=== PATIENT | male | born 1955 | race Caucasian/White ===

== ENCOUNTER 2017-10-08 16:39 | Inpatient (IN) | payer MEDICARE, MEDICAID ==
--- NOTE | 2017-10-08 18:04 | ED Physician Chart ---
ED Chief Complaint/HPI - Patient Information Date Seen:: 10/08/17 Time Seen:: 18:00 Chief Complaint:: Wanted to end life History of Present Illness:: 62 yo male wanted to "euthanize'' himself because he was blind and he also worried that social security would end soon. Allergies:: Allergies Allergy/AdvReac Type Severity Reaction Status Date / Time fluphenazine Allergy Verified 04/07/16 14:52 prolixin Allergy Uncoded 11/22/15 16:40 Vitals:: Vital Signs - 8 hr 10/08/17 16:42 Temp 98.5 F HR 69 RR 17 BP 141/86 O2 Sat % 98 Family Medical History - Family Member Mother History Unknown: Yes Ethnicity: Unknown Living Status: Unknown Hx Family Cancer: (Unknown) Hx Family Coronary Artery Disease: (Unknown) Hx Family Congestive Heart Failure: (Unknown) Hx Family Hypertension: (Unknown) Hx Family Stroke: (Unknown) Hx Family Diabetes: (Unknown) Hx Family Seizures: (Unknown) Hx Family Dementia: (Unknown) Hx Family AIDS: (Unknown) Hx Family HIV: No Hx Family COPD: (Unknown) Hx Family Hepatitis: (Unknown) Hx Family Psychiatric Problems: (Unknown) Hx Family Tuberculosis: (Unknown) Father History Unknown: Yes Ethnicity: Unknown Living Status: Unknown Hx Family Hypertension: Yes Hx Family Psychiatric Problems: Yes ED Septic Shock - <6hrs of presentation: Vital Signs: Vital Signs - 8 hr 10/08/17 16:42 Temp 98.5 F HR 69 RR 17 BP 141/86 O2 Sat % 98 ED Discharge Plan - Patient Disposition Instructions: Psychosis
[2017-10-08 18:32] LABS: % BASOPHILS 1.6 % (0.0-2.0); % EOSINOPHILS 2.1 % (0.0-5.0); % LYMPHOCYTES 28.6 % (20.0-50.0); % NEUTROPHILS 58.7 % (40.0-80.0); BASOPHILE ABSOLUTE 0.1 Th/cumm (0-0.2); EOSINOPHILE ABSOLUTE 0.1 Th/cmm (0.1-0.4); HEMATOCRIT 38.8 % (41.0-60); HEMOGLOBIN 13.3 gm/dL (12-16); LYMPHOCYTE ABSOLUTE 1.3 Th/cmm (1.5-3.0); MEAN CELL VOLUME 88.1 fl (80-99); MEAN CORPUSCULAR HEMOGLOBIN 30.2 pg (26.0-30.0); MEAN CORPUSCULAR HGB CONC 34.2 pg (28.0-36.0); MEAN PLATELET VOLUME 7.4 fl; MONOCYTE ABSOLUTE 0.4 Th/cmm (0.3-1.0); NEUTROPHILE ABSOLUTE 2.6 Th/cmm (1.8-8.0); PLATELET COUNT 184 Th/cmm (150-400); RED BLOOD COUNT 4.41 Mil/cmm (4.30-5.70); RED CELL DISTRIBUTION WIDTH 12.8 % (11.5-20.0); WHITE BLOOD COUNT 4.5 Th/cmm (4.8-10.8)
[2017-10-08 18:44] LABS: URINE MICROSCOPIC INDICATED? YES; URINE SOURCE RANDOM
[2017-10-08 18:48] LABS: ALB/GLOB RATIO 1.4 (1.0-1.8); ALBUMIN 3.7 gm/dL (4.2-5.5); ALKALINE PHOSPHATASE 46 U/L (34-104); BILIRUBIN,TOTAL 0.5 mg/dL (0.3-1.0); BUN - UREA NITROGEN 15 mg/dL (7-25); CALCIUM SERUM 9.1 mg/dL (8.6-10.3); CHLORIDE 106 mEq/L (98-107); CREATININE - SERUM 0.7 mg/dL (0.7-1.3); GFR AFRICAN-AMERICAN > 60.0 ml/min (>90); GFR NON AFRICAN-AMERICAN > 60.0 ml/min; GLUCOSE 99 mg/dL (70-105); SGOT 11 U/L (13-39); SGPT/ALT 5 U/L (7-52); SODIUM SERUM 138 mEq/L (136-145); TOTAL PROTEIN,SERUM 6.4 gm/dL (6.0-8.3)
[2017-10-08 18:50] LABS: URINE BILIRUBIN NEGATIVE (NEGATIVE); URINE BLOOD NEGATIVE (NEGATIVE); URINE GLUCOSE (UA) NEGATIVE (NEGATIVE); URINE KETONE TRACE mg/dL (NEGATIVE); URINE LEUKOCYTE ESTERASE NEGATIVE (NEGATIVE); URINE NITRATE NEGATIVE (NEGATIVE); URINE PH 6.5 (4.6 - 8.0); URINE PROTEIN NEGATIVE (NEGATIVE)
[2017-10-08 18:53] LABS: URINE CLARITY CLEAR (CLEAR); URINE COLOR YELLOW
[2017-10-08 18:54] LABS: URINE BACTERIA NONE SEEN /hpf (NONE SEEN); URINE EPITHELIAL CELLS NONE SEEN /lpf (FEW); URINE RBC NONE SEEN /hpf (0-5); URINE WBC NONE SEEN /hpf (0-5)
[2017-10-08] MEDS ORDERED: Maalox 30 mL Cup PO PRN (21:10)
[2017-10-08] MEDS ORDERED: Magnesium Hydroxide (MOM) 30 mL UDC PO PRN (21:10)
[2017-10-09 03:14] VITALS: BP 116/66
--- NOTE | 2017-10-09 08:25 | Diagnostic Imaging Report ---
Portable chest x-ray HISTORY: Shortness of breath The heart size appears somewhat generous. No focal pulmonary processes. No hilar or mediastinal abnormalities. IMPRESSION: 1. No acute focal pulmonary processes
[2017-10-09] MEDS: Multivitamin Tab PO SCH (09:14)
[2017-10-09] MEDS: Escitalopram Oxalate 5 mg Tab PO SCH (09:14)
[2017-10-09] MEDS ORDERED: Magnesium Hydroxide (MOM) 30 mL UDC PO PRN (13:02)
--- NOTE | 2017-10-09 16:36 | History & Physical ---
ADMIT DATE: 10/08/2017 CHIEF COMPLAINT: Medical evaluation and clearance. The patient admitted to inpatient unit. HISTORY OF PRESENT ILLNESS: This is a 62-year-old male with history of hypertension, asthma, BPH. The patient was admitted from nursing facility secondary to complaints of ____. The patient is a poor historian. PAST MEDICAL HISTORY: As mentioned in history of present illness. PAST SURGICAL HISTORY: Unable to obtain from the patient. ALLERGIES: PROLIXIN. MEDICATIONS: Tylenol, Norvasc, Colace, Lexapro, Ativan, multivitamin, and Zyprexa. FAMILY HISTORY: Noncontributory. SOCIAL HISTORY: The patient is a shelter patient. REVIEW OF SYSTEMS: This is limited secondary to the patient's comatose state. We will try to obtain more detailed review of systems at a later date by talking to family members and listening to patient. We will try to get more information from Dr. Angulo. PHYSICAL EXAMINATION: VITAL SIGNS: Blood pressure 136/76, respirations 16, pulse 73, and temperature 97.9. GENERAL: Elderly male, who appears chronically ill. NECK: Supple. No mass. LUNGS: Equal breath sounds, few rhonchi ____ HEART: Regular rate and rhythm without systolic ejection murmur. ABDOMEN: Soft, globular. EXTREMITIES: Positive excoriations. LABORATORY DATA: WBC is 4.5, hemoglobin 13, and platelets 184. Sodium 138, potassium 4.0, BUN 15, creatinine 0.7, AST and ALT are 11 and 5, albumin 3.7. ASSESSMENT AND PLAN: Hypertension, asthma, benign prostatic hypertrophy, legal blindness, leukopenia, schizoaffective disorder, mild protein-calorie malnutrition. We will review the patient's medication. We will give the patient adequate nutritional support. Continue the patient on return as needed basis. Continue on Norvasc. We will continue with the current care with followup consult. We will continue to follow the patient with Dr. Angulo. JOB# [id number]
--- NOTE | 2017-10-09 20:30 | Psychosocial Evaluation ---
DATE OF SERVICE: 10/09/2017 JUSTIFICATION FOR HOSPITALIZATION: Suicidal, he wanted to euthanize himself. HISTORY OF PRESENT ILLNESS: A 62-year-old male, depressed, overwhelmed. States he is suicidal. States he is legally blind, fearful to lose his SSI, hopeless and despairing, not sleeping very well, fair appetite, talking about "euthanasia." PAST PSYCHIATRIC HISTORY: He has thought about suicide in the past, never attempted. MEDICATIONS: Reviewed. FAMILY PSYCH HISTORY: Unknown. SOCIAL HISTORY: Born in [place], not , states he had been but "we split up." No drugs, no alcohol, no tobacco, no kids. The patient currently residing in the [facility]. MENTAL STATUS EXAMINATION: Stated age. Fair eye contact. Apparently legally blind. Speech within normal limits. Mood depressed. Affect depressed. Thought processes were linear. The patient talking about suicide, endorsing thoughts to overdose. No HI. No overt psychotic symptoms. Insight and judgment diminished. PROVISIONAL DIAGNOSES: Major depression, recurrent, severe. No overt psychosis. Medical: Please see full H and P. ESTIMATED LENGTH OF STAY: 7-10 days. ASSESSMENT: The patient suicidal, depressed, overwhelmed, hopeless. PLAN: Initiate antidepressant medications. TREATMENT PLAN: Includes group as well as milieu therapy. CONDITIONS FOR DISCHARGE: Improved mood, improved affect, cessation of any SI, better coping. JOB# [id number]
--- NOTE | 2017-10-10 06:35 | Progress Notes ---
DATE: 10/10/2017 SUBJECTIVE: A 62-year-old male, depressed, overwhelmed, suicidal, legally blind and fearful to lose his SSI, hopeless, despairing talking about euthanasia. On [id number], the patient refusing to speak with me stating, "I am sleeping" go away, does not want to engage with me, still appearing depressed, melancholic, low energy, reclusive, isolative, still talking about euthanasia. MEDICATIONS: Reviewed. ASSESSMENT: The patient remains symptomatic, depressed, overwhelmed, suicidal, irritable, does not want to engage with me. PLAN: Continue to monitor. Continue Lexapro, given his ongoing symptoms, he is not safe for discharge. [facility]# [id number]
[2017-10-10] MEDS: Multivitamin Tab PO SCH (10:00)
[2017-10-10] MEDS: Escitalopram Oxalate 5 mg Tab PO SCH (10:00)
[2017-10-10] MEDS: Multivitamin w/ Minerals Tab PO SCH (10:00)
--- NOTE | 2017-10-10 12:44 | Internal Medicine Prog Note ---
Internal Medicine Subjective - Subjective Patient seen and examined:: with staff, chart reviewed Patient is:: asleep, interactive, in bed, agitated Per staff patient has:: no adverse event, no episodes of fall, poor appetite, tolerating meds Internal Medicine Objective - Results Result Diagrams: 10/08/17 18:24 10/08/17 18: Recent Labs: Laboratory Last Values WBC 4.5 Th/cmm (4.8-10.8) L 10/08/17 18: RBC 4.41 Mil/cmm (4.30-5.70) 10/08/17 18: Hgb 13.3 gm/dL (12-16) 10/08/17: Hct 38.8 % (41.0-60) L 10/08/17: MCV 88.1 fl (80-99) 10/08/17 18: MCH 30.2 pg (26.0-30.0) H 10/08/17: MCHC Differential 34.2 pg (28.0-36.0) 10/08/17: RDW 12.8 % (11.5-20.0) 10/08/17: Plt Count 184 Th/cmm (150-400) 10/08/17: MPV 7.4 fl 10/08/17: Neutrophils % 58.7 % (40.0-80.0) 10/08/17: Lymphocytes % 28.6 % (20.0-50.0) 10/08/17: Monocytes % 9.0 % (2.0-10.0) 10/08/17: Eosinophils % 2.1 % (0.0-5.0) 10/08/17: Basophils % 1.6 % (0.0-2.0) 10/08/17 18: Sodium 138 mEq/L (136-145) 10/08/17 18: Potassium 4.0 mEq/L (3.5-5.1) 10/08/17 18: Chloride 106 mEq/L (98-107) 10/08/17 18: Carbon Dioxide 28.0 mEq/L (21.0-31.0) 10/08/17 18: Anion Gap 8.0 (7.0-16.0) 10/08/17 18:24 BUN 15 mg/dL (7-25) 10/08/17 18:24 Creatinine 0.7 mg/dL (0.7-1.3) 10/08/17 18:24 Est GFR ( Amer) > 60.0 ml/min (>90) 10/08/17 18:24 Est GFR (Non-Af Amer) > 60.0 ml/min 10/08/17 18:24 BUN/Creatinine Ratio 21.4 10/08/17 18:24 Glucose 99 mg/dL (70-105) 10/08/17 18:24 Calcium 9.1 mg/dL (8.6-10.3) 10/08/17 18:24 Total Bilirubin 0.5 mg/dL (0.3-1.0) 10/08/17 18:24 AST 11 U/L (13-39) L 10/08/17 18:24 ALT 5 U/L (7-52) L 10/08/17 18:24 Alkaline Phosphatase 46 U/L (34-104) 10/08/17 18:24 Total Protein 6.4 gm/dL (6.0-8.3) 10/08/17 18:24 Albumin 3.7 gm/dL (4.2-5.5) L 10/08/17 18:24 Globulin 2.7 gm/dL 10/08/17 18:24 Albumin/Globulin Ratio 1.4 (1.0-1.8) 10/08/17 18: TSH 1.68 uIU/ml (0.34-5.60) 10/08/17 18: Urine Source RANDOM 10/08/17 18:36 Urine Color YELLOW 10/08/17 18:36 Urine Clarity CLEAR (CLEAR) 10/08/17 18:36 Urine pH 6.5 (4.6 - 8.0) 10/08/17 18:36 Ur Specific [place] 1.020 (1.005-1.030) 10/08/17 18:36 Urine Protein NEGATIVE mg/dL (NEGATIVE) 10/08/17 18:36 Urine Glucose (UA) NEGATIVE mg/dL (NEGATIVE) 10/08/17 18:36 Urine Ketones TRACE mg/dL (NEGATIVE) 10/08/17 18:36 Urine Blood NEGATIVE (NEGATIVE) 10/08/17 18:36 Urine Nitrate NEGATIVE (NEGATIVE) 10/08/17 18:36 Urine Bilirubin NEGATIVE (NEGATIVE) 10/08/17 18:36 Urine Urobilinogen 1.0 E.U./dL (0.2 - 1.0) 10/08/17 18:36 Ur Leukocyte Esterase NEGATIVE (NEGATIVE) 10/08/17 18:36 Urine RBC NONE SEEN /hpf (0-5) 10/08/17 18:36 Urine WBC NONE SEEN /hpf (0-5) 10/08/17 18:36 Ur Epithelial Cells NONE SEEN /lpf (FEW) 10/08/17 18:36 Urine Bacteria NONE SEEN /hpf (NONE SEEN) 10/08/17 18:36 - Physical Exam Vitals and I&O: Vital Signs Temp 98.1 F 10/10/17 06:49 Pulse 60 10/10/17 08:00 Resp 20 10/10/17 08:00 BP 108/63 10/10/17 06:49 Pulse Ox 96 10/10/17 06:49 Intake & Output 10/09/17 10/10/17 10/10/17 18:59 06:59 18:59 Intake Total 800 120 Balance 800 120 Intake: Oral 800 120 Other: # Voids 3 2 # Bowel Movements 0 Active Medications: Current Medications Acetaminophen (Tylenol) 650 mg PO Q4HR PRN PRN Reason: Mild Pain / Temp above 100 Stop: 12/07/17 21:09 Acetaminophen (Tylenol) 650 mg PO Q4HR PRN PRN Reason: Pain Stop: 12/08/17 13:01 Al Hydrox/Mg Hydrox/Simethicone (Maalox) 30 ml PO Q4HR PRN PRN Reason: GI DISTRESS Stop: 12/07/17 21:09 Amlodipine Besylate (Norvasc) 2.5 mg PO DAILY [facility] Stop: 12/09/17 08:59 Last Admin: 10/10/17 10:13 Dose: Not Given Docusate Sodium (Colace) 100 mg PO BID [facility] Stop: 12/08/17 16:59 Last Admin: 10/10/17 10:00 Dose: 100 mg Escitalopram Oxalate (Lexapro) 5 mg PO DAILY SHERRY PRN Reason: Protocol Stop: 12/08/17 08:59 Last Admin: 10/10/17 10:00 Dose: 5 mg Lorazepam (Ativan) 0.5 mg PO Q4HR PRN; Protocol PRN Reason: Anxiety Stop: 11/07/17 21:09 Magnesium Hydroxide (Milk Of Magnesia) 30 ml PO HS PRN PRN Reason: Constipation Magnesium Hydroxide (Milk Of Magnesia) 30 ml PO DAILY PRN PRN Reason: Constipation Stop: 12/08/17 13:01 Multivitamins/Vitamin C (Theragran) 1 tab PO DAILY SHERRY Stop: 12/08/17 08:59 Last Admin: 10/10/17 10:00 Dose: 1 tab Zolpidem Tartrate (Ambien) 5 mg PO HS PRN PRN Reason: Insomnia Stop: 12/07/17 21:09 Last Admin: 10/09/17 22:17 Dose: 5 mg General: demented HEENT: NC/AT, PERRLA Neck: Supple, No JVD Lungs: CTAB Cardiovascular: RRR, Normal S1, Normal S2 Abdomen: soft, non-tender, globular, non-distended, positive bowel sound Extremities: excoriation Neurological: no change, disorganized - Procedures Procedures: Procedures Procedure Code Date EMERGENCY DEPT VISIT 88305 10/29/11 GROUP PSYCHOTHERAPY 15411 11/22/15 GROUP PSYCHOTHERAPY GZHZZZZ 11/22/15 GROUP PSYCHOTHERAPY 74832 08/21/15 GROUP PSYCHOTHERAPY GZHZZZZ 08/21/15 OTHER GROUP THERAPY 94.44 02/19/15 Internal Medicine Assmt/Plan - Assessment Assessment: ASSESSMENT AND PLAN: Hypertension, asthma, benign prostatic hypertrophy, legal blindness, leukopenia, schizoaffective disorder, mild protein-calorie malnutrition. - Plan Plan: AWe will review the patient's medication. We will give the patient adequate nutritional support. Continue the patient on return as needed basis. Continue on Norvasc. We will continue with the current care with followup consult.
[2017-10-11] MEDS: Multivitamin Tab PO SCH (08:39)
[2017-10-11] MEDS: Escitalopram Oxalate 5 mg Tab PO SCH (08:40)
[2017-10-11] MEDS: Multivitamin w/ Minerals Tab PO SCH (08:40)
--- NOTE | 2017-10-11 09:20 | Internal Medicine Prog Note ---
Internal Medicine Subjective - Subjective Service Date: 10/11/17 Patient is:: asleep, interactive, in bed, agitated Per staff patient has:: no adverse event, no episodes of fall, poor appetite, tolerating meds Internal Medicine Objective - Results Result Diagrams: 10/08/17 18:24 10/08/17 18: Recent Labs: Laboratory Last Values WBC 4.5 Th/cmm (4.8-10.8) L 10/08/17: RBC 4.41 Mil/cmm (4.30-5.70) 10/08/17: Hgb 13.3 gm/dL (12-16) 10/08/17: Hct 38.8 % (41.0-60) L 10/08/17: MCV 88.1 fl (80-99) 10/08/17: MCH 30.2 pg (26.0-30.0) H 10/08/17: MCHC Differential 34.2 pg (28.0-36.0) 10/08/17: RDW 12.8 % (11.5-20.0) 10/08/17: Plt Count 184 Th/cmm (150-400) 10/08/17: MPV 7.4 fl 10/08/17: Neutrophils % 58.7 % (40.0-80.0) 10/08/17: Lymphocytes % 28.6 % (20.0-50.0) 10/08/17: Monocytes % 9.0 % (2.0-10.0) 10/08/17: Eosinophils % 2.1 % (0.0-5.0) 10/08/17: Basophils % 1.6 % (0.0-2.0) 10/08/17 18: Sodium 138 mEq/L (136-145) 10/08/17: Potassium 4.0 mEq/L (3.5-5.1) 10/08/17: Chloride 106 mEq/L (98-107) 10/08/17 18: Carbon Dioxide 28.0 mEq/L (21.0-31.0) 10/08/17 18: Anion Gap 8.0 (7.0-16.0) 10/08/17 18:24 BUN 15 mg/dL (7-25) 10/08/17 18:24 Creatinine 0.7 mg/dL (0.7-1.3) 10/08/17 18:24 Est GFR ( Amer) > 60.0 ml/min (>90) 10/08/17 18:24 Est GFR (Non-Af Amer) > 60.0 ml/min 10/08/17 18:24 BUN/Creatinine Ratio 21.4 10/08/17 18:24 Glucose 99 mg/dL (70-105) 10/08/17 18:24 Calcium 9.1 mg/dL (8.6-10.3) 10/08/17 18:24 Total Bilirubin 0.5 mg/dL (0.3-1.0) 10/08/17 18:24 AST 11 U/L (13-39) L 10/08/17 18:24 ALT 5 U/L (7-52) L 10/08/17 18:24 Alkaline Phosphatase 46 U/L (34-104) 10/08/17 18:24 Total Protein 6.4 gm/dL (6.0-8.3) 10/08/17 18:24 Albumin 3.7 gm/dL (4.2-5.5) L 10/08/17 18:24 Globulin 2.7 gm/dL 10/08/17 18:24 Albumin/Globulin Ratio 1.4 (1.0-1.8) 10/08/17 18:24 TSH 1.68 uIU/ml (0.34-5.60) 10/08/17 18:24 Urine Source RANDOM 10/08/17 18:36 Urine Color YELLOW 10/08/17 18:36 Urine Clarity CLEAR (CLEAR) 10/08/17 18:36 Urine pH 6.5 (4.6 - 8.0) 10/08/17 18:36 Ur Specific [place] 1.020 (1.005-1.030) 10/08/17 18:36 Urine Protein NEGATIVE mg/dL (NEGATIVE) 10/08/17 18:36 Urine Glucose (UA) NEGATIVE mg/dL (NEGATIVE) 10/08/17 18:36 Urine Ketones TRACE mg/dL (NEGATIVE) 10/08/17 18:36 Urine Blood NEGATIVE (NEGATIVE) 10/08/17 18:36 Urine Nitrate NEGATIVE (NEGATIVE) 10/08/17 18:36 Urine Bilirubin NEGATIVE (NEGATIVE) 10/08/17 18:36 Urine Urobilinogen 1.0 E.U./dL (0.2 - 1.0) 10/08/17 18:36 Ur Leukocyte Esterase NEGATIVE (NEGATIVE) 10/08/17 18:36 Urine RBC NONE SEEN /hpf (0-5) 10/08/17 18:36 Urine WBC NONE SEEN /hpf (0-5) 10/08/17 18:36 Ur Epithelial Cells NONE SEEN /lpf (FEW) 10/08/17 18:36 Urine Bacteria NONE SEEN /hpf (NONE SEEN) 10/08/17 18:36 - Physical Exam Vitals and I&O: Vital Signs Temp 98.8 F 10/11/17 07:02 Pulse 61 10/11/17 08:40 Resp 20 10/11/17 07:02 BP 110/59 10/11/17 08:40 Pulse Ox 98 10/11/17 07:02 Intake & Output 10/10/17 10/11/17 10/11/17 18:59 06:59 18:59 Intake Total 800 360 Balance 800 360 Intake: Oral 800 360 Other: # Voids 3 2 # Bowel Movements 0 Active Medications: Current Medications Acetaminophen (Tylenol) 650 mg PO Q4HR PRN PRN Reason: Mild Pain / Temp above 100 Stop: 12/07/17 21:09 Acetaminophen (Tylenol) 650 mg PO Q4HR PRN PRN Reason: Pain Stop: 12/08/17 13:01 Al Hydrox/Mg Hydrox/Simethicone (Maalox) 30 ml PO Q4HR PRN PRN Reason: GI DISTRESS Stop: 12/07/17 21:09 Amlodipine Besylate (Norvasc) 2.5 mg PO DAILY [facility]ERRY Stop: 12/09/17 08:59 Last Admin: 10/11/17 08:40 Dose: 2.5 mg Docusate Sodium (Colace) 100 mg PO BID [facility]Y Stop: 12/08/17 16:59 Last Admin: 10/11/17 08:40 Dose: 100 mg Escitalopram Oxalate (Lexapro) 5 mg PO DAILY SHERRY PRN Reason: Protocol Stop: 12/08/17 08:59 Last Admin: 10/11/17 08:40 Dose: 5 mg Lorazepam (Ativan) 0.5 mg PO Q4HR PRN; Protocol PRN Reason: Anxiety Stop: 11/07/17 21:09 Magnesium Hydroxide (Milk Of Magnesia) 30 ml PO HS PRN PRN Reason: Constipation Magnesium Hydroxide (Milk Of Magnesia) 30 ml PO DAILY PRN PRN Reason: Constipation Stop: 12/08/17 13:01 Multivitamins/Vitamin C (Theragran) 1 tab PO DAILY [facility]ERRY Stop: 12/08/17 08:59 Last Admin: 10/11/17 08:39 Dose: 1 tab Zolpidem Tartrate (Ambien) 5 mg PO HS PRN PRN Reason: Insomnia Stop: 12/07/17 21:09 Last Admin: 10/10/17 20:12 Dose: 5 mg General: demented HEENT: NC/AT, PERRLA Neck: Supple, No JVD Lungs: CTAB Cardiovascular: RRR, Normal S1, Normal S2 Abdomen: soft, non-tender, globular, non-distended, positive bowel sound Extremities: excoriation Neurological: no change, disorganized - Procedures Procedures: Procedures Procedure Code Date EMERGENCY DEPT VISIT 40394 10/29/11 GROUP PSYCHOTHERAPY 94528 11/22/15 GROUP PSYCHOTHERAPY GZHZZZZ 11/22/15 GROUP PSYCHOTHERAPY 11542 08/21/15 GROUP PSYCHOTHERAPY GZHZZZZ 08/21/15 OTHER GROUP THERAPY 94.44 02/19/15 Internal Medicine Assmt/Plan - Assessment Assessment: Hypertension, asthma, benign prostatic hypertrophy, legal blindness, leukopenia, schizoaffective disorder, mild protein-calorie - Plan Plan: monitor blood pressure safety precautions continue current orders
--- NOTE | 2017-10-12 07:06 | Progress Notes ---
DATE: 10/11/2017 The patient is currently in the hospital, suicidal, was talking about euthanasia, still depressed, overwhelmed, remains somewhat occlusive, isolative, upset due to his medical conditions. He is amenable to speaking with me today, still with hopeless and helpless thoughts. MEDICATIONS: Reviewed. ASSESSMENT: The patient remains symptomatic, occlusive, isolative, depressed, still with talks of euthanasia. PLAN: We will continue to monitor. Continue Lexapro. Given safety concerns and has ongoing symptoms, there are really no overt safety concerns. JOB# [id number]
[2017-10-12] MEDS: Escitalopram Oxalate 5 mg Tab PO SCH (08:14)
[2017-10-12] MEDS: Multivitamin w/ Minerals Tab PO SCH (08:14)
--- NOTE | 2017-10-12 12:15 | Internal Medicine Prog Note ---
Internal Medicine Subjective - Subjective Service Date: 10/12/17 Patient is:: asleep, interactive, in bed, agitated Per staff patient has:: no adverse event, no episodes of fall, poor appetite, tolerating meds Internal Medicine Objective - Results Result Diagrams: 10/08/17 18:24 10/08/17 18: Recent Labs: Laboratory Last Values WBC 4.5 Th/cmm (4.8-10.8) L 10/08/17: RBC 4.41 Mil/cmm (4.30-5.70) 10/08/17: Hgb 13.3 gm/dL (12-16) 10/08/17: Hct 38.8 % (41.0-60) L 10/08/17: MCV 88.1 fl (80-99) 10/08/17: MCH 30.2 pg (26.0-30.0) H 10/08/17 MCHC Differential 34.2 pg (28.0-36.0) 10/08/17: RDW 12.8 % (11.5-20.0) 10/08/17: Plt Count 184 Th/cmm (150-400) 10/08/17: MPV 7.4 fl 10/08/17: Neutrophils % 58.7 % (40.0-80.0) 10/08/17: Lymphocytes % 28.6 % (20.0-50.0) 10/08/17: Monocytes % 9.0 % (2.0-10.0) 10/08/17: Eosinophils % 2.1 % (0.0-5.0) 10/08/17: Basophils % 1.6 % (0.0-2.0) 10/08/17: Sodium 138 mEq/L (136-145) 10/08/17: Potassium 4.0 mEq/L (3.5-5.1) 10/08/17: Chloride 106 mEq/L (98-107) 10/08/17: Carbon Dioxide 28.0 mEq/L (21.0-31.0) 10/08/17 18: Anion Gap 8.0 (7.0-16.0) 10/08/17 18:24 BUN 15 mg/dL (7-25) 10/08/17 18:24 Creatinine 0.7 mg/dL (0.7-1.3) 10/08/17 18:24 Est GFR ( Amer) > 60.0 ml/min (>90) 10/08/17 18:24 Est GFR (Non-Af Amer) > 60.0 ml/min 10/08/17 18:24 BUN/Creatinine Ratio 21.4 10/08/17 18:24 Glucose 99 mg/dL (70-105) 10/08/17 18:24 Calcium 9.1 mg/dL (8.6-10.3) 10/08/17 18:24 Total Bilirubin 0.5 mg/dL (0.3-1.0) 10/08/17 18:24 AST 11 U/L (13-39) L 10/08/17 18:24 ALT 5 U/L (7-52) L 10/08/17 18:24 Alkaline Phosphatase 46 U/L (34-104) 10/08/17 18:24 Total Protein 6.4 gm/dL (6.0-8.3) 10/08/17 18:24 Albumin 3.7 gm/dL (4.2-5.5) L 10/08/17 18:24 Globulin 2.7 gm/dL 10/08/17 18:24 Albumin/Globulin Ratio 1.4 (1.0-1.8) 10/08/17 18:24 TSH 1.68 uIU/ml (0.34-5.60) 10/08/17 18:24 Urine Source RANDOM 10/08/17 18:36 Urine Color YELLOW 10/08/17 18:36 Urine Clarity CLEAR (CLEAR) 10/08/17 18:36 Urine pH 6.5 (4.6 - 8.0) 10/08/17 18:36 Ur Specific [place] 1.020 (1.005-1.030) 10/08/17 18:36 Urine Protein NEGATIVE mg/dL (NEGATIVE) 10/08/17 18:36 Urine Glucose (UA) NEGATIVE mg/dL (NEGATIVE) 10/08/17 18:36 Urine Ketones TRACE mg/dL (NEGATIVE) 10/08/17 18:36 Urine Blood NEGATIVE (NEGATIVE) 10/08/17 18:36 Urine Nitrate NEGATIVE (NEGATIVE) 10/08/17 18:36 Urine Bilirubin NEGATIVE (NEGATIVE) 10/08/17 18:36 Urine Urobilinogen 1.0 E.U./dL (0.2 - 1.0) 10/08/17 18:36 Ur Leukocyte Esterase NEGATIVE (NEGATIVE) 10/08/17 18:36 Urine RBC NONE SEEN /hpf (0-5) 10/08/17 18:36 Urine WBC NONE SEEN /hpf (0-5) 10/08/17 18:36 Ur Epithelial Cells NONE SEEN /lpf (FEW) 10/08/17 18:36 Urine Bacteria NONE SEEN /hpf (NONE SEEN) 10/08/17 18:36 - Physical Exam Vitals and I&O: Vital Signs Temp 97.8 F 10/12/17 06:02 Pulse 68 10/12/17 06:02 Resp 20 10/12/17 06:02 BP 106/58 10/12/17 06:02 Pulse Ox 97 10/12/17 06:02 Intake & Output 10/11/17 10/12/17 10/12/17 18:59 06:59 18:59 Intake Total 900 240 Balance 900 240 Weight (lbs) 175 lb Intake: Oral 900 240 Other: # Voids 4 3 # Bowel Movements 0 0 Active Medications: Current Medications Acetaminophen (Tylenol) 650 mg PO Q4HR PRN PRN Reason: Mild Pain / Temp above 100 Stop: 12/07/17 21:09 Acetaminophen (Tylenol) 650 mg PO Q4HR PRN PRN Reason: Pain Stop: 12/08/17 13:01 Al Hydrox/Mg Hydrox/Simethicone (Maalox) 30 ml PO Q4HR PRN PRN Reason: GI DISTRESS Stop: 12/07/17 21:09 Amlodipine Besylate (Norvasc) 2.5 mg PO DAILY [facility] Stop: 12/09/17 08:59 Last Admin: 10/12/17 08:16 Dose: Not Given Docusate Sodium (Colace) 100 mg PO BID [facility] Stop: 12/08/17 16:59 Last Admin: 10/12/17 08:16 Dose: 100 mg Escitalopram Oxalate (Lexapro) 5 mg PO DAILY SHERRY PRN Reason: Protocol Stop: 12/08/17 08:59 Last Admin: 10/12/17 08:14 Dose: 5 mg Lorazepam (Ativan) 0.5 mg PO Q4HR PRN; Protocol PRN Reason: Anxiety Stop: 11/07/17 21:09 Last Admin: 10/11/17 15:08 Dose: 0.5 mg Magnesium Hydroxide (Milk Of Magnesia) 30 ml PO HS PRN PRN Reason: Constipation Magnesium Hydroxide (Milk Of Magnesia) 30 ml PO DAILY PRN PRN Reason: Constipation Stop: 12/08/17 13:01 Zolpidem Tartrate (Ambien) 5 mg PO HS PRN PRN Reason: Insomnia Stop: 12/07/17 21:09 Last Admin: 10/10/17 20:12 Dose: 5 mg General: demented HEENT: NC/AT, PERRLA Neck: Supple, No JVD Lungs: CTAB Cardiovascular: RRR, Normal S1, Normal S2 Abdomen: soft, non-tender, globular, non-distended, positive bowel sound Extremities: excoriation Neurological: no change, disorganized - Procedures Procedures: Procedures Procedure Code Date EMERGENCY DEPT VISIT 33001 10/29/11 GROUP PSYCHOTHERAPY 90493 11/22/15 GROUP PSYCHOTHERAPY GZHZZZZ 11/22/15 GROUP PSYCHOTHERAPY 99583 08/21/15 GROUP PSYCHOTHERAPY GZHZZZZ 08/21/15 OTHER GROUP THERAPY 94.44 02/19/15 Internal Medicine Assmt/Plan - Assessment Assessment: Hypertension, asthma, benign prostatic hypertrophy, legal blindness, leukopenia, schizoaffective disorder, mild protein-calorie - Plan Plan: monitor blood pressure safety precautions continue current orders
--- NOTE | 2017-10-13 02:04 | Progress Notes ---
DATE: 10/12/2017 SUBJECTIVE: The patient is currently in the hospital, apparently was suicidal, hopeless and despairing. He notes he is feeling somewhat better, still overwhelmed. No longer talking about euthanasia but he is pretty occlusive, isolative and withdrawn appearing. Sleeping well on exam, but arousable. States he slept well at night. MEDICATIONS: Reviewed. ASSESSMENT: The patient remains symptomatic, reclusive, isolative, depressed. PLAN: Some improvement noted. We will monitor and follow up, titrate medications. JOB# [id number]
[2017-10-13] MEDS: Escitalopram Oxalate 5 mg Tab PO SCH (08:16)
[2017-10-13] MEDS: Multivitamin w/ Minerals Tab PO SCH (08:17)
--- NOTE | 2017-10-13 13:06 | Internal Medicine Prog Note ---
Internal Medicine Subjective - Subjective Service Date: 10/13/17 Patient is:: asleep, interactive, in bed, agitated Per staff patient has:: no adverse event, no episodes of fall, poor appetite, tolerating meds Internal Medicine Objective - Results Result Diagrams: 10/08/17 18:24 10/08/17 18: Recent Labs: Laboratory Last Values WBC 4.5 Th/cmm (4.8-10.8) L 10/08/17: RBC 4.41 Mil/cmm (4.30-5.70) 10/08/17: Hgb 13.3 gm/dL (12-16) 10/08/17: Hct 38.8 % (41.0-60) L 10/08/17: MCV 88.1 fl (80-99) 10/08/17: MCH 30.2 pg (26.0-30.0) H 10/08/17 MCHC Differential 34.2 pg (28.0-36.0) 10/08/17: RDW 12.8 % (11.5-20.0) 10/08/17: Plt Count 184 Th/cmm (150-400) 10/08/17: MPV 7.4 fl 10/08/17: Neutrophils % 58.7 % (40.0-80.0) 10/08/17: Lymphocytes % 28.6 % (20.0-50.0) 10/08/17: Monocytes % 9.0 % (2.0-10.0) 10/08/17: Eosinophils % 2.1 % (0.0-5.0) 10/08/17: Basophils % 1.6 % (0.0-2.0) 10/08/17: Sodium 138 mEq/L (136-145) 10/08/17: Potassium 4.0 mEq/L (3.5-5.1) 10/08/17: Chloride 106 mEq/L (98-107) 10/08/17: Carbon Dioxide 28.0 mEq/L (21.0-31.0) 10/08/17 18: Anion Gap 8.0 (7.0-16.0) 10/08/17 18:24 BUN 15 mg/dL (7-25) 10/08/17 18:24 Creatinine 0.7 mg/dL (0.7-1.3) 10/08/17 18:24 Est GFR ( Amer) > 60.0 ml/min (>90) 10/08/17 18:24 Est GFR (Non-Af Amer) > 60.0 ml/min 10/08/17 18:24 BUN/Creatinine Ratio 21.4 10/08/17 18:24 Glucose 99 mg/dL (70-105) 10/08/17 18:24 Calcium 9.1 mg/dL (8.6-10.3) 10/08/17 18:24 Total Bilirubin 0.5 mg/dL (0.3-1.0) 10/08/17 18:24 AST 11 U/L (13-39) L 10/08/17 18:24 ALT 5 U/L (7-52) L 10/08/17 18:24 Alkaline Phosphatase 46 U/L (34-104) 10/08/17 18:24 Total Protein 6.4 gm/dL (6.0-8.3) 10/08/17 18:24 Albumin 3.7 gm/dL (4.2-5.5) L 10/08/17 18:24 Globulin 2.7 gm/dL 10/08/17 18:24 Albumin/Globulin Ratio 1.4 (1.0-1.8) 10/08/17 18:24 TSH 1.68 uIU/ml (0.34-5.60) 10/08/17 18:24 Urine Source RANDOM 10/08/17 18:36 Urine Color YELLOW 10/08/17 18:36 Urine Clarity CLEAR (CLEAR) 10/08/17 18:36 Urine pH 6.5 (4.6 - 8.0) 10/08/17 18:36 Ur Specific [place] 1.020 (1.005-1.030) 10/08/17 18:36 Urine Protein NEGATIVE mg/dL (NEGATIVE) 10/08/17 18:36 Urine Glucose (UA) NEGATIVE mg/dL (NEGATIVE) 10/08/17 18:36 Urine Ketones TRACE mg/dL (NEGATIVE) 10/08/17 18:36 Urine Blood NEGATIVE (NEGATIVE) 10/08/17 18:36 Urine Nitrate NEGATIVE (NEGATIVE) 10/08/17 18:36 Urine Bilirubin NEGATIVE (NEGATIVE) 10/08/17 18:36 Urine Urobilinogen 1.0 E.U./dL (0.2 - 1.0) 10/08/17 18:36 Ur Leukocyte Esterase NEGATIVE (NEGATIVE) 10/08/17 18:36 Urine RBC NONE SEEN /hpf (0-5) 10/08/17 18:36 Urine WBC NONE SEEN /hpf (0-5) 10/08/17 18:36 Ur Epithelial Cells NONE SEEN /lpf (FEW) 10/08/17 18:36 Urine Bacteria NONE SEEN /hpf (NONE SEEN) 10/08/17 18:36 - Physical Exam Vitals and I&O: Vital Signs Temp 97.3 F 10/13/17 07:01 Pulse 91 10/13/17 08:17 Resp 20 10/13/17 07:01 BP 140/94 10/13/17 08:17 Pulse Ox 97 10/12/17 19:33 Intake & Output 10/12/17 10/13/17 10/13/17 18:59 06:59 18:59 Intake Total 900 360 Balance 900 360 Intake: Oral 900 360 Other: # Voids 3 2 # Bowel Movements 1 Stool Characteristics Soft Formed Active Medications: Current Medications Acetaminophen (Tylenol) 650 mg PO Q4HR PRN PRN Reason: Mild Pain / Temp above 100 Stop: 12/07/17 21:09 Acetaminophen (Tylenol) 650 mg PO Q4HR PRN PRN Reason: Pain Stop: 12/08/17 13:01 Al Hydrox/Mg Hydrox/Simethicone (Maalox) 30 ml PO Q4HR PRN PRN Reason: GI DISTRESS Stop: 12/07/17 21:09 Amlodipine Besylate (Norvasc) 2.5 mg PO DAILY [facility] Stop: 12/09/17 08:59 Last Admin: 10/13/17 08:17 Dose: 2.5 mg Docusate Sodium (Colace) 100 mg PO BID [facility] Stop: 12/08/17 16:59 Last Admin: 10/13/17 08:16 Dose: 100 mg Escitalopram Oxalate (Lexapro) 5 mg PO DAILY [facility]Y PRN Reason: Protocol Stop: 12/08/17 08:59 Last Admin: 10/13/17 08:16 Dose: 5 mg Lorazepam (Ativan) 0.5 mg PO Q4HR PRN; Protocol PRN Reason: Anxiety Stop: 11/07/17 21:09 Last Admin: 10/12/17 14:56 Dose: 0.5 mg Magnesium Hydroxide (Milk Of Magnesia) 30 ml PO HS PRN PRN Reason: Constipation Magnesium Hydroxide (Milk Of Magnesia) 30 ml PO DAILY PRN PRN Reason: Constipation Stop: 12/08/17 13:01 Zolpidem Tartrate (Ambien) 5 mg PO HS PRN PRN Reason: Insomnia Stop: 12/07/17 21:09 Last Admin: 10/12/17 21:15 Dose: 5 mg General: demented HEENT: NC/AT, PERRLA Neck: Supple, No JVD Lungs: CTAB Cardiovascular: RRR, Normal S1, Normal S2 Abdomen: soft, non-tender, globular, non-distended, positive bowel sound Extremities: excoriation Neurological: no change, disorganized - Procedures Procedures: Procedures Procedure Code Date EMERGENCY DEPT VISIT 63842 10/29/11 GROUP PSYCHOTHERAPY 91856 11/22/15 GROUP PSYCHOTHERAPY GZHZZZZ 11/22/15 GROUP PSYCHOTHERAPY 28514 08/21/15 GROUP PSYCHOTHERAPY GZHZZZZ 08/21/15 OTHER GROUP THERAPY 94.44 02/19/15 Internal Medicine Assmt/Plan - Assessment Assessment: Hypertension, asthma, benign prostatic hypertrophy, legal blindness, leukopenia, schizoaffective disorder, mild protein-calorie - Plan Plan: monitor blood pressure safety precautions continue current orders
--- NOTE | 2017-10-13 23:49 | Progress Notes ---
DATE: 10/13/2017 SUBJECTIVE: The patient is currently in the hospital, overwhelmed, depressed, talking about euthanasia, patient has been improving. He was somewhat unruly last night and had very poor sleep, insomnia. He was given Ativan late at night and is sleeping at this time, somewhat hard to arouse, but vitals are stable and he is arousable, but minimally interactive. MEDICATIONS: Reviewed. ASSESSMENT: The patient remains symptomatic, still depressed, withdrawn, still with insomnia and anxiety. PLAN: We will continue to monitor. Continue Lexapro, continue to address underlying anxiety and depression. JOB# [id number]
[2017-10-14] MEDS: Escitalopram Oxalate 5 mg Tab PO SCH (08:40)
[2017-10-14] MEDS: Multivitamin w/ Minerals Tab PO SCH (08:40)
--- NOTE | 2017-10-14 12:54 | Internal Medicine Prog Note ---
Internal Medicine Subjective - Subjective Service Date: 10/14/17 Patient is:: asleep, interactive, in bed, agitated Per staff patient has:: no adverse event, no episodes of fall, poor appetite, tolerating meds Internal Medicine Objective - Results Result Diagrams: 10/08/17 18:24 10/08/17 18: Recent Labs: Laboratory Last Values WBC 4.5 Th/cmm (4.8-10.8) L 10/08/17: RBC 4.41 Mil/cmm (4.30-5.70) 10/08/17: Hgb 13.3 gm/dL (12-16) 10/08/17: Hct 38.8 % (41.0-60) L 10/08/17: MCV 88.1 fl (80-99) 10/08/17: MCH 30.2 pg (26.0-30.0) H 10/08/17: MCHC Differential 34.2 pg (28.0-36.0) 10/08/17: RDW 12.8 % (11.5-20.0) 10/08/17: Plt Count 184 Th/cmm (150-400) 10/08/17: MPV 7.4 fl 10/08/17: Neutrophils % 58.7 % (40.0-80.0) 10/08/17: Lymphocytes % 28.6 % (20.0-50.0) 10/08/17: Monocytes % 9.0 % (2.0-10.0) 10/08/17: Eosinophils % 2.1 % (0.0-5.0) 10/08/17: Basophils % 1.6 % (0.0-2.0) 10/08/17 18: Sodium 138 mEq/L (136-145) 10/08/17: Potassium 4.0 mEq/L (3.5-5.1) 10/08/17: Chloride 106 mEq/L (98-107) 10/08/17: Carbon Dioxide 28.0 mEq/L (21.0-31.0) 10/08/17 18: Anion Gap 8.0 (7.0-16.0) 10/08/17 18:24 BUN 15 mg/dL (7-25) 10/08/17 18:24 Creatinine 0.7 mg/dL (0.7-1.3) 10/08/17 18:24 Est GFR ( Amer) > 60.0 ml/min (>90) 10/08/17 18:24 Est GFR (Non-Af Amer) > 60.0 ml/min 10/08/17 18:24 BUN/Creatinine Ratio 21.4 10/08/17 18:24 Glucose 99 mg/dL (70-105) 10/08/17 18:24 Calcium 9.1 mg/dL (8.6-10.3) 10/08/17 18:24 Total Bilirubin 0.5 mg/dL (0.3-1.0) 10/08/17 18:24 AST 11 U/L (13-39) L 10/08/17 18:24 ALT 5 U/L (7-52) L 10/08/17 18:24 Alkaline Phosphatase 46 U/L (34-104) 10/08/17 18:24 Total Protein 6.4 gm/dL (6.0-8.3) 10/08/17 18:24 Albumin 3.7 gm/dL (4.2-5.5) L 10/08/17 18:24 Globulin 2.7 gm/dL 10/08/17 18:24 Albumin/Globulin Ratio 1.4 (1.0-1.8) 10/08/17 18:24 TSH 1.68 uIU/ml (0.34-5.60) 10/08/17 18:24 Urine Source RANDOM 10/08/17 18:36 Urine Color YELLOW 10/08/17 18:36 Urine Clarity CLEAR (CLEAR) 10/08/17 18:36 Urine pH 6.5 (4.6 - 8.0) 10/08/17 18:36 Ur Specific [place] 1.020 (1.005-1.030) 10/08/17 18:36 Urine Protein NEGATIVE mg/dL (NEGATIVE) 10/08/17 18:36 Urine Glucose (UA) NEGATIVE mg/dL (NEGATIVE) 10/08/17 18:36 Urine Ketones TRACE mg/dL (NEGATIVE) 10/08/17 18:36 Urine Blood NEGATIVE (NEGATIVE) 10/08/17 18:36 Urine Nitrate NEGATIVE (NEGATIVE) 10/08/17 18:36 Urine Bilirubin NEGATIVE (NEGATIVE) 10/08/17 18:36 Urine Urobilinogen 1.0 E.U./dL (0.2 - 1.0) 10/08/17 18:36 Ur Leukocyte Esterase NEGATIVE (NEGATIVE) 10/08/17 18:36 Urine RBC NONE SEEN /hpf (0-5) 10/08/17 18:36 Urine WBC NONE SEEN /hpf (0-5) 10/08/17 18:36 Ur Epithelial Cells NONE SEEN /lpf (FEW) 10/08/17 18:36 Urine Bacteria NONE SEEN /hpf (NONE SEEN) 10/08/17 18:36 - Physical Exam Vitals and I&O: Vital Signs Temp 97 F 10/14/17 06:46 Pulse 62 10/14/17 08:07 Resp 18 10/14/17 06:46 BP 108/66 10/14/17 08:07 Pulse Ox 96 10/14/17 06:46 Intake & Output 10/13/17 10/14/17 10/14/17 18:59 06:59 18:59 Intake Total 1000 120 Balance 1000 120 Intake: Oral 1000 120 Other: # Voids 3 3 # Bowel Movements 0 Active Medications: Current Medications Acetaminophen (Tylenol) 650 mg PO Q4HR PRN PRN Reason: Mild Pain / Temp above 100 Stop: 12/07/17 21:09 Acetaminophen (Tylenol) 650 mg PO Q4HR PRN PRN Reason: Pain Stop: 12/08/17 13:01 Al Hydrox/Mg Hydrox/Simethicone (Maalox) 30 ml PO Q4HR PRN PRN Reason: GI DISTRESS Stop: 12/07/17 21:09 Amlodipine Besylate (Norvasc) 2.5 mg PO DAILY [facility] Stop: 12/09/17 08:59 Last Admin: 10/14/17 08:07 Dose: Not Given Docusate Sodium (Colace) 100 mg PO BID [facility] Stop: 12/08/17 16:59 Last Admin: 10/14/17 08:40 Dose: 100 mg Escitalopram Oxalate (Lexapro) 5 mg PO DAILY [facility] PRN Reason: Protocol Stop: 12/08/17 08:59 Last Admin: 10/14/17 08:40 Dose: Not Given Lorazepam (Ativan) 0.5 mg PO Q4HR PRN; Protocol PRN Reason: Anxiety Stop: 11/07/17 21:09 Last Admin: 10/12/17 14:56 Dose: 0.5 mg Magnesium Hydroxide (Milk Of Magnesia) 30 ml PO HS PRN PRN Reason: Constipation Magnesium Hydroxide (Milk Of Magnesia) 30 ml PO DAILY PRN PRN Reason: Constipation Stop: 12/08/17 13:01 Zolpidem Tartrate (Ambien) 5 mg PO HS PRN PRN Reason: Insomnia Stop: 12/07/17 21:09 Last Admin: 10/13/17 22:41 Dose: 5 mg General: demented HEENT: NC/AT, PERRLA Neck: Supple, No JVD Lungs: CTAB Cardiovascular: RRR, Normal S1, Normal S2 Abdomen: soft, non-tender, globular, non-distended, positive bowel sound Extremities: excoriation Neurological: no change, disorganized - Procedures Procedures: Procedures Procedure Code Date EMERGENCY DEPT VISIT 60908 10/29/11 GROUP PSYCHOTHERAPY 30114 11/22/15 GROUP PSYCHOTHERAPY GZHZZZZ 11/22/15 GROUP PSYCHOTHERAPY 32786 08/21/15 GROUP PSYCHOTHERAPY GZHZZZZ 08/21/15 OTHER GROUP THERAPY 94.44 02/19/15 Internal Medicine Assmt/Plan - Assessment Assessment: Hypertension, asthma, benign prostatic hypertrophy, legal blindness, leukopenia, schizoaffective disorder, mild protein-calorie - Plan Plan: monitor blood pressure safety precautions continue current orders Nutritional Asmnt/Malnutr-PDOC - Dietary Evaluation Malnutrition Findings (Please click <Entered> for more info): Nutritional Asmnt/Malnutrition Start: 10/13/17 13: 15 Text: Status: Complete Freq: Document 10/13/17 13:15 [email or web address] (Rec: 10/13/17 13:18 [email or web address]) Nutritional Asmnt/Malnutrition Patient General Information Nutritional Screening Moderate Risk Diagnosis psychosis Pertinent Medical Hx/Surgical Hx HTN, asthma, BPH Subjective Information Pt very drowsy and confused. PO intake: 50-100%. Current Diet Order/ Nutrition Support TRICIA, Boost Plus TID Pertinent Medications colace, MOM Pertinent Labs 10/08 AST: 11, ALT: 5 Nutritional Hx/Data Height 5 ft 11 in Height (Calculated Centimeters) 180.3 Current Weight (lbs) 175 lb Weight (Calculated Kilograms) 79.4 Weight (Calculated Grams) 10848.7 [place] Body Weight 172 % [place] Body Weight 102 Body Mass Index (BMI) 24.4 Weight Status Approriate GI Symptoms GI Symptoms None Last BM 2/ Difficult in: None Skin Integrity/Comment: intact, no edema Current %PO Fair (50-74%) Estimated Nutritional Goals BEE in Kcals: Using Current wt Calories/Kcals/Kg 25-30 Kcals Calculated 6196-6559 kcals Protein: Using Current wt Protein g/k Protein Calculated 80 g Fluid: ml 5543-9199 mL (1 mL/kcal) Nutritional Problem 1. Problem Problem n/a Etiology n/a Signs/Symptoms: n/a Malnutrition Alert Is there a minimum of two criteria No selected? Query Text:Check all the applicable criteria. A minimum of two criteria are recommended for diagnosis of either severe or non-severe malnutrition. Malnutrition Related to Morbid Obesity Malnutrition related to morbid obesity No Intervention/Recommendation Comments 1. Continue diet as ordered Expected Outcomes/Goals Expected Outcomes/Goals PO intake >50% monitor wt, labs, skin, PO intake
--- NOTE | 2017-10-14 20:49 | Progress Notes ---
DATE: 10/14/2017 SUBJECTIVE: The patient is currently in the hospital, depressed, had been talking about euthanasia. He does seem to be improving, still with some anxiety noted, but slept well at night time, noting any thoughts of self-harm or dissipating and decreasing. He is more interactive and engaged, still at times noted to be reclusive and isolative. MEDICATIONS: Noted. ASSESSMENT: The patient is still depressed, withdrawn, anxious, but no longer talking about euthanasia. PLAN: We will continue to monitor and follow up. Titrate medications. Encourage increased socialization. JOB# [id number]
[2017-10-15] MEDS: Multivitamin w/ Minerals Tab PO SCH (09:21)
--- NOTE | 2017-10-15 12:51 | Internal Medicine Prog Note ---
Internal Medicine Subjective - Subjective Service Date: 10/15/17 Patient is:: asleep, interactive, in bed, agitated Per staff patient has:: no adverse event, no episodes of fall, poor appetite, tolerating meds Internal Medicine Objective - Results Result Diagrams: 10/08/17 18:24 10/08/17 18: Recent Labs: Laboratory Last Values WBC 4.5 Th/cmm (4.8-10.8) L 10/08/17: RBC 4.41 Mil/cmm (4.30-5.70) 10/08/17 18: Hgb 13.3 gm/dL (12-16) 10/08/17: Hct 38.8 % (41.0-60) L 10/08/17: MCV 88.1 fl (80-99) 10/08/17: MCH 30.2 pg (26.0-30.0) H 10/08/17: MCHC Differential 34.2 pg (28.0-36.0) 10/08/17: RDW 12.8 % (11.5-20.0) 10/08/17: Plt Count 184 Th/cmm (150-400) 10/08/17: MPV 7.4 fl 10/08/17: Neutrophils % 58.7 % (40.0-80.0) 10/08/17: Lymphocytes % 28.6 % (20.0-50.0) 10/08/17: Monocytes % 9.0 % (2.0-10.0) 10/08/17: Eosinophils % 2.1 % (0.0-5.0) 10/08/17: Basophils % 1.6 % (0.0-2.0) 10/08/17 18: Sodium 138 mEq/L (136-145) 10/08/17: Potassium 4.0 mEq/L (3.5-5.1) 10/08/17: Chloride 106 mEq/L (98-107) 10/08/17 18: Carbon Dioxide 28.0 mEq/L (21.0-31.0) 10/08/17 18: Anion Gap 8.0 (7.0-16.0) 10/08/17 18:24 BUN 15 mg/dL (7-25) 10/08/17 18:24 Creatinine 0.7 mg/dL (0.7-1.3) 10/08/17 18:24 Est GFR ( Amer) > 60.0 ml/min (>90) 10/08/17 18:24 Est GFR (Non-Af Amer) > 60.0 ml/min 10/08/17 18:24 BUN/Creatinine Ratio 21.4 10/08/17 18:24 Glucose 99 mg/dL (70-105) 10/08/17 18:24 Calcium 9.1 mg/dL (8.6-10.3) 10/08/17 18:24 Total Bilirubin 0.5 mg/dL (0.3-1.0) 10/08/17 18:24 AST 11 U/L (13-39) L 10/08/17 18:24 ALT 5 U/L (7-52) L 10/08/17 18:24 Alkaline Phosphatase 46 U/L (34-104) 10/08/17 18:24 Total Protein 6.4 gm/dL (6.0-8.3) 10/08/17 18:24 Albumin 3.7 gm/dL (4.2-5.5) L 10/08/17 18:24 Globulin 2.7 gm/dL 10/08/17 18:24 Albumin/Globulin Ratio 1.4 (1.0-1.8) 10/08/17 18:24 TSH 1.68 uIU/ml (0.34-5.60) 10/08/17 18:24 Urine Source RANDOM 10/08/17 18:36 Urine Color YELLOW 10/08/17 18:36 Urine Clarity CLEAR (CLEAR) 10/08/17 18:36 Urine pH 6.5 (4.6 - 8.0) 10/08/17 18:36 Ur Specific [place] 1.020 (1.005-1.030) 10/08/17 18:36 Urine Protein NEGATIVE mg/dL (NEGATIVE) 10/08/17 18:36 Urine Glucose (UA) NEGATIVE mg/dL (NEGATIVE) 10/08/17 18:36 Urine Ketones TRACE mg/dL (NEGATIVE) 10/08/17 18:36 Urine Blood NEGATIVE (NEGATIVE) 10/08/17 18:36 Urine Nitrate NEGATIVE (NEGATIVE) 10/08/17 18:36 Urine Bilirubin NEGATIVE (NEGATIVE) 10/08/17 18:36 Urine Urobilinogen 1.0 E.U./dL (0.2 - 1.0) 10/08/17 18:36 Ur Leukocyte Esterase NEGATIVE (NEGATIVE) 10/08/17 18:36 Urine RBC NONE SEEN /hpf (0-5) 10/08/17 18:36 Urine WBC NONE SEEN /hpf (0-5) 10/08/17 18:36 Ur Epithelial Cells NONE SEEN /lpf (FEW) 10/08/17 18:36 Urine Bacteria NONE SEEN /hpf (NONE SEEN) 10/08/17 18:36 - Physical Exam Vitals and I&O: Vital Signs Temp 97 F 10/15/17 06:16 Pulse 69 10/15/17 09:20 Resp 20 10/15/17 06:16 BP 105/64 10/15/17 09:20 Pulse Ox 96 10/15/17 06:16 Intake & Output 10/14/17 10/15/17 10/15/17 18:59 06:59 18:59 Intake Total 1000 1120 Balance 1000 1120 Intake: Oral 1000 1120 Other: # Voids 2 3 # Bowel Movements 1 1 Active Medications: Current Medications Acetaminophen (Tylenol) 650 mg PO Q4HR PRN PRN Reason: Mild Pain / Temp above 100 Stop: 12/07/17 21:09 Al Hydrox/Mg Hydrox/Simethicone (Maalox) 30 ml PO Q4HR PRN PRN Reason: GI DISTRESS Stop: 12/07/17 21:09 Amlodipine Besylate (Norvasc) 2.5 mg PO DAILY [facility] Stop: 12/09/17 08:59 Last Admin: 10/15/17 09:20 Dose: Not Given Docusate Sodium (Colace) 100 mg PO BID [facility] Stop: 12/08/17 16:59 Last Admin: 10/15/17 09:21 Dose: 100 mg Escitalopram Oxalate (Lexapro) 10 mg PO DAILY [facility] PRN Reason: Protocol Stop: 12/14/17 08:59 Last Admin: 10/15/17 09:21 Dose: 10 mg Lorazepam (Ativan) 0.5 mg PO Q4HR PRN; Protocol PRN Reason: Anxiety Stop: 11/07/17 21:09 Last Admin: 10/12/17 14:56 Dose: 0.5 mg Magnesium Hydroxide (Milk Of Magnesia) 30 ml PO DAILY PRN PRN Reason: Constipation Stop: 12/08/17 13:01 Zolpidem Tartrate (Ambien) 5 mg PO HS PRN PRN Reason: Insomnia Stop: 12/07/17 21:09 Last Admin: 10/14/17 21:00 Dose: 5 mg General: demented HEENT: NC/AT, PERRLA Neck: Supple, No JVD Lungs: CTAB Cardiovascular: RRR, Normal S1, Normal S2 Abdomen: soft, non-tender, globular, non-distended, positive bowel sound Extremities: excoriation Neurological: no change, disorganized - Procedures Procedures: Procedures Procedure Code Date EMERGENCY DEPT VISIT 73185 10/29/11 GROUP PSYCHOTHERAPY 41424 11/22/15 GROUP PSYCHOTHERAPY GZHZZZZ 11/22/15 GROUP PSYCHOTHERAPY 22881 08/21/15 GROUP PSYCHOTHERAPY GZHZZZZ 08/21/15 OTHER GROUP THERAPY 94.44 02/19/15 Internal Medicine Assmt/Plan - Assessment Assessment: Hypertension, asthma, benign prostatic hypertrophy, legal blindness, leukopenia, schizoaffective disorder, mild protein-calorie - Plan Plan: monitor blood pressure safety precautions continue current orders Nutritional Asmnt/Malnutr-PDOC - Dietary Evaluation Malnutrition Findings (Please click <Entered> for more info): Nutritional Asmnt/Malnutrition Start: 10/13/17 13: 15 Text: Status: Complete Freq: Document 10/13/17 13:15 [email or web address] (Rec: 10/13/17 13:18 [email or web address]) Nutritional Asmnt/Malnutrition Patient General Information Nutritional Screening Moderate Risk Diagnosis psychosis Pertinent Medical Hx/Surgical Hx HTN, asthma, BPH Subjective Information Pt very drowsy and confused. PO intake: 50-100%. Current Diet Order/ Nutrition Support TRICIA, Boost Plus TID Pertinent Medications colace, MOM Pertinent Labs 10/08 AST: 11, ALT: 5 Nutritional Hx/Data Height 5 ft 11 in Height (Calculated Centimeters) 180.3 Current Weight (lbs) 175 lb Weight (Calculated Kilograms) 79.4 Weight (Calculated Grams) 43781.7 [place] Body Weight 172 % [place] Body Weight 102 Body Mass Index (BMI) 24.4 Weight Status Approriate GI Symptoms GI Symptoms None Last BM 10/13 Difficult in: None Skin Integrity/Comment: intact, no edema Current %PO Fair (50-74%) Estimated Nutritional Goals BEE in Kcals: Using Current wt Calories/Kcals/Kg 25-30 Kcals Calculated 6521-4616 kcals Protein: Using Current wt Protein g/k Protein Calculated 80 g Fluid: ml 5871-1052 mL (1 mL/kcal) Nutritional Problem 1. Problem Problem n/a Etiology n/a Signs/Symptoms: n/a Malnutrition Alert Is there a minimum of two criteria No selected? Query Text:Check all the applicable criteria. A minimum of two criteria are recommended for diagnosis of either severe or non-severe malnutrition. Malnutrition Related to Morbid Obesity Malnutrition related to morbid obesity No Intervention/Recommendation Comments 1. Continue diet as ordered Expected Outcomes/Goals Expected Outcomes/Goals PO intake >50% monitor wt, labs, skin, PO intake
--- NOTE | 2017-10-16 01:10 | Progress Notes ---
DATE: 10/15/2017 SUBJECTIVE: The patient is currently in the hospital, depressed, had been talking about suicide, euthanasia. On [id number], the patient remains depressed, withdrawn, still endorsing hopeless thoughts, less suicidal; however, he remains occlusive, isolative, still verbalizing depression and sadness. Medications were noted. ASSESSMENT: The patient remains depressed, withdrawn, stating that the staff have been treating him well and is feeling mildly better. PLAN: We will continue to monitor given his hopeless thoughts. There are still ongoing concerns about depression and self-harming behaviors. JOB# [id number]
[2017-10-16] MEDS: Multivitamin w/ Minerals Tab PO SCH (08:27)
--- NOTE | 2017-10-16 14:39 | Internal Medicine Prog Note ---
Internal Medicine Subjective - Subjective Service Date: 10/16/17 Patient is:: asleep, interactive, in bed, agitated Per staff patient has:: no adverse event, no episodes of fall, poor appetite, tolerating meds Internal Medicine Objective - Results Result Diagrams: 10/08/17 18:24 10/08/17 18: Recent Labs: Laboratory Last Values WBC 4.5 Th/cmm (4.8-10.8) L 10/08/17: RBC 4.41 Mil/cmm (4.30-5.70) 10/08/17: Hgb 13.3 gm/dL (12-16) 10/08/17: Hct 38.8 % (41.0-60) L 10/08/17: MCV 88.1 fl (80-99) 10/08/17: MCH 30.2 pg (26.0-30.0) H 10/08/17: MCHC Differential 34.2 pg (28.0-36.0) 10/08/17: RDW 12.8 % (11.5-20.0) 10/08/17: Plt Count 184 Th/cmm (150-400) 10/08/17: MPV 7.4 fl 10/08/17: Neutrophils % 58.7 % (40.0-80.0) 10/08/17: Lymphocytes % 28.6 % (20.0-50.0) 10/08/17: Monocytes % 9.0 % (2.0-10.0) 10/08/17: Eosinophils % 2.1 % (0.0-5.0) 10/08/17: Basophils % 1.6 % (0.0-2.0) 10/08/17: Sodium 138 mEq/L (136-145) 10/08/17: Potassium 4.0 mEq/L (3.5-5.1) 10/08/17: Chloride 106 mEq/L (98-107) 10/08/17: Carbon Dioxide 28.0 mEq/L (21.0-31.0) 10/08/17 18: Anion Gap 8.0 (7.0-16.0) 10/08/17 18:24 BUN 15 mg/dL (7-25) 10/08/17 18:24 Creatinine 0.7 mg/dL (0.7-1.3) 10/08/17 18:24 Est GFR ( Amer) > 60.0 ml/min (>90) 10/08/17 18:24 Est GFR (Non-Af Amer) > 60.0 ml/min 10/08/17 18:24 BUN/Creatinine Ratio 21.4 10/08/17 18:24 Glucose 99 mg/dL (70-105) 10/08/17 18:24 Calcium 9.1 mg/dL (8.6-10.3) 10/08/17 18:24 Total Bilirubin 0.5 mg/dL (0.3-1.0) 10/08/17 18:24 AST 11 U/L (13-39) L 10/08/17 18:24 ALT 5 U/L (7-52) L 10/08/17 18:24 Alkaline Phosphatase 46 U/L (34-104) 10/08/17 18:24 Total Protein 6.4 gm/dL (6.0-8.3) 10/08/17 18:24 Albumin 3.7 gm/dL (4.2-5.5) L 10/08/17 18:24 Globulin 2.7 gm/dL 10/08/17 18:24 Albumin/Globulin Ratio 1.4 (1.0-1.8) 10/08/17 18:24 TSH 1.68 uIU/ml (0.34-5.60) 10/08/17 18:24 Urine Source RANDOM 10/08/17 18:36 Urine Color YELLOW 10/08/17 18:36 Urine Clarity CLEAR (CLEAR) 10/08/17 18:36 Urine pH 6.5 (4.6 - 8.0) 10/08/17 18:36 Ur Specific [place] 1.020 (1.005-1.030) 10/08/17 18:36 Urine Protein NEGATIVE mg/dL (NEGATIVE) 10/08/17 18:36 Urine Glucose (UA) NEGATIVE mg/dL (NEGATIVE) 10/08/17 18:36 Urine Ketones TRACE mg/dL (NEGATIVE) 10/08/17 18:36 Urine Blood NEGATIVE (NEGATIVE) 10/08/17 18:36 Urine Nitrate NEGATIVE (NEGATIVE) 10/08/17 18:36 Urine Bilirubin NEGATIVE (NEGATIVE) 10/08/17 18:36 Urine Urobilinogen 1.0 E.U./dL (0.2 - 1.0) 10/08/17 18:36 Ur Leukocyte Esterase NEGATIVE (NEGATIVE) 10/08/17 18:36 Urine RBC NONE SEEN /hpf (0-5) 10/08/17 18:36 Urine WBC NONE SEEN /hpf (0-5) 10/08/17 18:36 Ur Epithelial Cells NONE SEEN /lpf (FEW) 10/08/17 18:36 Urine Bacteria NONE SEEN /hpf (NONE SEEN) 10/08/17 18:36 - Physical Exam Vitals and I&O: Vital Signs Temp 98.1 F 10/16/17 05:52 Pulse 58 10/16/17 05:52 Resp 20 10/16/17 05:52 BP 101/57 10/16/17 08:27 Pulse Ox 98 10/16/17 05:52 Intake & Output 10/15/17 10/16/17 10/16/17 18:59 06:59 18:59 Intake Total 1200 490 Balance 1200 490 Intake: Oral 1200 490 Other: # Voids 1 Active Medications: Current Medications Acetaminophen (Tylenol) 650 mg PO Q4HR PRN PRN Reason: Mild Pain / Temp above 100 Stop: 12/07/17 21:09 Al Hydrox/Mg Hydrox/Simethicone (Maalox) 30 ml PO Q4HR PRN PRN Reason: GI DISTRESS Stop: 12/07/17 21:09 Amlodipine Besylate (Norvasc) 2.5 mg PO DAILY [facility] Stop: 12/09/17 08:59 Last Admin: 10/16/17 08:27 Dose: Not Given Docusate Sodium (Colace) 100 mg PO BID [facility] Stop: 12/08/17 16:59 Last Admin: 10/16/17 08:27 Dose: 100 mg Escitalopram Oxalate (Lexapro) 10 mg PO DAILY [facility]Y PRN Reason: Protocol Stop: 12/14/17 08:59 Last Admin: 10/16/17 08:27 Dose: 10 mg Lorazepam (Ativan) 0.5 mg PO Q4HR PRN; Protocol PRN Reason: Anxiety Stop: 11/07/17 21:09 Last Admin: 10/12/17 14:56 Dose: 0.5 mg Magnesium Hydroxide (Milk Of Magnesia) 30 ml PO DAILY PRN PRN Reason: Constipation Stop: 12/08/17 13:01 Zolpidem Tartrate (Ambien) 5 mg PO HS PRN PRN Reason: Insomnia Stop: 12/07/17 21:09 Last Admin: 10/15/17 21:07 Dose: 5 mg General: demented HEENT: NC/AT, PERRLA Neck: Supple, No JVD Lungs: CTAB Cardiovascular: RRR, Normal S1, Normal S2 Abdomen: soft, non-tender, globular, non-distended, positive bowel sound Extremities: excoriation Neurological: no change, disorganized - Procedures Procedures: Procedures Procedure Code Date EMERGENCY DEPT VISIT 45775 10/29/11 GROUP PSYCHOTHERAPY 59644 11/22/15 GROUP PSYCHOTHERAPY GZHZZZZ 11/22/15 GROUP PSYCHOTHERAPY 98489 08/21/15 GROUP PSYCHOTHERAPY GZHZZZZ 08/21/15 OTHER GROUP THERAPY 94.44 02/19/15 Internal Medicine Assmt/Plan - Assessment Assessment: Hypertension, asthma, benign prostatic hypertrophy, legal blindness, leukopenia, schizoaffective disorder, mild protein-calorie - Plan Plan: monitor blood pressure safety precautions continue current orders Nutritional Asmnt/Malnutr-PDOC - Dietary Evaluation Malnutrition Findings (Please click <Entered> for more info): Nutritional Asmnt/Malnutrition Start: 10/13/17 13: 15 Text: Status: Complete Freq: Document 10/13/17 13:15 [email or web address] (Rec: 10/13/17 13:18 [email or web address]) Nutritional Asmnt/Malnutrition Patient General Information Nutritional Screening Moderate Risk Diagnosis psychosis Pertinent Medical Hx/Surgical Hx HTN, asthma, BPH Subjective Information Pt very drowsy and confused. PO intake: 50-100%. Current Diet Order/ Nutrition Support TRICIA, Boost Plus TID Pertinent Medications colace, MOM Pertinent Labs 10/08 AST: 11, ALT: 5 Nutritional Hx/Data Height 5 ft 11 in Height (Calculated Centimeters) 180.3 Current Weight (lbs) 175 lb Weight (Calculated Kilograms) 79.4 Weight (Calculated Grams) 73004.7 [place] Body Weight 172 % [place] Body Weight 102 Body Mass Index (BMI) 24.4 Weight Status Approriate GI Symptoms GI Symptoms None Last BM 10/13 Difficult in: None Skin Integrity/Comment: intact, no edema Current %PO Fair (50-74%) Estimated Nutritional Goals BEE in Kcals: Using Current wt Calories/Kcals/Kg 25-30 Kcals Calculated 1479-2511 kcals Protein: Using Current wt Protein g/k Protein Calculated 80 g Fluid: ml 9375-6808 mL (1 mL/kcal) Nutritional Problem 1. Problem Problem n/a Etiology n/a Signs/Symptoms: n/a Malnutrition Alert Is there a minimum of two criteria No selected? Query Text:Check all the applicable criteria. A minimum of two criteria are recommended for diagnosis of either severe or non-severe malnutrition. Malnutrition Related to Morbid Obesity Malnutrition related to morbid obesity No Intervention/Recommendation Comments 1. Continue diet as ordered Expected Outcomes/Goals Expected Outcomes/Goals PO intake >50% monitor wt, labs, skin, PO intake
[2017-10-17] MEDS: Multivitamin w/ Minerals Tab PO SCH (09:34)
--- NOTE | 2017-10-17 13:59 | Internal Medicine Prog Note ---
Internal Medicine Subjective - Subjective Service Date: 10/17/17 Patient is:: asleep, interactive, in bed, agitated Per staff patient has:: no adverse event, no episodes of fall, poor appetite, tolerating meds Internal Medicine Objective - Results Result Diagrams: 10/08/17 18:24 10/08/17 18: Recent Labs: Laboratory Last Values WBC 4.5 Th/cmm (4.8-10.8) L 10/08/17: RBC 4.41 Mil/cmm (4.30-5.70) 10/08/17: Hgb 13.3 gm/dL (12-16) 10/08/17: Hct 38.8 % (41.0-60) L 10/08/17: MCV 88.1 fl (80-99) 10/08/17: MCH 30.2 pg (26.0-30.0) H 10/08/17 MCHC Differential 34.2 pg (28.0-36.0) 10/08/17: RDW 12.8 % (11.5-20.0) 10/08/17: Plt Count 184 Th/cmm (150-400) 10/08/17: MPV 7.4 fl 10/08/17: Neutrophils % 58.7 % (40.0-80.0) 10/08/17: Lymphocytes % 28.6 % (20.0-50.0) 10/08/17: Monocytes % 9.0 % (2.0-10.0) 10/08/17: Eosinophils % 2.1 % (0.0-5.0) 10/08/17: Basophils % 1.6 % (0.0-2.0) 10/08/17: Sodium 138 mEq/L (136-145) 10/08/17: Potassium 4.0 mEq/L (3.5-5.1) 10/08/17: Chloride 106 mEq/L (98-107) 10/08/17: Carbon Dioxide 28.0 mEq/L (21.0-31.0) 10/08/17 18: Anion Gap 8.0 (7.0-16.0) 10/08/17 18:24 BUN 15 mg/dL (7-25) 10/08/17 18:24 Creatinine 0.7 mg/dL (0.7-1.3) 10/08/17 18:24 Est GFR ( Amer) > 60.0 ml/min (>90) 10/08/17 18:24 Est GFR (Non-Af Amer) > 60.0 ml/min 10/08/17 18:24 BUN/Creatinine Ratio 21.4 10/08/17 18:24 Glucose 99 mg/dL (70-105) 10/08/17 18:24 Calcium 9.1 mg/dL (8.6-10.3) 10/08/17 18:24 Total Bilirubin 0.5 mg/dL (0.3-1.0) 10/08/17 18:24 AST 11 U/L (13-39) L 10/08/17 18:24 ALT 5 U/L (7-52) L 10/08/17 18:24 Alkaline Phosphatase 46 U/L (34-104) 10/08/17 18:24 Total Protein 6.4 gm/dL (6.0-8.3) 10/08/17 18:24 Albumin 3.7 gm/dL (4.2-5.5) L 10/08/17 18:24 Globulin 2.7 gm/dL 10/08/17 18:24 Albumin/Globulin Ratio 1.4 (1.0-1.8) 10/08/17 18:24 TSH 1.68 uIU/ml (0.34-5.60) 10/08/17 18:24 Urine Source RANDOM 10/08/17 18:36 Urine Color YELLOW 10/08/17 18:36 Urine Clarity CLEAR (CLEAR) 10/08/17 18:36 Urine pH 6.5 (4.6 - 8.0) 10/08/17 18:36 Ur Specific [place] 1.020 (1.005-1.030) 10/08/17 18:36 Urine Protein NEGATIVE mg/dL (NEGATIVE) 10/08/17 18:36 Urine Glucose (UA) NEGATIVE mg/dL (NEGATIVE) 10/08/17 18:36 Urine Ketones TRACE mg/dL (NEGATIVE) 10/08/17 18:36 Urine Blood NEGATIVE (NEGATIVE) 10/08/17 18:36 Urine Nitrate NEGATIVE (NEGATIVE) 10/08/17 18:36 Urine Bilirubin NEGATIVE (NEGATIVE) 10/08/17 18:36 Urine Urobilinogen 1.0 E.U./dL (0.2 - 1.0) 10/08/17 18:36 Ur Leukocyte Esterase NEGATIVE (NEGATIVE) 10/08/17 18:36 Urine RBC NONE SEEN /hpf (0-5) 10/08/17 18:36 Urine WBC NONE SEEN /hpf (0-5) 10/08/17 18:36 Ur Epithelial Cells NONE SEEN /lpf (FEW) 10/08/17 18:36 Urine Bacteria NONE SEEN /hpf (NONE SEEN) 10/08/17 18:36 - Physical Exam Vitals and I&O: Vital Signs Temp 98.3 F 10/16/17 20:33 Pulse 59 10/17/17 09:34 Resp 18 10/16/17 20:33 BP 110/60 10/17/17 09:34 Pulse Ox 97 10/16/17 20:33 Intake & Output 10/16/17 10/17/17 10/17/17 18:59 06:59 18:59 Intake Total 1200 240 Balance 1200 240 Intake: Oral 1200 240 Other: # Voids 2 1 Active Medications: Current Medications Acetaminophen (Tylenol) 650 mg PO Q4HR PRN PRN Reason: Mild Pain / Temp above 100 Stop: 12/07/17 21:09 Al Hydrox/Mg Hydrox/Simethicone (Maalox) 30 ml PO Q4HR PRN PRN Reason: GI DISTRESS Stop: 12/07/17 21:09 Amlodipine Besylate (Norvasc) 2.5 mg PO DAILY [facility] Stop: 12/09/17 08:59 Last Admin: 10/17/17 09:34 Dose: Not Given Docusate Sodium (Colace) 100 mg PO BID [facility] Stop: 12/08/17 16:59 Last Admin: 10/17/17 09:34 Dose: 100 mg Escitalopram Oxalate (Lexapro) 10 mg PO DAILY [facility] PRN Reason: Protocol Stop: 12/14/17 08:59 Last Admin: 10/17/17 09:34 Dose: 10 mg Lorazepam (Ativan) 0.5 mg PO Q4HR PRN; Protocol PRN Reason: Anxiety Stop: 11/07/17 21:09 Last Admin: 10/17/17 13:43 Dose: 0.5 mg Magnesium Hydroxide (Milk Of Magnesia) 30 ml PO DAILY PRN PRN Reason: Constipation Stop: 12/08/17 13:01 Zolpidem Tartrate (Ambien) 5 mg PO HS PRN PRN Reason: Insomnia Stop: 12/07/17 21:09 Last Admin: 10/16/17 22:17 Dose: 5 mg General: demented HEENT: NC/AT, PERRLA Neck: Supple, No JVD Lungs: CTAB Cardiovascular: RRR, Normal S1, Normal S2 Abdomen: soft, non-tender, globular, non-distended, positive bowel sound Extremities: excoriation Neurological: no change, disorganized - Procedures Procedures: Procedures Procedure Code Date EMERGENCY DEPT VISIT 38897 10/29/11 GROUP PSYCHOTHERAPY 37194 11/22/15 GROUP PSYCHOTHERAPY GZHZZZZ 11/22/15 GROUP PSYCHOTHERAPY 12370 08/21/15 GROUP PSYCHOTHERAPY GZHZZZZ 08/21/15 OTHER GROUP THERAPY 94.44 02/19/15 Internal Medicine Assmt/Plan - Assessment Assessment: Hypertension, asthma, benign prostatic hypertrophy, legal blindness, leukopenia, schizoaffective disorder, mild protein-calorie - Plan Plan: monitor blood pressure safety precautions continue current orders Nutritional Asmnt/Malnutr-PDOC - Dietary Evaluation Malnutrition Findings (Please click <Entered> for more info): Nutritional Asmnt/Malnutrition Start: 10/13/17 13: 15 Text: Status: Complete Freq: Document 10/13/17 13:15 [email or web address] (Rec: 10/13/17 13:18 [email or web address]) Nutritional Asmnt/Malnutrition Patient General Information Nutritional Screening Moderate Risk Diagnosis psychosis Pertinent Medical Hx/Surgical Hx HTN, asthma, BPH Subjective Information Pt very drowsy and confused. PO intake: 50-100%. Current Diet Order/ Nutrition Support TRICIA, Boost Plus TID Pertinent Medications colace, MOM Pertinent Labs 10/08 AST: 11, ALT: 5 Nutritional Hx/Data Height 5 ft 11 in Height (Calculated Centimeters) 180.3 Current Weight (lbs) 175 lb Weight (Calculated Kilograms) 79.4 Weight (Calculated Grams) 20007.7 [place] Body Weight 172 % [place] Body Weight 102 Body Mass Index (BMI) 24.4 Weight Status Approriate GI Symptoms GI Symptoms None Last BM 10/13 Difficult in: None Skin Integrity/Comment: intact, no edema Current %PO Fair (50-74%) Estimated Nutritional Goals BEE in Kcals: Using Current wt Calories/Kcals/Kg 25-30 Kcals Calculated 2590-4145 kcals Protein: Using Current wt Protein g/k Protein Calculated 80 g Fluid: ml 7067-7938 mL (1 mL/kcal) Nutritional Problem 1. Problem Problem n/a Etiology n/a Signs/Symptoms: n/a Malnutrition Alert Is there a minimum of two criteria No selected? Query Text:Check all the applicable criteria. A minimum of two criteria are recommended for diagnosis of either severe or non-severe malnutrition. Malnutrition Related to Morbid Obesity Malnutrition related to morbid obesity No Intervention/Recommendation Comments 1. Continue diet as ordered Expected Outcomes/Goals Expected Outcomes/Goals PO intake >50% monitor wt, labs, skin, PO intake
--- NOTE | 2017-10-17 17:43 | Progress Notes ---
DATE: SUBJECTIVE: The patient was seen, chart reviewed and discussed with staff. The patient continues to be extremely depressed, endorsing feelings of hopelessness, helplessness with residual passive suicidal ideations. He otherwise has been compliant with his medications, denying any undue side effects. PLAN: The patient continues to be depressed and suicidal. It was felt that he will require inpatient care for stabilization and treatment. We will monitor patient on a daily basis for response to medications and titrate medications as needed. [facility]# [id number]
--- NOTE | 2017-10-17 21:35 | Progress Notes ---
DATE: SUBJECTIVE: The patient seen, chart reviewed, and discussed with staff. The patient continues to be very depressed, endorsing feelings of hopelessness and helplessness. He has, however, been compliant with his medications, denying any undue side effects. Continues to be isolative, but displaying good appetite. PLAN: The patient continues to be very depressed and hopeless. It was felt that he could benefit from continued inpatient care. We will monitor patient on a daily basis for response to medications and titrate as needed. [facility]# [id number]
[2017-10-18] MEDS: Multivitamin w/ Minerals Tab PO SCH (08:55)
--- NOTE | 2017-10-18 11:55 | Internal Medicine Prog Note ---
Internal Medicine Subjective - Subjective Service Date: 10/18/17 Patient is:: asleep, interactive, in bed, agitated Per staff patient has:: no adverse event, no episodes of fall, poor appetite, tolerating meds Internal Medicine Objective - Results Result Diagrams: 10/08/17 18:24 10/08/17 18: Recent Labs: Laboratory Last Values WBC 4.5 Th/cmm (4.8-10.8) L 10/08/17: RBC 4.41 Mil/cmm (4.30-5.70) 10/08/17: Hgb 13.3 gm/dL (12-16) 10/08/17: Hct 38.8 % (41.0-60) L 10/08/17: MCV 88.1 fl (80-99) 10/08/17: MCH 30.2 pg (26.0-30.0) H 10/08/17: MCHC Differential 34.2 pg (28.0-36.0) 10/08/17: RDW 12.8 % (11.5-20.0) 10/08/17: Plt Count 184 Th/cmm (150-400) 10/08/17: MPV 7.4 fl 10/08/17: Neutrophils % 58.7 % (40.0-80.0) 10/08/17: Lymphocytes % 28.6 % (20.0-50.0) 10/08/17: Monocytes % 9.0 % (2.0-10.0) 10/08/17: Eosinophils % 2.1 % (0.0-5.0) 10/08/17: Basophils % 1.6 % (0.0-2.0) 10/08/17 18: Sodium 138 mEq/L (136-145) 10/08/17: Potassium 4.0 mEq/L (3.5-5.1) 10/08/17: Chloride 106 mEq/L (98-107) 10/08/17: Carbon Dioxide 28.0 mEq/L (21.0-31.0) 10/08/17 18: Anion Gap 8.0 (7.0-16.0) 10/08/17 18:24 BUN 15 mg/dL (7-25) 10/08/17 18:24 Creatinine 0.7 mg/dL (0.7-1.3) 10/08/17 18:24 Est GFR ( Amer) > 60.0 ml/min (>90) 10/08/17 18:24 Est GFR (Non-Af Amer) > 60.0 ml/min 10/08/17 18:24 BUN/Creatinine Ratio 21.4 10/08/17 18:24 Glucose 99 mg/dL (70-105) 10/08/17 18:24 Calcium 9.1 mg/dL (8.6-10.3) 10/08/17 18:24 Total Bilirubin 0.5 mg/dL (0.3-1.0) 10/08/17 18:24 AST 11 U/L (13-39) L 10/08/17 18:24 ALT 5 U/L (7-52) L 10/08/17 18:24 Alkaline Phosphatase 46 U/L (34-104) 10/08/17 18:24 Total Protein 6.4 gm/dL (6.0-8.3) 10/08/17 18:24 Albumin 3.7 gm/dL (4.2-5.5) L 10/08/17 18:24 Globulin 2.7 gm/dL 10/08/17 18:24 Albumin/Globulin Ratio 1.4 (1.0-1.8) 10/08/17 18:24 TSH 1.68 uIU/ml (0.34-5.60) 10/08/17 18:24 Urine Source RANDOM 10/08/17 18:36 Urine Color YELLOW 10/08/17 18:36 Urine Clarity CLEAR (CLEAR) 10/08/17 18:36 Urine pH 6.5 (4.6 - 8.0) 10/08/17 18:36 Ur Specific [place] 1.020 (1.005-1.030) 10/08/17 18:36 Urine Protein NEGATIVE mg/dL (NEGATIVE) 10/08/17 18:36 Urine Glucose (UA) NEGATIVE mg/dL (NEGATIVE) 10/08/17 18:36 Urine Ketones TRACE mg/dL (NEGATIVE) 10/08/17 18:36 Urine Blood NEGATIVE (NEGATIVE) 10/08/17 18:36 Urine Nitrate NEGATIVE (NEGATIVE) 10/08/17 18:36 Urine Bilirubin NEGATIVE (NEGATIVE) 10/08/17 18:36 Urine Urobilinogen 1.0 E.U./dL (0.2 - 1.0) 10/08/17 18:36 Ur Leukocyte Esterase NEGATIVE (NEGATIVE) 10/08/17 18:36 Urine RBC NONE SEEN /hpf (0-5) 10/08/17 18:36 Urine WBC NONE SEEN /hpf (0-5) 10/08/17 18:36 Ur Epithelial Cells NONE SEEN /lpf (FEW) 10/08/17 18:36 Urine Bacteria NONE SEEN /hpf (NONE SEEN) 10/08/17 18:36 - Physical Exam Vitals and I&O: Vital Signs Temp 98 F 10/18/17 06:30 Pulse 59 10/18/17 06:30 Resp 18 10/18/17 06:30 BP 93/62 10/18/17 06:30 Pulse Ox 97 10/18/17 06:30 Intake & Output 10/17/17 10/18/17 10/18/17 18:59 06:59 18:59 Intake Total 1200 240 Balance 1200 240 Intake: Oral 1200 240 Other: # Voids 2 1 Active Medications: Current Medications Acetaminophen (Tylenol) 650 mg PO Q4HR PRN PRN Reason: Mild Pain / Temp above 100 Stop: 12/07/17 21:09 Al Hydrox/Mg Hydrox/Simethicone (Maalox) 30 ml PO Q4HR PRN PRN Reason: GI DISTRESS Stop: 12/07/17 21:09 Amlodipine Besylate (Norvasc) 2.5 mg PO DAILY [facility] Stop: 12/09/17 08:59 Last Admin: 10/18/17 08:55 Dose: Not Given Docusate Sodium (Colace) 100 mg PO BID [facility] Stop: 12/08/17 16:59 Last Admin: 10/18/17 08:55 Dose: 100 mg Escitalopram Oxalate (Lexapro) 10 mg PO DAILY [facility] PRN Reason: Protocol Stop: 12/14/17 08:59 Last Admin: 10/18/17 08:55 Dose: 10 mg Lorazepam (Ativan) 0.5 mg PO Q4HR PRN; Protocol PRN Reason: Anxiety Stop: 11/07/17 21:09 Last Admin: 10/17/17 13:43 Dose: 0.5 mg Magnesium Hydroxide (Milk Of Magnesia) 30 ml PO DAILY PRN PRN Reason: Constipation Stop: 12/08/17 13:01 Zolpidem Tartrate (Ambien) 5 mg PO HS PRN PRN Reason: Insomnia Stop: 12/07/17 21:09 Last Admin: 10/17/17 20:57 Dose: 5 mg General: demented HEENT: NC/AT, PERRLA Neck: Supple, No JVD Lungs: CTAB Cardiovascular: RRR, Normal S1, Normal S2 Abdomen: soft, non-tender, globular, non-distended, positive bowel sound Extremities: excoriation Neurological: no change, disorganized - Procedures Procedures: Procedures Procedure Code Date EMERGENCY DEPT VISIT 42774 10/29/11 GROUP PSYCHOTHERAPY 69015 11/22/15 GROUP PSYCHOTHERAPY GZHZZZZ 11/22/15 GROUP PSYCHOTHERAPY 78409 08/21/15 GROUP PSYCHOTHERAPY GZHZZZZ 08/21/15 OTHER GROUP THERAPY 94.44 02/19/15 Internal Medicine Assmt/Plan - Assessment Assessment: Hypertension, asthma, benign prostatic hypertrophy, legal blindness, leukopenia, schizoaffective disorder, mild protein-calorie - Plan Plan: monitor blood pressure safety precautions continue current orders Nutritional Asmnt/Malnutr-PDOC - Dietary Evaluation Malnutrition Findings (Please click <Entered> for more info): Nutritional Asmnt/Malnutrition Start: 10/13/17 13: 15 Text: Status: Complete Freq: Document 10/13/17 13:15 [email or web address] (Rec: 10/13/17 13:18 [email or web address]) Nutritional Asmnt/Malnutrition Patient General Information Nutritional Screening Moderate Risk Diagnosis psychosis Pertinent Medical Hx/Surgical Hx HTN, asthma, BPH Subjective Information Pt very drowsy and confused. PO intake: 50-100%. Current Diet Order/ Nutrition Support TRICIA, Boost Plus TID Pertinent Medications colace, MOM Pertinent Labs 10/08 AST: 11, ALT: 5 Nutritional Hx/Data Height 5 ft 11 in Height (Calculated Centimeters) 180.3 Current Weight (lbs) 175 lb Weight (Calculated Kilograms) 79.4 Weight (Calculated Grams) 65950.7 [place] Body Weight 172 % [place] Body Weight 102 Body Mass Index (BMI) 24.4 Weight Status Approriate GI Symptoms GI Symptoms None Last BM 10/13 Difficult in: None Skin Integrity/Comment: intact, no edema Current %PO Fair (50-74%) Estimated Nutritional Goals BEE in Kcals: Using Current wt Calories/Kcals/Kg 25-30 Kcals Calculated 3100-9421 kcals Protein: Using Current wt Protein g/k Protein Calculated 80 g Fluid: ml 0253-8204 mL (1 mL/kcal) Nutritional Problem 1. Problem Problem n/a Etiology n/a Signs/Symptoms: n/a Malnutrition Alert Is there a minimum of two criteria No selected? Query Text:Check all the applicable criteria. A minimum of two criteria are recommended for diagnosis of either severe or non-severe malnutrition. Malnutrition Related to Morbid Obesity Malnutrition related to morbid obesity No Intervention/Recommendation Comments 1. Continue diet as ordered Expected Outcomes/Goals Expected Outcomes/Goals PO intake >50% monitor wt, labs, skin, PO intake
[2017-10-19] MEDS: Multivitamin w/ Minerals Tab PO SCH (08:25)
--- NOTE | 2017-10-19 09:19 | Progress Notes ---
DATE: Case was discussed with staff and the patient's records. The patient is a 62-year-old male who is a well-known case to me as I have seen him at [place] on 10/08/2017 and sent him here after he told me he wanted to be euthanized. He has been depressed. He is legally blind. He is fearful that he will lose his SSI, feeling hopeless, despairing, and not sleeping well. The patient is with multiple prior hospitalizations here for similar reason that may lead to severe hallucination. The patient was seen by Dr. Bedoya in the past 9 days and he has been on Lexapro 10 mg daily and multivitamin. The patient reports that he is not sleeping well. We will be reinitiating his Seroquel, which he used to be on before that help him with his depression as well as sleep as well as his psychotic symptoms. I will be initiating him at 75 mg at bedtime and so far no side effects with the current medication. He denies having any command hallucination, but he stays in bed, internally preoccupied. Unable to make safe plan for his self-care and will continue to work the patient in group therapy, milieu therapy, and adjust medications as needed. JOB# [id number]
--- NOTE | 2017-10-19 13:57 | Internal Medicine Prog Note ---
Internal Medicine Subjective - Subjective Service Date: 10/19/17 Patient is:: asleep, interactive, in bed, agitated Per staff patient has:: no adverse event, no episodes of fall, poor appetite, tolerating meds Internal Medicine Objective - Results Result Diagrams: 10/08/17 18:24 10/08/17 18: Recent Labs: Laboratory Last Values WBC 4.5 Th/cmm (4.8-10.8) L 10/08/17: RBC 4.41 Mil/cmm (4.30-5.70) 10/08/17: Hgb 13.3 gm/dL (12-16) 10/08/17: Hct 38.8 % (41.0-60) L 10/08/17: MCV 88.1 fl (80-99) 10/08/17: MCH 30.2 pg (26.0-30.0) H 10/08/17: MCHC Differential 34.2 pg (28.0-36.0) 10/08/17: RDW 12.8 % (11.5-20.0) 10/08/17: Plt Count 184 Th/cmm (150-400) 10/08/17: MPV 7.4 fl 10/08/17: Neutrophils % 58.7 % (40.0-80.0) 10/08/17: Lymphocytes % 28.6 % (20.0-50.0) 10/08/17: Monocytes % 9.0 % (2.0-10.0) 10/08/17: Eosinophils % 2.1 % (0.0-5.0) 10/08/17: Basophils % 1.6 % (0.0-2.0) 10/08/17 18: Sodium 138 mEq/L (136-145) 10/08/17: Potassium 4.0 mEq/L (3.5-5.1) 10/08/17: Chloride 106 mEq/L (98-107) 10/08/17: Carbon Dioxide 28.0 mEq/L (21.0-31.0) 10/08/17 18: Anion Gap 8.0 (7.0-16.0) 10/08/17 18:24 BUN 15 mg/dL (7-25) 10/08/17 18:24 Creatinine 0.7 mg/dL (0.7-1.3) 10/08/17 18:24 Est GFR ( Amer) > 60.0 ml/min (>90) 10/08/17 18:24 Est GFR (Non-Af Amer) > 60.0 ml/min 10/08/17 18:24 BUN/Creatinine Ratio 21.4 10/08/17 18:24 Glucose 99 mg/dL (70-105) 10/08/17 18:24 Calcium 9.1 mg/dL (8.6-10.3) 10/08/17 18:24 Total Bilirubin 0.5 mg/dL (0.3-1.0) 10/08/17 18:24 AST 11 U/L (13-39) L 10/08/17 18:24 ALT 5 U/L (7-52) L 10/08/17 18:24 Alkaline Phosphatase 46 U/L (34-104) 10/08/17 18:24 Total Protein 6.4 gm/dL (6.0-8.3) 10/08/17 18:24 Albumin 3.7 gm/dL (4.2-5.5) L 10/08/17 18:24 Globulin 2.7 gm/dL 10/08/17 18:24 Albumin/Globulin Ratio 1.4 (1.0-1.8) 10/08/17 18:24 TSH 1.68 uIU/ml (0.34-5.60) 10/08/17 18:24 Urine Source RANDOM 10/08/17 18:36 Urine Color YELLOW 10/08/17 18:36 Urine Clarity CLEAR (CLEAR) 10/08/17 18:36 Urine pH 6.5 (4.6 - 8.0) 10/08/17 18:36 Ur Specific [place] 1.020 (1.005-1.030) 10/08/17 18:36 Urine Protein NEGATIVE mg/dL (NEGATIVE) 10/08/17 18:36 Urine Glucose (UA) NEGATIVE mg/dL (NEGATIVE) 10/08/17 18:36 Urine Ketones TRACE mg/dL (NEGATIVE) 10/08/17 18:36 Urine Blood NEGATIVE (NEGATIVE) 10/08/17 18:36 Urine Nitrate NEGATIVE (NEGATIVE) 10/08/17 18:36 Urine Bilirubin NEGATIVE (NEGATIVE) 10/08/17 18:36 Urine Urobilinogen 1.0 E.U./dL (0.2 - 1.0) 10/08/17 18:36 Ur Leukocyte Esterase NEGATIVE (NEGATIVE) 10/08/17 18:36 Urine RBC NONE SEEN /hpf (0-5) 10/08/17 18:36 Urine WBC NONE SEEN /hpf (0-5) 10/08/17 18:36 Ur Epithelial Cells NONE SEEN /lpf (FEW) 10/08/17 18:36 Urine Bacteria NONE SEEN /hpf (NONE SEEN) 10/08/17 18:36 - Physical Exam Vitals and I&O: Vital Signs Temp 98 F 10/18/17 06:30 Pulse 54 10/19/17 08:24 Resp 18 10/19/17 08:00 BP 106/61 10/19/17 08:24 Pulse Ox 97 10/18/17 06:30 Active Medications: Current Medications Acetaminophen (Tylenol) 650 mg PO Q4HR PRN PRN Reason: Mild Pain / Temp above 100 Stop: 12/07/17 21:09 Al Hydrox/Mg Hydrox/Simethicone (Maalox) 30 ml PO Q4HR PRN PRN Reason: GI DISTRESS Stop: 12/07/17 21:09 Amlodipine Besylate (Norvasc) 2.5 mg PO DAILY [facility] Stop: 12/09/17 08:59 Last Admin: 10/19/17 08:24 Dose: Not Given Docusate Sodium (Colace) 100 mg PO BID [facility] Stop: 12/08/17 16:59 Last Admin: 10/19/17 08:25 Dose: 100 mg Escitalopram Oxalate (Lexapro) 20 mg PO DAILY [facility] PRN Reason: Protocol Stop: 12/18/17 12:08 Lorazepam (Ativan) 0.5 mg PO Q4HR PRN; Protocol PRN Reason: Anxiety Stop: 11/07/17 21:09 Last Admin: 10/17/17 13:43 Dose: 0.5 mg Magnesium Hydroxide (Milk Of Magnesia) 30 ml PO DAILY PRN PRN Reason: Constipation Stop: 12/08/17 13:01 Quetiapine Fumarate (Seroquel) 75 mg PO HS [facility] PRN Reason: Protocol Stop: 12/17/17 20:59 Last Admin: 10/18/17 21:35 Dose: 75 mg Zolpidem Tartrate (Ambien) 5 mg PO HS PRN PRN Reason: Insomnia Stop: 12/07/17 21:09 Last Admin: 10/18/17 21:35 Dose: 5 mg General: demented HEENT: NC/AT, PERRLA Neck: Supple, No JVD Lungs: CTAB Cardiovascular: RRR, Normal S1, Normal S2 Abdomen: soft, non-tender, globular, non-distended, positive bowel sound Extremities: excoriation Neurological: no change, disorganized - Procedures Procedures: Procedures Procedure Code Date EMERGENCY DEPT VISIT 33895 10/29/11 GROUP PSYCHOTHERAPY 72795 11/22/15 GROUP PSYCHOTHERAPY GZHZZZZ 11/22/15 GROUP PSYCHOTHERAPY 61802 08/21/15 GROUP PSYCHOTHERAPY GZHZZZZ 08/21/15 OTHER GROUP THERAPY 94.44 02/19/15 Internal Medicine Assmt/Plan - Assessment Assessment: Hypertension, asthma, benign prostatic hypertrophy, legal blindness, leukopenia, schizoaffective disorder, mild protein-calorie - Plan Plan: monitor blood pressure safety precautions continue current orders Nutritional Asmnt/Malnutr-PDOC - Dietary Evaluation Malnutrition Findings (Please click <Entered> for more info): Nutritional Asmnt/Malnutrition Start: 10/13/17 13: 15 Text: Status: Complete Freq: Document 10/13/17 13:15 [email or web address] (Rec: 10/13/17 13:18 [email or web address]) Nutritional Asmnt/Malnutrition Patient General Information Nutritional Screening Moderate Risk Diagnosis psychosis Pertinent Medical Hx/Surgical Hx HTN, asthma, BPH Subjective Information Pt very drowsy and confused. PO intake: 50-100%. Current Diet Order/ Nutrition Support TRICIA, Boost Plus TID Pertinent Medications colace, MOM Pertinent Labs 10/08 AST: 11, ALT: 5 Nutritional Hx/Data Height 5 ft 11 in Height (Calculated Centimeters) 180.3 Current Weight (lbs) 175 lb Weight (Calculated Kilograms) 79.4 Weight (Calculated Grams) 16645.7 [place] Body Weight 172 % [place] Body Weight 102 Body Mass Index (BMI) 24.4 Weight Status Approriate GI Symptoms GI Symptoms None Last BM 10/13 Difficult in: None Skin Integrity/Comment: intact, no edema Current %PO Fair (50-74%) Estimated Nutritional Goals BEE in Kcals: Using Current wt Calories/Kcals/Kg 25-30 Kcals Calculated 5401-1589 kcals Protein: Using Current wt Protein g/k Protein Calculated 80 g Fluid: ml 5140-9217 mL (1 mL/kcal) Nutritional Problem 1. Problem Problem n/a Etiology n/a Signs/Symptoms: n/a Malnutrition Alert Is there a minimum of two criteria No selected? Query Text:Check all the applicable criteria. A minimum of two criteria are recommended for diagnosis of either severe or non-severe malnutrition. Malnutrition Related to Morbid Obesity Malnutrition related to morbid obesity No Intervention/Recommendation Comments 1. Continue diet as ordered Expected Outcomes/Goals Expected Outcomes/Goals PO intake >50% monitor wt, labs, skin, PO intake
--- NOTE | 2017-10-20 01:51 | Progress Notes ---
DATE: 10/19/2017 SUBJECTIVE: Case was discussed with staff of the patient, reviewed records. The patient has been isolating himself. He continues to be depressed but he no longer asking to be euthanized. However, he is still depressed, isolating himself. He stays in bed most of the time. He reported not sleeping well. I initiated the Seroquel yesterday 75 mg a day and I will be increasing the Lexapro dose to 20 mg a day and so far no side effects with the medication, no sedation, no nausea, no extrapyramidal symptoms. Still unpredictable, impulsive, needing redirection and he is not acting anyway self-destructive. His lab work shows CBC with low white cell count 4.5, low hematocrit 38.8, low MCH at 30.2, but red cells and hemoglobin within normal range. The rest within normal range. Chemistry panel shows low AST at 11, ALT at 5 and low albumin 3.7. The rest within normal range. Urinalysis within normal range. We will continue outpatient group therapy, milieu therapy, and adjust the medication as needed. JOB# [id number]
[2017-10-20] MEDS: Multivitamin w/ Minerals Tab PO SCH (09:47)
--- NOTE | 2017-10-20 13:55 | Internal Medicine Prog Note ---
Internal Medicine Subjective - Subjective Service Date: 10/20/17 Patient is:: asleep, interactive, in bed, agitated Per staff patient has:: no adverse event, no episodes of fall, poor appetite, tolerating meds Internal Medicine Objective - Results Result Diagrams: 10/08/17 18:24 10/08/17 18: Recent Labs: Laboratory Last Values WBC 4.5 Th/cmm (4.8-10.8) L 10/08/17: RBC 4.41 Mil/cmm (4.30-5.70) 10/08/17: Hgb 13.3 gm/dL (12-16) 10/08/17: Hct 38.8 % (41.0-60) L 10/08/17: MCV 88.1 fl (80-99) 10/08/17: MCH 30.2 pg (26.0-30.0) H 10/08/17 MCHC Differential 34.2 pg (28.0-36.0) 10/08/17: RDW 12.8 % (11.5-20.0) 10/08/17: Plt Count 184 Th/cmm (150-400) 10/08/17: MPV 7.4 fl 10/08/17: Neutrophils % 58.7 % (40.0-80.0) 10/08/17: Lymphocytes % 28.6 % (20.0-50.0) 10/08/17: Monocytes % 9.0 % (2.0-10.0) 10/08/17: Eosinophils % 2.1 % (0.0-5.0) 10/08/17: Basophils % 1.6 % (0.0-2.0) 10/08/17 18: Sodium 138 mEq/L (136-145) 10/08/17: Potassium 4.0 mEq/L (3.5-5.1) 10/08/17: Chloride 106 mEq/L (98-107) 10/08/17: Carbon Dioxide 28.0 mEq/L (21.0-31.0) 10/08/17 18: Anion Gap 8.0 (7.0-16.0) 10/08/17 18:24 BUN 15 mg/dL (7-25) 10/08/17 18:24 Creatinine 0.7 mg/dL (0.7-1.3) 10/08/17 18:24 Est GFR ( Amer) > 60.0 ml/min (>90) 10/08/17 18:24 Est GFR (Non-Af Amer) > 60.0 ml/min 10/08/17 18:24 BUN/Creatinine Ratio 21.4 10/08/17 18:24 Glucose 99 mg/dL (70-105) 10/08/17 18:24 Calcium 9.1 mg/dL (8.6-10.3) 10/08/17 18:24 Total Bilirubin 0.5 mg/dL (0.3-1.0) 10/08/17 18:24 AST 11 U/L (13-39) L 10/08/17 18:24 ALT 5 U/L (7-52) L 10/08/17 18:24 Alkaline Phosphatase 46 U/L (34-104) 10/08/17 18:24 Total Protein 6.4 gm/dL (6.0-8.3) 10/08/17 18:24 Albumin 3.7 gm/dL (4.2-5.5) L 10/08/17 18:24 Globulin 2.7 gm/dL 10/08/17 18:24 Albumin/Globulin Ratio 1.4 (1.0-1.8) 10/08/17 18:24 TSH 1.68 uIU/ml (0.34-5.60) 10/08/17 18:24 Urine Source RANDOM 10/08/17 18:36 Urine Color YELLOW 10/08/17 18:36 Urine Clarity CLEAR (CLEAR) 10/08/17 18:36 Urine pH 6.5 (4.6 - 8.0) 10/08/17 18:36 Ur Specific [place] 1.020 (1.005-1.030) 10/08/17 18:36 Urine Protein NEGATIVE mg/dL (NEGATIVE) 10/08/17 18:36 Urine Glucose (UA) NEGATIVE mg/dL (NEGATIVE) 10/08/17 18:36 Urine Ketones TRACE mg/dL (NEGATIVE) 10/08/17 18:36 Urine Blood NEGATIVE (NEGATIVE) 10/08/17 18:36 Urine Nitrate NEGATIVE (NEGATIVE) 10/08/17 18:36 Urine Bilirubin NEGATIVE (NEGATIVE) 10/08/17 18:36 Urine Urobilinogen 1.0 E.U./dL (0.2 - 1.0) 10/08/17 18:36 Ur Leukocyte Esterase NEGATIVE (NEGATIVE) 10/08/17 18:36 Urine RBC NONE SEEN /hpf (0-5) 10/08/17 18:36 Urine WBC NONE SEEN /hpf (0-5) 10/08/17 18:36 Ur Epithelial Cells NONE SEEN /lpf (FEW) 10/08/17 18:36 Urine Bacteria NONE SEEN /hpf (NONE SEEN) 10/08/17 18:36 - Physical Exam Vitals and I&O: Vital Signs Temp 98.0 F 10/20/17 07:18 Pulse 84 10/20/17 09:46 Resp 19 10/20/17 07:18 BP 99/61 10/20/17 09:46 Pulse Ox 96 10/20/17 07:18 Intake & Output 10/19/17 10/20/17 10/20/17 18:59 06:59 18:59 Intake Total 800 250 60 Balance 800 250 60 Intake: Oral 800 250 60 Other: # Voids 400 2 2 # Bowel Movements 0 0 0 Stool Characteristics Soft Active Medications: Current Medications Acetaminophen (Tylenol) 650 mg PO Q4HR PRN PRN Reason: Mild Pain / Temp above 100 Stop: 12/07/17 21:09 Al Hydrox/Mg Hydrox/Simethicone (Maalox) 30 ml PO Q4HR PRN PRN Reason: GI DISTRESS Stop: 12/07/17 21:09 Amlodipine Besylate (Norvasc) 2.5 mg PO DAILY [facility] Stop: 12/09/17 08:59 Last Admin: 10/20/17 09:46 Dose: Not Given Docusate Sodium (Colace) 100 mg PO BID [facility] Stop: 12/08/17 16:59 Last Admin: 10/20/17 09:47 Dose: 100 mg Escitalopram Oxalate (Lexapro) 20 mg PO DAILY [facility] PRN Reason: Protocol Stop: 12/18/17 12:08 Last Admin: 10/20/17 09:47 Dose: 20 mg Lorazepam (Ativan) 0.5 mg PO Q4HR PRN; Protocol PRN Reason: Anxiety Stop: 11/07/17 21:09 Last Admin: 10/17/17 13:43 Dose: 0.5 mg Magnesium Hydroxide (Milk Of Magnesia) 30 ml PO DAILY PRN PRN Reason: Constipation Stop: 12/08/17 13:01 Quetiapine Fumarate (Seroquel) 100 mg PO HS [facility] PRN Reason: Protocol Stop: 12/19/17 08:12 Zolpidem Tartrate (Ambien) 5 mg PO HS PRN PRN Reason: Insomnia Stop: 12/07/17 21:09 Last Admin: 10/19/17 21:03 Dose: 5 mg General: demented HEENT: NC/AT, PERRLA Neck: Supple, No JVD Lungs: CTAB Cardiovascular: RRR, Normal S1, Normal S2 Abdomen: soft, non-tender, globular, non-distended, positive bowel sound Extremities: excoriation Neurological: no change, disorganized - Procedures Procedures: Procedures Procedure Code Date EMERGENCY DEPT VISIT 63490 10/29/11 GROUP PSYCHOTHERAPY 29590 11/22/15 GROUP PSYCHOTHERAPY GZHZZZZ 11/22/15 GROUP PSYCHOTHERAPY 87372 08/21/15 GROUP PSYCHOTHERAPY GZHZZZZ 08/21/15 OTHER GROUP THERAPY 94.44 02/19/15 Internal Medicine Assmt/Plan - Assessment Assessment: Hypertension, asthma, benign prostatic hypertrophy, legal blindness, leukopenia, schizoaffective disorder, mild protein-calorie - Plan Plan: monitor blood pressure safety precautions continue current orders Nutritional Asmnt/Malnutr-PDOC - Dietary Evaluation Malnutrition Findings (Please click <Entered> for more info): Nutritional Asmnt/Malnutrition Start: 10/13/17 13: 15 Text: Status: Complete Freq: Document 10/13/17 13:15 [email or web address] (Rec: 10/13/17 13:18 [email or web address]) Nutritional Asmnt/Malnutrition Patient General Information Nutritional Screening Moderate Risk Diagnosis psychosis Pertinent Medical Hx/Surgical Hx HTN, asthma, BPH Subjective Information Pt very drowsy and confused. PO intake: 50-100%. Current Diet Order/ Nutrition Support TRICIA, Boost Plus TID Pertinent Medications colace, MOM Pertinent Labs 10/08 AST: 11, ALT: 5 Nutritional Hx/Data Height 5 ft 11 in Height (Calculated Centimeters) 180.3 Current Weight (lbs) 175 lb Weight (Calculated Kilograms) 79.4 Weight (Calculated Grams) 03920.7 [place] Body Weight 172 % [place] Body Weight 102 Body Mass Index (BMI) 24.4 Weight Status Approriate GI Symptoms GI Symptoms None Last BM 10/13 Difficult in: None Skin Integrity/Comment: intact, no edema Current %PO Fair (50-74%) Estimated Nutritional Goals BEE in Kcals: Using Current wt Calories/Kcals/Kg 25-30 Kcals Calculated 3521-8931 kcals Protein: Using Current wt Protein g/k Protein Calculated 80 g Fluid: ml 2345-5302 mL (1 mL/kcal) Nutritional Problem 1. Problem Problem n/a Etiology n/a Signs/Symptoms: n/a Malnutrition Alert Is there a minimum of two criteria No selected? Query Text:Check all the applicable criteria. A minimum of two criteria are recommended for diagnosis of either severe or non-severe malnutrition. Malnutrition Related to Morbid Obesity Malnutrition related to morbid obesity No Intervention/Recommendation Comments 1. Continue diet as ordered Expected Outcomes/Goals Expected Outcomes/Goals PO intake >50% monitor wt, labs, skin, PO intake
--- NOTE | 2017-10-20 23:15 | Progress Notes ---
DATE: 10/20/2017 Case was discussed with staff of the patient. The patient continues to be depressed, isolating himself. Continues to have poor motivation. Continues to have passive suicidal ideation. He has been compliant with the medication with no side effects, no sedation, no nausea, no extrapyramidal symptoms. I will be increasing his Seroquel dose to 100 mg at bedtime and I did increase Lexapro to 20 mg a day and so far no side effects, no sedation, no nausea, no extrapyramidal symptoms. We will continue to work with the patient in group therapy, milieu therapy, and adjust the medication as needed. JOB# [id number]
[2017-10-21] MEDS: Multivitamin w/ Minerals Tab PO SCH (09:43)
--- NOTE | 2017-10-21 15:22 | Internal Medicine Prog Note ---
Internal Medicine Subjective - Subjective Service Date: 10/21/17 Patient is:: asleep, interactive, in bed, agitated Per staff patient has:: no adverse event, no episodes of fall, poor appetite, tolerating meds Internal Medicine Objective - Results Result Diagrams: 10/08/17 18:24 10/08/17 18: Recent Labs: Laboratory Last Values WBC 4.5 Th/cmm (4.8-10.8) L 10/08/17: RBC 4.41 Mil/cmm (4.30-5.70) 10/08/17: Hgb 13.3 gm/dL (12-16) 10/08/17: Hct 38.8 % (41.0-60) L 10/08/17: MCV 88.1 fl (80-99) 10/08/17: MCH 30.2 pg (26.0-30.0) H 10/08/17 MCHC Differential 34.2 pg (28.0-36.0) 10/08/17: RDW 12.8 % (11.5-20.0) 10/08/17: Plt Count 184 Th/cmm (150-400) 10/08/17: MPV 7.4 fl 10/08/17: Neutrophils % 58.7 % (40.0-80.0) 10/08/17: Lymphocytes % 28.6 % (20.0-50.0) 10/08/17: Monocytes % 9.0 % (2.0-10.0) 10/08/17: Eosinophils % 2.1 % (0.0-5.0) 10/08/17: Basophils % 1.6 % (0.0-2.0) 10/08/17: Sodium 138 mEq/L (136-145) 10/08/17: Potassium 4.0 mEq/L (3.5-5.1) 10/08/17: Chloride 106 mEq/L (98-107) 10/08/17: Carbon Dioxide 28.0 mEq/L (21.0-31.0) 10/08/17 18: Anion Gap 8.0 (7.0-16.0) 10/08/17 18:24 BUN 15 mg/dL (7-25) 10/08/17 18:24 Creatinine 0.7 mg/dL (0.7-1.3) 10/08/17 18:24 Est GFR ( Amer) > 60.0 ml/min (>90) 10/08/17 18:24 Est GFR (Non-Af Amer) > 60.0 ml/min 10/08/17 18:24 BUN/Creatinine Ratio 21.4 10/08/17 18:24 Glucose 99 mg/dL (70-105) 10/08/17 18:24 Calcium 9.1 mg/dL (8.6-10.3) 10/08/17 18:24 Total Bilirubin 0.5 mg/dL (0.3-1.0) 10/08/17 18:24 AST 11 U/L (13-39) L 10/08/17 18:24 ALT 5 U/L (7-52) L 10/08/17 18:24 Alkaline Phosphatase 46 U/L (34-104) 10/08/17 18:24 Total Protein 6.4 gm/dL (6.0-8.3) 10/08/17 18:24 Albumin 3.7 gm/dL (4.2-5.5) L 10/08/17 18:24 Globulin 2.7 gm/dL 10/08/17 18:24 Albumin/Globulin Ratio 1.4 (1.0-1.8) 10/08/17 18:24 TSH 1.68 uIU/ml (0.34-5.60) 10/08/17 18:24 Urine Source RANDOM 10/08/17 18:36 Urine Color YELLOW 10/08/17 18:36 Urine Clarity CLEAR (CLEAR) 10/08/17 18:36 Urine pH 6.5 (4.6 - 8.0) 10/08/17 18:36 Ur Specific [place] 1.020 (1.005-1.030) 10/08/17 18:36 Urine Protein NEGATIVE mg/dL (NEGATIVE) 10/08/17 18:36 Urine Glucose (UA) NEGATIVE mg/dL (NEGATIVE) 10/08/17 18:36 Urine Ketones TRACE mg/dL (NEGATIVE) 10/08/17 18:36 Urine Blood NEGATIVE (NEGATIVE) 10/08/17 18:36 Urine Nitrate NEGATIVE (NEGATIVE) 10/08/17 18:36 Urine Bilirubin NEGATIVE (NEGATIVE) 10/08/17 18:36 Urine Urobilinogen 1.0 E.U./dL (0.2 - 1.0) 10/08/17 18:36 Ur Leukocyte Esterase NEGATIVE (NEGATIVE) 10/08/17 18:36 Urine RBC NONE SEEN /hpf (0-5) 10/08/17 18:36 Urine WBC NONE SEEN /hpf (0-5) 10/08/17 18:36 Ur Epithelial Cells NONE SEEN /lpf (FEW) 10/08/17 18:36 Urine Bacteria NONE SEEN /hpf (NONE SEEN) 10/08/17 18:36 - Physical Exam Vitals and I&O: Vital Signs Temp 97 F 10/21/17 06:38 Pulse 60 10/21/17 09:39 Resp 18 10/21/17 06:38 BP 103/64 10/21/17 09:39 Pulse Ox 96 10/21/17 06:38 Intake & Output 10/20/17 10/21/17 10/21/17 18:59 06:59 18:59 Intake Total 860 120 Balance 860 120 Intake: Oral 860 120 Other: # Voids 3 3 # Bowel Movements 0 Stool Characteristics Soft Soft Formed Active Medications: Current Medications Acetaminophen (Tylenol) 650 mg PO Q4HR PRN PRN Reason: Mild Pain / Temp above 100 Stop: 12/07/17 21:09 Al Hydrox/Mg Hydrox/Simethicone (Maalox) 30 ml PO Q4HR PRN PRN Reason: GI DISTRESS Stop: 12/07/17 21:09 Amlodipine Besylate (Norvasc) 2.5 mg PO DAILY [facility] Stop: 12/09/17 08:59 Last Admin: 10/21/17 09:39 Dose: Not Given Bupropion HCl (Wellbutrin Xl) 150 mg PO DAILY [facility] PRN Reason: Protocol Stop: 12/21/17 08:59 Docusate Sodium (Colace) 100 mg PO BID [facility] Stop: 12/08/17 16:59 Last Admin: 10/21/17 09:43 Dose: 100 mg Escitalopram Oxalate (Lexapro) 20 mg PO DAILY [facility] PRN Reason: Protocol Stop: 12/18/17 12:08 Last Admin: 10/21/17 09:43 Dose: 20 mg Lorazepam (Ativan) 0.5 mg PO Q4HR PRN; Protocol PRN Reason: Anxiety Stop: 11/07/17 21:09 Last Admin: 10/17/17 13:43 Dose: 0.5 mg Magnesium Hydroxide (Milk Of Magnesia) 30 ml PO DAILY PRN PRN Reason: Constipation Stop: 12/08/17 13:01 Quetiapine Fumarate (Seroquel) 100 mg PO HS [facility] PRN Reason: Protocol Stop: 12/19/17 08:12 Last Admin: 10/20/17 20:20 Dose: 100 mg Zolpidem Tartrate (Ambien) 5 mg PO HS PRN PRN Reason: Insomnia Stop: 12/07/17 21:09 Last Admin: 10/20/17 20:20 Dose: 5 mg General: demented HEENT: NC/AT, PERRLA Neck: Supple, No JVD Lungs: CTAB Cardiovascular: RRR, Normal S1, Normal S2 Abdomen: soft, non-tender, globular, non-distended, positive bowel sound Extremities: excoriation Neurological: no change, disorganized - Procedures Procedures: Procedures Procedure Code Date EMERGENCY DEPT VISIT 88713 10/29/11 GROUP PSYCHOTHERAPY 73367 11/22/15 GROUP PSYCHOTHERAPY GZHZZZZ 11/22/15 GROUP PSYCHOTHERAPY 33710 08/21/15 GROUP PSYCHOTHERAPY GZHZZZZ 08/21/15 OTHER GROUP THERAPY 94.44 02/19/15 Internal Medicine Assmt/Plan - Assessment Assessment: Hypertension, asthma, benign prostatic hypertrophy, legal blindness, leukopenia, schizoaffective disorder, mild protein-calorie - Plan Plan: monitor blood pressure safety precautions continue current orders Nutritional Asmnt/Malnutr-PDOC - Dietary Evaluation Malnutrition Findings (Please click <Entered> for more info): Nutritional Asmnt/Malnutrition Start: 10/13/17 13: 15 Text: Status: Complete Freq: Document 10/13/17 13:15 [email or web address] (Rec: 10/13/17 13:18 [email or web address]) Nutritional Asmnt/Malnutrition Patient General Information Nutritional Screening Moderate Risk Diagnosis psychosis Pertinent Medical Hx/Surgical Hx HTN, asthma, BPH Subjective Information Pt very drowsy and confused. PO intake: 50-100%. Current Diet Order/ Nutrition Support TRICIA, Boost Plus TID Pertinent Medications colace, MOM Pertinent Labs 10/08 AST: 11, ALT: 5 Nutritional Hx/Data Height 5 ft 11 in Height (Calculated Centimeters) 180.3 Current Weight (lbs) 175 lb Weight (Calculated Kilograms) 79.4 Weight (Calculated Grams) 67374.7 [place] Body Weight 172 % [place] Body Weight 102 Body Mass Index (BMI) 24.4 Weight Status Approriate GI Symptoms GI Symptoms None Last BM 10/13 Difficult in: None Skin Integrity/Comment: intact, no edema Current %PO Fair (50-74%) Estimated Nutritional Goals BEE in Kcals: Using Current wt Calories/Kcals/Kg 25-30 Kcals Calculated 0840-7454 kcals Protein: Using Current wt Protein g/k Protein Calculated 80 g Fluid: ml 0283-2717 mL (1 mL/kcal) Nutritional Problem 1. Problem Problem n/a Etiology n/a Signs/Symptoms: n/a Malnutrition Alert Is there a minimum of two criteria No selected? Query Text:Check all the applicable criteria. A minimum of two criteria are recommended for diagnosis of either severe or non-severe malnutrition. Malnutrition Related to Morbid Obesity Malnutrition related to morbid obesity No Intervention/Recommendation Comments 1. Continue diet as ordered Expected Outcomes/Goals Expected Outcomes/Goals PO intake >50% monitor wt, labs, skin, PO intake
--- NOTE | 2017-10-21 22:38 | Progress Notes ---
DATE: 10/21/2017 Case was discussed with staff of the patient, reviewed records. The patient continues to be unpredictable and impulsive, needing redirection. He stays in bed mostly isolates himself. I did increased his Lexapro to 20 mg a day and increased Seroquel to 200 mg at bedtime. He denies any history of visual hallucinations now. I will be adding Wellbutrin to his medication to home with his very poor energy, severe depression, poor motivation, and discussed side effects. We will continue to work with the patient in group therapy, milieu therapy, and adjust medications as needed. JOB# [id number]
[2017-10-22] MEDS: Multivitamin w/ Minerals Tab PO SCH (09:01)
[2017-10-22] MEDS: buPROPion XL 150 mg T 24 H PO SCH (09:01)
--- NOTE | 2017-10-22 13:24 | Internal Medicine Prog Note ---
Internal Medicine Subjective - Subjective Service Date: 10/22/17 Patient is:: asleep, interactive, in bed, agitated Per staff patient has:: no adverse event, no episodes of fall, poor appetite, tolerating meds Internal Medicine Objective - Results Result Diagrams: 10/08/17 18:24 10/08/17 18 Recent Labs: Laboratory Last Values WBC 4.5 Th/cmm (4.8-10.8) L 10/08/17: RBC 4.41 Mil/cmm (4.30-5.70) 10/08/17: Hgb 13.3 gm/dL (12-16) 10/08/17: Hct 38.8 % (41.0-60) L 10/08/17: MCV 88.1 fl (80-99) 10/08/17: MCH 30.2 pg (26.0-30.0) H 10/08/17 MCHC Differential 34.2 pg (28.0-36.0) 10/08/17: RDW 12.8 % (11.5-20.0) 10/08/17: Plt Count 184 Th/cmm (150-400) 10/08/17: MPV 7.4 fl 10/08/17: Neutrophils % 58.7 % (40.0-80.0) 10/08/17: Lymphocytes % 28.6 % (20.0-50.0) 10/08/17: Monocytes % 9.0 % (2.0-10.0) 10/08/17: Eosinophils % 2.1 % (0.0-5.0) 10/08/17: Basophils % 1.6 % (0.0-2.0) 10/08/17: Sodium 138 mEq/L (136-145) 10/08/17: Potassium 4.0 mEq/L (3.5-5.1) 10/08/17: Chloride 106 mEq/L (98-107) 10/08/17: Carbon Dioxide 28.0 mEq/L (21.0-31.0) 10/08/17 18: Anion Gap 8.0 (7.0-16.0) 10/08/17 18:24 BUN 15 mg/dL (7-25) 10/08/17 18:24 Creatinine 0.7 mg/dL (0.7-1.3) 10/08/17 18:24 Est GFR ( Amer) > 60.0 ml/min (>90) 10/08/17 18:24 Est GFR (Non-Af Amer) > 60.0 ml/min 10/08/17 18:24 BUN/Creatinine Ratio 21.4 10/08/17 18:24 Glucose 99 mg/dL (70-105) 10/08/17 18:24 Calcium 9.1 mg/dL (8.6-10.3) 10/08/17 18:24 Total Bilirubin 0.5 mg/dL (0.3-1.0) 10/08/17 18:24 AST 11 U/L (13-39) L 10/08/17 18:24 ALT 5 U/L (7-52) L 10/08/17 18:24 Alkaline Phosphatase 46 U/L (34-104) 10/08/17 18:24 Total Protein 6.4 gm/dL (6.0-8.3) 10/08/17 18:24 Albumin 3.7 gm/dL (4.2-5.5) L 10/08/17 18:24 Globulin 2.7 gm/dL 10/08/17 18:24 Albumin/Globulin Ratio 1.4 (1.0-1.8) 10/08/17 18:24 TSH 1.68 uIU/ml (0.34-5.60) 10/08/17 18:24 Urine Source RANDOM 10/08/17 18:36 Urine Color YELLOW 10/08/17 18:36 Urine Clarity CLEAR (CLEAR) 10/08/17 18:36 Urine pH 6.5 (4.6 - 8.0) 10/08/17 18:36 Ur Specific [place] 1.020 (1.005-1.030) 10/08/17 18:36 Urine Protein NEGATIVE mg/dL (NEGATIVE) 10/08/17 18:36 Urine Glucose (UA) NEGATIVE mg/dL (NEGATIVE) 10/08/17 18:36 Urine Ketones TRACE mg/dL (NEGATIVE) 10/08/17 18:36 Urine Blood NEGATIVE (NEGATIVE) 10/08/17 18:36 Urine Nitrate NEGATIVE (NEGATIVE) 10/08/17 18:36 Urine Bilirubin NEGATIVE (NEGATIVE) 10/08/17 18:36 Urine Urobilinogen 1.0 E.U./dL (0.2 - 1.0) 10/08/17 18:36 Ur Leukocyte Esterase NEGATIVE (NEGATIVE) 10/08/17 18:36 Urine RBC NONE SEEN /hpf (0-5) 10/08/17 18:36 Urine WBC NONE SEEN /hpf (0-5) 10/08/17 18:36 Ur Epithelial Cells NONE SEEN /lpf (FEW) 10/08/17 18:36 Urine Bacteria NONE SEEN /hpf (NONE SEEN) 10/08/17 18:36 - Physical Exam Vitals and I&O: Vital Signs Temp 98.7 F 10/22/17 05:51 Pulse 60 10/22/17 09:01 Resp 18 10/22/17 05:51 BP 100/68 10/22/17 05:51 Pulse Ox 96 10/22/17 05:51 Intake & Output 10/21/17 10/22/17 10/22/17 18:59 06:59 18:59 Intake Total 800 500 Balance 800 500 Intake: Oral 800 500 Other: # Voids 3 2 # Bowel Movements 0 Stool Characteristics Soft Soft Formed Formed Active Medications: Current Medications Acetaminophen (Tylenol) 650 mg PO Q4HR PRN PRN Reason: Mild Pain / Temp above 100 Stop: 12/07/17 21:09 Al Hydrox/Mg Hydrox/Simethicone (Maalox) 30 ml PO Q4HR PRN PRN Reason: GI DISTRESS Stop: 12/07/17 21:09 Amlodipine Besylate (Norvasc) 2.5 mg PO DAILY [facility] Stop: 12/09/17 08:59 Last Admin: 10/22/17 09:01 Dose: Not Given Bupropion HCl (Wellbutrin Xl) 150 mg PO DAILY [facility] PRN Reason: Protocol Stop: 12/21/17 08:59 Last Admin: 10/22/17 09:01 Dose: 150 mg Docusate Sodium (Colace) 100 mg PO BID [facility] Stop: 12/08/17 16:59 Last Admin: 10/22/17 09:01 Dose: 100 mg Escitalopram Oxalate (Lexapro) 20 mg PO DAILY [facility] PRN Reason: Protocol Stop: 12/18/17 12:08 Last Admin: 10/22/17 09:01 Dose: 20 mg Lorazepam (Ativan) 0.5 mg PO Q4HR PRN; Protocol PRN Reason: Anxiety Stop: 11/07/17 21:09 Last Admin: 10/17/17 13:43 Dose: 0.5 mg Magnesium Hydroxide (Milk Of Magnesia) 30 ml PO DAILY PRN PRN Reason: Constipation Stop: 12/08/17 13:01 Quetiapine Fumarate (Seroquel) 100 mg PO HS [facility] PRN Reason: Protocol Stop: 12/19/17 08:12 Last Admin: 10/21/17 21:08 Dose: 100 mg Zolpidem Tartrate (Ambien) 5 mg PO HS PRN PRN Reason: Insomnia Stop: 12/07/17 21:09 Last Admin: 10/21/17 21:09 Dose: 5 mg General: demented HEENT: NC/AT, PERRLA Neck: Supple, No JVD Lungs: CTAB Cardiovascular: RRR, Normal S1, Normal S2 Abdomen: soft, non-tender, globular, non-distended, positive bowel sound Extremities: excoriation Neurological: no change, disorganized - Procedures Procedures: Procedures Procedure Code Date EMERGENCY DEPT VISIT 80130 10/29/11 GROUP PSYCHOTHERAPY 64816 11/22/15 GROUP PSYCHOTHERAPY GZHZZZZ 11/22/15 GROUP PSYCHOTHERAPY 98685 08/21/15 GROUP PSYCHOTHERAPY GZHZZZZ 08/21/15 OTHER GROUP THERAPY 94.44 02/19/15 Internal Medicine Assmt/Plan - Assessment Assessment: Hypertension, asthma, benign prostatic hypertrophy, legal blindness, leukopenia, schizoaffective disorder, mild protein-calorie - Plan Plan: monitor blood pressure safety precautions continue current orders Nutritional Asmnt/Malnutr-PDOC - Dietary Evaluation Malnutrition Findings (Please click <Entered> for more info): Nutritional Asmnt/Malnutrition Start: 10/13/17 13: 15 Text: Status: Complete Freq: Document 10/13/17 13:15 [email or web address] (Rec: 10/13/17 13:18 [email or web address]) Nutritional Asmnt/Malnutrition Patient General Information Nutritional Screening Moderate Risk Diagnosis psychosis Pertinent Medical Hx/Surgical Hx HTN, asthma, BPH Subjective Information Pt very drowsy and confused. PO intake: 50-100%. Current Diet Order/ Nutrition Support TRICIA, Boost Plus TID Pertinent Medications colace, MOM Pertinent Labs 10/08 AST: 11, ALT: 5 Nutritional Hx/Data Height 5 ft 11 in Height (Calculated Centimeters) 180.3 Current Weight (lbs) 175 lb Weight (Calculated Kilograms) 79.4 Weight (Calculated Grams) 26224.7 [place] Body Weight 172 % [place] Body Weight 102 Body Mass Index (BMI) 24.4 Weight Status Approriate GI Symptoms GI Symptoms None Last BM 10/13 Difficult in: None Skin Integrity/Comment: intact, no edema Current %PO Fair (50-74%) Estimated Nutritional Goals BEE in Kcals: Using Current wt Calories/Kcals/Kg 25-30 Kcals Calculated 6153-6165 kcals Protein: Using Current wt Protein g/k Protein Calculated 80 g Fluid: ml 1647-6971 mL (1 mL/kcal) Nutritional Problem 1. Problem Problem n/a Etiology n/a Signs/Symptoms: n/a Malnutrition Alert Is there a minimum of two criteria No selected? Query Text:Check all the applicable criteria. A minimum of two criteria are recommended for diagnosis of either severe or non-severe malnutrition. Malnutrition Related to Morbid Obesity Malnutrition related to morbid obesity No Intervention/Recommendation Comments 1. Continue diet as ordered Expected Outcomes/Goals Expected Outcomes/Goals PO intake >50% monitor wt, labs, skin, PO intake
--- NOTE | 2017-10-23 01:39 | Progress Notes ---
DATE: 10/22/2017 Case was discussed with staff of the patient, reviewed records. The patient tolerated the Wellbutrin with no side effects, continues however to isolate himself. He continues to be depressed, continues to be overwhelmed. He is sleeping a lot. His appetite is okay. He tolerated the increase in Lexapro that done 2 days ago as well as adding Wellbutrin yesterday and Seroquel as well that was increased to 100 mg with no side effects, no sedation, no nausea, no extrapyramidal symptoms. He continues to be unpredictable, impulsive, depressed. We will continue outpatient group therapy, milieu therapy, adjust medication as needed. JOB# [id number]
[2017-10-23] MEDS: Multivitamin w/ Minerals Tab PO SCH (08:23)
[2017-10-23] MEDS: buPROPion XL 150 mg T 24 H PO SCH (08:23)
--- NOTE | 2017-10-23 15:26 | Internal Medicine Prog Note ---
Internal Medicine Subjective - Subjective Patient seen and examined:: with staff, chart reviewed Patient is:: asleep, interactive, in bed, agitated Per staff patient has:: no adverse event, no episodes of fall, poor appetite, tolerating meds Internal Medicine Objective - Results Result Diagrams: 10/08/17 18:24 10/08/17 18: Recent Labs: Laboratory Last Values WBC 4.5 Th/cmm (4.8-10.8) L 10/08/17 18: RBC 4.41 Mil/cmm (4.30-5.70) 10/08/17 18: Hgb 13.3 gm/dL (12-16) 10/08/17: Hct 38.8 % (41.0-60) L 10/08/17: MCV 88.1 fl (80-99) 10/08/17 18: MCH 30.2 pg (26.0-30.0) H 10/08/17: MCHC Differential 34.2 pg (28.0-36.0) 10/08/17: RDW 12.8 % (11.5-20.0) 10/08/17: Plt Count 184 Th/cmm (150-400) 10/08/17: MPV 7.4 fl 10/08/17: Neutrophils % 58.7 % (40.0-80.0) 10/08/17: Lymphocytes % 28.6 % (20.0-50.0) 10/08/17: Monocytes % 9.0 % (2.0-10.0) 10/08/17: Eosinophils % 2.1 % (0.0-5.0) 10/08/17: Basophils % 1.6 % (0.0-2.0) 10/08/17 18: Sodium 138 mEq/L (136-145) 10/08/17 18: Potassium 4.0 mEq/L (3.5-5.1) 10/08/17 18: Chloride 106 mEq/L (98-107) 10/08/17 18: Carbon Dioxide 28.0 mEq/L (21.0-31.0) 10/08/17 18: Anion Gap 8.0 (7.0-16.0) 10/08/17 18:24 BUN 15 mg/dL (7-25) 10/08/17 18:24 Creatinine 0.7 mg/dL (0.7-1.3) 10/08/17 18:24 Est GFR ( Amer) > 60.0 ml/min (>90) 10/08/17 18:24 Est GFR (Non-Af Amer) > 60.0 ml/min 10/08/17 18:24 BUN/Creatinine Ratio 21.4 10/08/17 18:24 Glucose 99 mg/dL (70-105) 10/08/17 18:24 Calcium 9.1 mg/dL (8.6-10.3) 10/08/17 18:24 Total Bilirubin 0.5 mg/dL (0.3-1.0) 10/08/17 18:24 AST 11 U/L (13-39) L 10/08/17 18:24 ALT 5 U/L (7-52) L 10/08/17 18:24 Alkaline Phosphatase 46 U/L (34-104) 10/08/17 18:24 Total Protein 6.4 gm/dL (6.0-8.3) 10/08/17 18:24 Albumin 3.7 gm/dL (4.2-5.5) L 10/08/17 18:24 Globulin 2.7 gm/dL 10/08/17 18:24 Albumin/Globulin Ratio 1.4 (1.0-1.8) 10/08/17 18: TSH 1.68 uIU/ml (0.34-5.60) 10/08/17 18: Urine Source RANDOM 10/08/17 18:36 Urine Color YELLOW 10/08/17 18:36 Urine Clarity CLEAR (CLEAR) 10/08/17 18:36 Urine pH 6.5 (4.6 - 8.0) 10/08/17 18:36 Ur Specific [place] 1.020 (1.005-1.030) 10/08/17 18:36 Urine Protein NEGATIVE mg/dL (NEGATIVE) 10/08/17 18:36 Urine Glucose (UA) NEGATIVE mg/dL (NEGATIVE) 10/08/17 18:36 Urine Ketones TRACE mg/dL (NEGATIVE) 10/08/17 18:36 Urine Blood NEGATIVE (NEGATIVE) 10/08/17 18:36 Urine Nitrate NEGATIVE (NEGATIVE) 10/08/17 18:36 Urine Bilirubin NEGATIVE (NEGATIVE) 10/08/17 18:36 Urine Urobilinogen 1.0 E.U./dL (0.2 - 1.0) 10/08/17 18:36 Ur Leukocyte Esterase NEGATIVE (NEGATIVE) 10/08/17 18:36 Urine RBC NONE SEEN /hpf (0-5) 10/08/17 18:36 Urine WBC NONE SEEN /hpf (0-5) 10/08/17 18:36 Ur Epithelial Cells NONE SEEN /lpf (FEW) 10/08/17 18:36 Urine Bacteria NONE SEEN /hpf (NONE SEEN) 10/08/17 18:36 - Physical Exam Vitals and I&O: Vital Signs Temp 97.2 F 10/23/17 06:31 Pulse 50 10/23/17 11:09 Resp 18 10/23/17 11:09 BP 100/65 10/23/17 08:06 Pulse Ox 96 10/23/17 06:31 Intake & Output 10/22/17 10/23/17 10/23/17 18:59 06:59 18:59 Intake Total 800 240 Balance 800 240 Intake: Oral 800 240 Other: # Voids 3 2 Stool Characteristics Soft Soft Active Medications: Current Medications Acetaminophen (Tylenol) 650 mg PO Q4HR PRN PRN Reason: Mild Pain / Temp above 100 Stop: 12/07/17 21:09 Al Hydrox/Mg Hydrox/Simethicone (Maalox) 30 ml PO Q4HR PRN PRN Reason: GI DISTRESS Stop: 12/07/17 21:09 Amlodipine Besylate (Norvasc) 2.5 mg PO DAILY [facility] Stop: 12/09/17 08:59 Last Admin: 10/23/17 08:06 Dose: Not Given Bupropion HCl (Wellbutrin Xl) 150 mg PO DAILY [facility] PRN Reason: Protocol Stop: 12/21/17 08:59 Last Admin: 10/23/17 08:23 Dose: 150 mg Docusate Sodium (Colace) 100 mg PO BID [facility] Stop: 12/08/17 16:59 Last Admin: 10/23/17 08:23 Dose: 100 mg Escitalopram Oxalate (Lexapro) 20 mg PO DAILY [facility] PRN Reason: Protocol Stop: 12/18/17 12:08 Last Admin: 10/23/17 08:23 Dose: 20 mg Lorazepam (Ativan) 0.5 mg PO Q4HR PRN; Protocol PRN Reason: Anxiety Stop: 11/07/17 21:09 Last Admin: 10/17/17 13:43 Dose: 0.5 mg Magnesium Hydroxide (Milk Of Magnesia) 30 ml PO DAILY PRN PRN Reason: Constipation Stop: 12/08/17 13:01 Quetiapine Fumarate (Seroquel) 100 mg PO HS [facility] PRN Reason: Protocol Stop: 12/19/17 08:12 Last Admin: 10/22/17 20:21 Dose: 100 mg Zolpidem Tartrate (Ambien) 5 mg PO HS PRN PRN Reason: Insomnia Stop: 12/07/17 21:09 Last Admin: 10/22/17 20:55 Dose: 5 mg General: demented HEENT: NC/AT, PERRLA Neck: Supple, No JVD Lungs: CTAB Cardiovascular: RRR, Normal S1, Normal S2 Abdomen: soft, non-tender, globular, non-distended, positive bowel sound Extremities: excoriation Neurological: no change, disorganized - Procedures Procedures: Procedures Procedure Code Date EMERGENCY DEPT VISIT 58241 10/29/11 GROUP PSYCHOTHERAPY 68698 11/22/15 GROUP PSYCHOTHERAPY GZHZZZZ 11/22/15 GROUP PSYCHOTHERAPY 76185 08/21/15 GROUP PSYCHOTHERAPY GZHZZZZ 08/21/15 OTHER GROUP THERAPY 94.44 02/19/15 Internal Medicine Assmt/Plan - Assessment Assessment: ASSESSMENT AND PLAN: Hypertension, asthma, benign prostatic hypertrophy, legal blindness, leukopenia, schizoaffective disorder, mild protein-calorie malnutrition. - Plan Plan: We will review the patient's medication. We will give the patient adequate nutritional support. Continue the patient on return as needed basis. Continue on Norvasc. We will continue with the current care with followup consult. Nutritional Asmnt/Malnutr-PDOC - Dietary Evaluation Malnutrition Findings (Please click <Entered> for more info): Nutritional Asmnt/Malnutrition Start: 10/13/17 13: 15 Text: Status: Complete Freq: Document 10/13/17 13:15 [email or web address] (Rec: 10/13/17 13:18 [email or web address]) Nutritional Asmnt/Malnutrition Patient General Information Nutritional Screening Moderate Risk Diagnosis psychosis Pertinent Medical Hx/Surgical Hx HTN, asthma, BPH Subjective Information Pt very drowsy and confused. PO intake: 50-100%. Current Diet Order/ Nutrition Support TRICIA, Boost Plus TID Pertinent Medications colace, MOM Pertinent Labs 10/08 AST: 11, ALT: 5 Nutritional Hx/Data Height 1.8 m Height (Calculated Centimeters) 180.3 Current Weight (lbs) 79.379 kg Weight (Calculated Kilograms) 79.4 Weight (Calculated Grams) 06097.7 [place] Body Weight 172 % [place] Body Weight 102 Body Mass Index (BMI) 24.4 Weight Status Approriate GI Symptoms GI Symptoms None Last BM 10/13 Difficult in: None Skin Integrity/Comment: intact, no edema Current %PO Fair (50-74%) Estimated Nutritional Goals BEE in Kcals: Using Current wt Calories/Kcals/Kg 25-30 Kcals Calculated 1535-3480 kcals Protein: Using Current wt Protein g/k Protein Calculated 80 g Fluid: ml 9982-7335 mL (1 mL/kcal) Nutritional Problem 1. Problem Problem n/a Etiology n/a Signs/Symptoms: n/a Malnutrition Alert Is there a minimum of two criteria No selected? Query Text:Check all the applicable criteria. A minimum of two criteria are recommended for diagnosis of either severe or non-severe malnutrition. Malnutrition Related to Morbid Obesity Malnutrition related to morbid obesity No Intervention/Recommendation Comments 1. Continue diet as ordered Expected Outcomes/Goals Expected Outcomes/Goals PO intake >50% monitor wt, labs, skin, PO intake
--- NOTE | 2017-10-23 19:02 | Progress Notes ---
DATE: Dr. Bradley covering for Dr. Angulo. The patient is a 62-year-old male. Overnight staff reported the patient has mostly been isolative, withdrawn. In the last 24 hours, primary psychiatrist noted that the patient continued to be also depressed and overwhelmed. Today on [id number] evaluation, the patient still is extremely isolative, withdrawn. He is very distraught. Reports no side effects of the recent increase of Lexapro or the recent increase of the Wellbutrin and the Seroquel. Today mental status examination still distraught, psychological turmoil, poor insight, judgment and impulse control. ASSESSMENT AND PLAN: The patient continues to be psychological turmoil, distraught, overwhelmed, unable to formulate a safe plan outside the structured environment. We will continue with primary psychiatrist's treatment plan and goals which he is tolerating without any complications include Wellbutrin 150 and Lexapro 10 milligrams, quetiapine 100 mg at nighttime. JOB# [id number]
[2017-10-24] MEDS: buPROPion XL 150 mg T 24 H PO SCH (09:31)
[2017-10-24] MEDS: Multivitamin w/ Minerals Tab PO SCH (09:31)
--- NOTE | 2017-10-24 15:03 | Internal Medicine Prog Note ---
Internal Medicine Subjective - Subjective Patient seen and examined:: with staff, chart reviewed Patient is:: asleep, interactive, in bed, agitated, confused Per staff patient has:: no adverse event, no episodes of fall, poor appetite, tolerating meds Internal Medicine Objective - Results Result Diagrams: 10/08/17 18:24 10/08/17 18: Recent Labs: Laboratory Last Values WBC 4.5 Th/cmm (4.8-10.8) L 10/08/17 18: RBC 4.41 Mil/cmm (4.30-5.70) 10/08/17 18: Hgb 13.3 gm/dL (12-16) 10/08/17: Hct 38.8 % (41.0-60) L 10/08/17: MCV 88.1 fl (80-99) 10/08/17 18: MCH 30.2 pg (26.0-30.0) H 10/08/17: MCHC Differential 34.2 pg (28.0-36.0) 10/08/17: RDW 12.8 % (11.5-20.0) 10/08/17: Plt Count 184 Th/cmm (150-400) 10/08/17: MPV 7.4 fl 10/08/17: Neutrophils % 58.7 % (40.0-80.0) 10/08/17: Lymphocytes % 28.6 % (20.0-50.0) 10/08/17: Monocytes % 9.0 % (2.0-10.0) 10/08/17: Eosinophils % 2.1 % (0.0-5.0) 10/08/17: Basophils % 1.6 % (0.0-2.0) 10/08/17 18:24 Sodium 138 mEq/L (136-145) 10/08/17 18: Potassium 4.0 mEq/L (3.5-5.1) 10/08/17 18: Chloride 106 mEq/L (98-107) 10/08/17 18: Carbon Dioxide 28.0 mEq/L (21.0-31.0) 10/08/17 18: Anion Gap 8.0 (7.0-16.0) 10/08/17 18:24 BUN 15 mg/dL (7-25) 10/08/17 18:24 Creatinine 0.7 mg/dL (0.7-1.3) 10/08/17 18:24 Est GFR ( Amer) > 60.0 ml/min (>90) 10/08/17 18:24 Est GFR (Non-Af Amer) > 60.0 ml/min 10/08/17 18:24 BUN/Creatinine Ratio 21.4 10/08/17 18:24 Glucose 99 mg/dL (70-105) 10/08/17 18:24 Calcium 9.1 mg/dL (8.6-10.3) 10/08/17 18:24 Total Bilirubin 0.5 mg/dL (0.3-1.0) 10/08/17 18:24 AST 11 U/L (13-39) L 10/08/17 18:24 ALT 5 U/L (7-52) L 10/08/17 18:24 Alkaline Phosphatase 46 U/L (34-104) 10/08/17 18:24 Total Protein 6.4 gm/dL (6.0-8.3) 10/08/17 18:24 Albumin 3.7 gm/dL (4.2-5.5) L 10/08/17 18:24 Globulin 2.7 gm/dL 10/08/17 18:24 Albumin/Globulin Ratio 1.4 (1.0-1.8) 10/08/17 18: TSH 1.68 uIU/ml (0.34-5.60) 10/08/17 18:24 Urine Source RANDOM 10/08/17 18:36 Urine Color YELLOW 10/08/17 18:36 Urine Clarity CLEAR (CLEAR) 10/08/17 18:36 Urine pH 6.5 (4.6 - 8.0) 10/08/17 18:36 Ur Specific [place] 1.020 (1.005-1.030) 10/08/17 18:36 Urine Protein NEGATIVE mg/dL (NEGATIVE) 10/08/17 18:36 Urine Glucose (UA) NEGATIVE mg/dL (NEGATIVE) 10/08/17 18:36 Urine Ketones TRACE mg/dL (NEGATIVE) 10/08/17 18:36 Urine Blood NEGATIVE (NEGATIVE) 10/08/17 18:36 Urine Nitrate NEGATIVE (NEGATIVE) 10/08/17 18:36 Urine Bilirubin NEGATIVE (NEGATIVE) 10/08/17 18:36 Urine Urobilinogen 1.0 E.U./dL (0.2 - 1.0) 10/08/17 18:36 Ur Leukocyte Esterase NEGATIVE (NEGATIVE) 10/08/17 18:36 Urine RBC NONE SEEN /hpf (0-5) 10/08/17 18:36 Urine WBC NONE SEEN /hpf (0-5) 10/08/17 18:36 Ur Epithelial Cells NONE SEEN /lpf (FEW) 10/08/17 18:36 Urine Bacteria NONE SEEN /hpf (NONE SEEN) 10/08/17 18:36 - Physical Exam Vitals and I&O: Vital Signs Temp 98.6 F 10/23/17 16:20 Pulse 51 10/23/17 16:20 Resp 20 10/23/17 16:20 BP 109/69 10/23/17 16:20 Pulse Ox 98 10/23/17 16:20 Intake & Output 10/23/17 10/24/17 10/24/17 18:59 06:59 18:59 Intake Total 600 Balance 600 Intake: Oral 600 Other: # Voids 2 Stool Characteristics Soft Soft Active Medications: Current Medications Acetaminophen (Tylenol) 650 mg PO Q4HR PRN PRN Reason: Mild Pain / Temp above 100 Stop: 12/07/17 21:09 Al Hydrox/Mg Hydrox/Simethicone (Maalox) 30 ml PO Q4HR PRN PRN Reason: GI DISTRESS Stop: 12/07/17 21:09 Amlodipine Besylate (Norvasc) 2.5 mg PO DAILY [facility] Stop: 12/09/17 08:59 Last Admin: 10/23/17 08:06 Dose: Not Given Bupropion HCl (Wellbutrin Xl) 150 mg PO DAILY [facility] PRN Reason: Protocol Stop: 12/21/17 08:59 Last Admin: 10/24/17 09:31 Dose: 150 mg Docusate Sodium (Colace) 100 mg PO BID [facility] Stop: 12/08/17 16:59 Last Admin: 10/24/17 09:32 Dose: 100 mg Escitalopram Oxalate (Lexapro) 20 mg PO DAILY [facility] PRN Reason: Protocol Stop: 12/18/17 12:08 Last Admin: 10/24/17 09:31 Dose: 20 mg Lorazepam (Ativan) 0.5 mg PO Q4HR PRN; Protocol PRN Reason: Anxiety Stop: 11/07/17 21:09 Last Admin: 10/23/17 21:15 Dose: 0.5 mg Magnesium Hydroxide (Milk Of Magnesia) 30 ml PO DAILY PRN PRN Reason: Constipation Stop: 12/08/17 13:01 Quetiapine Fumarate (Seroquel) 100 mg PO HS [facility] PRN Reason: Protocol Stop: 12/19/17 08:12 Last Admin: 10/23/17 21:15 Dose: 100 mg Zolpidem Tartrate (Ambien) 5 mg PO HS PRN PRN Reason: Insomnia Stop: 12/07/17 21:09 Last Admin: 10/23/17 21:15 Dose: 5 mg General: demented HEENT: NC/AT, PERRLA Neck: Supple, No JVD Lungs: CTAB Cardiovascular: RRR, Normal S1, Normal S2 Abdomen: soft, non-tender, globular, non-distended, positive bowel sound Extremities: excoriation Neurological: no change, disorganized - Procedures Procedures: Procedures Procedure Code Date EMERGENCY DEPT VISIT 51647 10/29/11 GROUP PSYCHOTHERAPY 09070 11/22/15 GROUP PSYCHOTHERAPY GZHZZZZ 11/22/15 GROUP PSYCHOTHERAPY 44010 08/21/15 GROUP PSYCHOTHERAPY GZHZZZZ 08/21/15 OTHER GROUP THERAPY 94.44 02/19/15 Internal Medicine Assmt/Plan - Assessment Assessment: ASSESSMENT AND PLAN: Hypertension, asthma, benign prostatic hypertrophy, legal blindness, leukopenia, schizoaffective disorder, mild protein-calorie malnutrition. - Plan Plan: We will review the patient's medication. We will give the patient adequate nutritional support. Continue the patient on return as needed basis. Continue on Norvasc. We will continue with the current care with followup consult. Nutritional Asmnt/Malnutr-PDOC - Dietary Evaluation Malnutrition Findings (Please click <Entered> for more info): Nutritional Asmnt/Malnutrition Start: 10/13/17 13: 15 Text: Status: Complete Freq: Document 10/13/17 13:15 [email or web address] (Rec: 10/13/17 13:18 [email or web address]) Nutritional Asmnt/Malnutrition Patient General Information Nutritional Screening Moderate Risk Diagnosis psychosis Pertinent Medical Hx/Surgical Hx HTN, asthma, BPH Subjective Information Pt very drowsy and confused. PO intake: 50-100%. Current Diet Order/ Nutrition Support TRICIA, Boost Plus TID Pertinent Medications colace, MOM Pertinent Labs 10/08 AST: 11, ALT: 5 Nutritional Hx/Data Height 1.8 m Height (Calculated Centimeters) 180.3 Current Weight (lbs) 79.379 kg Weight (Calculated Kilograms) 79.4 Weight (Calculated Grams) 68665.7 [place] Body Weight 172 % [place] Body Weight 102 Body Mass Index (BMI) 24.4 Weight Status Approriate GI Symptoms GI Symptoms None Last BM 10/13 Difficult in: None Skin Integrity/Comment: intact, no edema Current %PO Fair (50-74%) Estimated Nutritional Goals BEE in Kcals: Using Current wt Calories/Kcals/Kg 25-30 Kcals Calculated 5932-2638 kcals Protein: Using Current wt Protein g/k Protein Calculated 80 g Fluid: ml 0717-6115 mL (1 mL/kcal) Nutritional Problem 1. Problem Problem n/a Etiology n/a Signs/Symptoms: n/a Malnutrition Alert Is there a minimum of two criteria No selected? Query Text:Check all the applicable criteria. A minimum of two criteria are recommended for diagnosis of either severe or non-severe malnutrition. Malnutrition Related to Morbid Obesity Malnutrition related to morbid obesity No Intervention/Recommendation Comments 1. Continue diet as ordered Expected Outcomes/Goals Expected Outcomes/Goals PO intake >50% monitor wt, labs, skin, PO intake
--- NOTE | 2017-10-24 17:30 | Progress Notes ---
DATE: Dr. Starkey is covering for Dr. Angulo. SUBJECTIVE: Overnight nursing staff reporting the patient has mostly been disengaged in his room. Today on [id number] evaluation, the patient observed to be still very isolative. He denies any side effects of the medications. MENTAL STATUS EXAMINATION: Disengaged, distraught, overwhelmed, and isolated. ASSESSMENT AND PLAN: A 62-year-old male, severely depressed, distraught. We will continue with the recent adjustments of Lexapro and Wellbutrin with quetiapine to continue to target the patient still depressive state. JOB# [id number]
[2017-10-25] MEDS: buPROPion XL 150 mg T 24 H PO SCH (08:04)
[2017-10-25] MEDS: Multivitamin w/ Minerals Tab PO SCH (08:04)
[2017-10-25] MEDS ORDERED: buPROPion XL 150 mg T 24 H PO SCH (11:44)
--- NOTE | 2017-10-25 12:43 | Internal Medicine Prog Note ---
Internal Medicine Subjective - Subjective Service Date: 10/25/17 Patient is:: asleep, interactive, in bed, agitated, confused Per staff patient has:: no adverse event, no episodes of fall, poor appetite, tolerating meds Internal Medicine Objective - Results Result Diagrams: 10/08/17 18:24 10/08/17 18: Recent Labs: Laboratory Last Values WBC 4.5 Th/cmm (4.8-10.8) L 10/08/17: RBC 4.41 Mil/cmm (4.30-5.70) 10/08/17 18: Hgb 13.3 gm/dL (12-16) 10/08/17: Hct 38.8 % (41.0-60) L 10/08/17 MCV 88.1 fl (80-99) 10/08/17: MCH 30.2 pg (26.0-30.0) H 10/08/17: MCHC Differential 34.2 pg (28.0-36.0) 10/08/17: RDW 12.8 % (11.5-20.0) 10/08/17: Plt Count 184 Th/cmm (150-400) 10/08/17: MPV 7.4 fl 10/08/17: Neutrophils % 58.7 % (40.0-80.0) 10/08/17: Lymphocytes % 28.6 % (20.0-50.0) 10/08/17: Monocytes % 9.0 % (2.0-10.0) 10/08/17: Eosinophils % 2.1 % (0.0-5.0) 10/08/17: Basophils % 1.6 % (0.0-2.0) 10/08/17: Sodium 138 mEq/L (136-145) 10/08/17: Potassium 4.0 mEq/L (3.5-5.1) 10/08/17: Chloride 106 mEq/L (98-107) 10/08/17 18: Carbon Dioxide 28.0 mEq/L (21.0-31.0) 10/08/17: Anion Gap 8.0 (7.0-16.0) 10/08/17 18:24 BUN 15 mg/dL (7-25) 10/08/17 18:24 Creatinine 0.7 mg/dL (0.7-1.3) 10/08/17 18:24 Est GFR ( Amer) > 60.0 ml/min (>90) 10/08/17 18:24 Est GFR (Non-Af Amer) > 60.0 ml/min 10/08/17 18:24 BUN/Creatinine Ratio 21.4 10/08/17 18:24 Glucose 99 mg/dL (70-105) 10/08/17 18:24 Calcium 9.1 mg/dL (8.6-10.3) 10/08/17 18:24 Total Bilirubin 0.5 mg/dL (0.3-1.0) 10/08/17 18:24 AST 11 U/L (13-39) L 10/08/17 18:24 ALT 5 U/L (7-52) L 10/08/17 18:24 Alkaline Phosphatase 46 U/L (34-104) 10/08/17 18:24 Total Protein 6.4 gm/dL (6.0-8.3) 10/08/17 18:24 Albumin 3.7 gm/dL (4.2-5.5) L 10/08/17 18:24 Globulin 2.7 gm/dL 10/08/17 18:24 Albumin/Globulin Ratio 1.4 (1.0-1.8) 10/08/17 18: TSH 1.68 uIU/ml (0.34-5.60) 10/08/17 18: Urine Source RANDOM 10/08/17 18:36 Urine Color YELLOW 10/08/17 18:36 Urine Clarity CLEAR (CLEAR) 10/08/17 18:36 Urine pH 6.5 (4.6 - 8.0) 10/08/17 18:36 Ur Specific [place] 1.020 (1.005-1.030) 10/08/17 18:36 Urine Protein NEGATIVE mg/dL (NEGATIVE) 10/08/17 18:36 Urine Glucose (UA) NEGATIVE mg/dL (NEGATIVE) 10/08/17 18:36 Urine Ketones TRACE mg/dL (NEGATIVE) 10/08/17 18:36 Urine Blood NEGATIVE (NEGATIVE) 10/08/17 18:36 Urine Nitrate NEGATIVE (NEGATIVE) 10/08/17 18:36 Urine Bilirubin NEGATIVE (NEGATIVE) 10/08/17 18:36 Urine Urobilinogen 1.0 E.U./dL (0.2 - 1.0) 10/08/17 18:36 Ur Leukocyte Esterase NEGATIVE (NEGATIVE) 10/08/17 18:36 Urine RBC NONE SEEN /hpf (0-5) 10/08/17 18:36 Urine WBC NONE SEEN /hpf (0-5) 10/08/17 18:36 Ur Epithelial Cells NONE SEEN /lpf (FEW) 10/08/17 18:36 Urine Bacteria NONE SEEN /hpf (NONE SEEN) 10/08/17 18:36 - Physical Exam Vitals and I&O: Vital Signs Temp 98.0 F 10/25/17 05:55 Pulse 67 10/25/17 08:04 Resp 18 10/25/17 05:55 BP 91/47 10/25/17 08:04 Pulse Ox 96 10/25/17 05:55 Intake & Output 10/24/17 10/25/17 10/25/17 18:59 06:59 18:59 Other: Stool Characteristics Soft Soft Active Medications: Current Medications Acetaminophen (Tylenol) 650 mg PO Q4HR PRN PRN Reason: Mild Pain / Temp above 100 Stop: 12/07/17 21:09 Al Hydrox/Mg Hydrox/Simethicone (Maalox) 30 ml PO Q4HR PRN PRN Reason: GI DISTRESS Stop: 12/07/17 21:09 Amlodipine Besylate (Norvasc) 2.5 mg PO DAILY [facility] Stop: 12/09/17 08:59 Last Admin: 10/25/17 08:04 Dose: Not Given Bupropion HCl (Wellbutrin Xl) 300 mg PO DAILY [facility] PRN Reason: Protocol Stop: 12/24/17 11:43 Docusate Sodium (Colace) 100 mg PO BID [facility] Stop: 12/08/17 16:59 Last Admin: 10/25/17 08:04 Dose: 100 mg Escitalopram Oxalate (Lexapro) 20 mg PO DAILY [facility] PRN Reason: Protocol Stop: 12/18/17 12:08 Last Admin: 10/25/17 08:04 Dose: 20 mg Lorazepam (Ativan) 0.5 mg PO Q4HR PRN; Protocol PRN Reason: Anxiety Stop: 11/07/17 21:09 Last Admin: 10/23/17 21:15 Dose: 0.5 mg Magnesium Hydroxide (Milk Of Magnesia) 30 ml PO DAILY PRN PRN Reason: Constipation Stop: 12/08/17 13:01 Quetiapine Fumarate (Seroquel) 100 mg PO HS SHERRY PRN Reason: Protocol Stop: 12/19/17 08:12 Last Admin: 10/24/17 21:37 Dose: 100 mg Zolpidem Tartrate (Ambien) 5 mg PO HS PRN PRN Reason: Insomnia Stop: 12/07/17 21:09 Last Admin: 10/24/17 21:36 Dose: 5 mg General: demented HEENT: NC/AT, PERRLA Neck: Supple, No JVD Lungs: CTAB Cardiovascular: RRR, Normal S1, Normal S2 Abdomen: soft, non-tender, globular, non-distended, positive bowel sound Extremities: excoriation Neurological: no change, disorganized - Procedures Procedures: Procedures Procedure Code Date EMERGENCY DEPT VISIT 58612 10/29/11 GROUP PSYCHOTHERAPY 47067 11/22/15 GROUP PSYCHOTHERAPY GZHZZZZ 11/22/15 GROUP PSYCHOTHERAPY 10346 08/21/15 GROUP PSYCHOTHERAPY GZHZZZZ 08/21/15 OTHER GROUP THERAPY 94.44 02/19/15 Internal Medicine Assmt/Plan - Assessment Assessment: Hypertension, asthma, benign prostatic hypertrophy, legal blindness, leukopenia, schizoaffective disorder, mild protein-calorie - Plan Plan: monitor blood pressure safety precautions continue current orders Nutritional Asmnt/Malnutr-PDOC - Dietary Evaluation Malnutrition Findings (Please click <Entered> for more info): Nutritional Asmnt/Malnutrition Start: 10/13/17 13: 15 Text: Status: Complete Freq: Document 10/13/17 13:15 [email or web address] (Rec: 10/13/17 13:18 [email or web address]) Nutritional Asmnt/Malnutrition Patient General Information Nutritional Screening Moderate Risk Diagnosis psychosis Pertinent Medical Hx/Surgical Hx HTN, asthma, BPH Subjective Information Pt very drowsy and confused. PO intake: 50-100%. Current Diet Order/ Nutrition Support TRICIA, Boost Plus TID Pertinent Medications colace, MOM Pertinent Labs 10/08 AST: 11, ALT: 5 Nutritional Hx/Data Height 5 ft 11 in Height (Calculated Centimeters) 180.3 Current Weight (lbs) 175 lb Weight (Calculated Kilograms) 79.4 Weight (Calculated Grams) 34902.7 [place] Body Weight 172 % [place] Body Weight 102 Body Mass Index (BMI) 24.4 Weight Status Approriate GI Symptoms GI Symptoms None Last BM 10/13 Difficult in: None Skin Integrity/Comment: intact, no edema Current %PO Fair (50-74%) Estimated Nutritional Goals BEE in Kcals: Using Current wt Calories/Kcals/Kg 25-30 Kcals Calculated 3370-8712 kcals Protein: Using Current wt Protein g/k Protein Calculated 80 g Fluid: ml 5722-2894 mL (1 mL/kcal) Nutritional Problem 1. Problem Problem n/a Etiology n/a Signs/Symptoms: n/a Malnutrition Alert Is there a minimum of two criteria No selected? Query Text:Check all the applicable criteria. A minimum of two criteria are recommended for diagnosis of either severe or non-severe malnutrition. Malnutrition Related to Morbid Obesity Malnutrition related to morbid obesity No Intervention/Recommendation Comments 1. Continue diet as ordered Expected Outcomes/Goals Expected Outcomes/Goals PO intake >50% monitor wt, labs, skin, PO intake
--- NOTE | 2017-10-26 00:05 | Progress Notes ---
DATE: 10/25/2017 Case discussed with staff of the patient, reviewed records. The patient continues to isolate himself. Continues to have poor insight, unpredictable, impulsive, needing redirection. He is sleeping well, eating well. He is compliant with the medication with no side effects. I will be increasing the Wellbutrin to 300 mg a day. No sedation, no nausea, and no extrapyramidal symptoms. We will continue to work with the patient in group therapy, milieu therapy, and adjust medication as needed. JOB# [id number]
[2017-10-26] MEDS: Multivitamin w/ Minerals Tab PO SCH (09:51)
--- NOTE | 2017-10-26 14:17 | Discharge Summary ---
DATE OF DISCHARGE: 10/25/2017 IDENTIFYING INFORMATION: The patient is a 62-year-old male. CHIEF COMPLAINT: I have referred this patient after evaluating him at [facility] and he told me if I could euthanize him. He was internally preoccupied. He is a well-known case to me. Has multiple prior admissions to this facility for similar reason. The patient's course in the hospital and started back on his medications. The patient was initiated on Lexapro and I increased the dose to 20 mg a day. Also, I added Seroquel, increased to 75 mg at bedtime and because of lack of motivation and poor energy, staying in bed all the time, added Wellbutrin 300 mg and increased to 300 mg a day. The patient progressively got better. He was no longer depressed and wanting to be euthanized. He was not acting anyway dangerous while he was here, he was sleeping well, eating well. So, we felt he could be discharged to a lesser level of care. FINAL DIAGNOSIS: AXIS I: Schizoaffective disorder. MEDICAL DIAGNOSES: Blindness, benign prostatic hypertrophy, legal blindness, hypertension, asthma, leukopenia and mild protein-calorie malnutrition. The patient will be going back to [facility]. We will follow up with the psychiatrist and primary care physician. EXPECTED OUTCOME: Stable if the patient complies with the above. JOB# [id number]
--- NOTE | 2017-10-26 15:08 | Internal Medicine Prog Note ---
Internal Medicine Subjective - Subjective Service Date: 10/26/17 Patient is:: asleep, interactive, in bed, agitated, confused Per staff patient has:: no adverse event, no episodes of fall, poor appetite, tolerating meds Internal Medicine Objective - Results Result Diagrams: 10/08/17 18:24 10/08/17 18: Recent Labs: Laboratory Last Values WBC 4.5 Th/cmm (4.8-10.8) L 10/08/17: RBC 4.41 Mil/cmm (4.30-5.70) 10/08/17 18: Hgb 13.3 gm/dL (12-16) 10/08/17: Hct 38.8 % (41.0-60) L 10/08/17 MCV 88.1 fl (80-99) 10/08/17: MCH 30.2 pg (26.0-30.0) H 10/08/17: MCHC Differential 34.2 pg (28.0-36.0) 10/08/17: RDW 12.8 % (11.5-20.0) 10/08/17: Plt Count 184 Th/cmm (150-400) 10/08/17: MPV 7.4 fl 10/08/17: Neutrophils % 58.7 % (40.0-80.0) 10/08/17: Lymphocytes % 28.6 % (20.0-50.0) 10/08/17: Monocytes % 9.0 % (2.0-10.0) 10/08/17: Eosinophils % 2.1 % (0.0-5.0) 10/08/17: Basophils % 1.6 % (0.0-2.0) 10/08/17: Sodium 138 mEq/L (136-145) 10/08/17: Potassium 4.0 mEq/L (3.5-5.1) 10/08/17: Chloride 106 mEq/L (98-107) 10/08/17 18: Carbon Dioxide 28.0 mEq/L (21.0-31.0) 10/08/17: Anion Gap 8.0 (7.0-16.0) 10/08/17 18:24 BUN 15 mg/dL (7-25) 10/08/17 18:24 Creatinine 0.7 mg/dL (0.7-1.3) 10/08/17 18:24 Est GFR ( Amer) > 60.0 ml/min (>90) 10/08/17 18:24 Est GFR (Non-Af Amer) > 60.0 ml/min 10/08/17 18:24 BUN/Creatinine Ratio 21.4 10/08/17 18:24 Glucose 99 mg/dL (70-105) 10/08/17 18:24 Calcium 9.1 mg/dL (8.6-10.3) 10/08/17 18:24 Total Bilirubin 0.5 mg/dL (0.3-1.0) 10/08/17 18:24 AST 11 U/L (13-39) L 10/08/17 18:24 ALT 5 U/L (7-52) L 10/08/17 18:24 Alkaline Phosphatase 46 U/L (34-104) 10/08/17 18:24 Total Protein 6.4 gm/dL (6.0-8.3) 10/08/17 18:24 Albumin 3.7 gm/dL (4.2-5.5) L 10/08/17 18:24 Globulin 2.7 gm/dL 10/08/17 18:24 Albumin/Globulin Ratio 1.4 (1.0-1.8) 10/08/17 18: TSH 1.68 uIU/ml (0.34-5.60) 10/08/17 18: Urine Source RANDOM 10/08/17 18:36 Urine Color YELLOW 10/08/17 18:36 Urine Clarity CLEAR (CLEAR) 10/08/17 18:36 Urine pH 6.5 (4.6 - 8.0) 10/08/17 18:36 Ur Specific [place] 1.020 (1.005-1.030) 10/08/17 18:36 Urine Protein NEGATIVE mg/dL (NEGATIVE) 10/08/17 18:36 Urine Glucose (UA) NEGATIVE mg/dL (NEGATIVE) 10/08/17 18:36 Urine Ketones TRACE mg/dL (NEGATIVE) 10/08/17 18:36 Urine Blood NEGATIVE (NEGATIVE) 10/08/17 18:36 Urine Nitrate NEGATIVE (NEGATIVE) 10/08/17 18:36 Urine Bilirubin NEGATIVE (NEGATIVE) 10/08/17 18:36 Urine Urobilinogen 1.0 E.U./dL (0.2 - 1.0) 10/08/17 18:36 Ur Leukocyte Esterase NEGATIVE (NEGATIVE) 10/08/17 18:36 Urine RBC NONE SEEN /hpf (0-5) 10/08/17 18:36 Urine WBC NONE SEEN /hpf (0-5) 10/08/17 18:36 Ur Epithelial Cells NONE SEEN /lpf (FEW) 10/08/17 18:36 Urine Bacteria NONE SEEN /hpf (NONE SEEN) 10/08/17 18:36 - Physical Exam Vitals and I&O: Vital Signs Temp 97.6 F 10/26/17 14:00 Pulse 60 10/26/17 14:00 Resp 20 10/26/17 14:00 BP 102/56 10/26/17 14:00 Pulse Ox 96 10/26/17 14:00 Intake & Output 10/25/17 10/26/17 10/26/17 18:59 06:59 18:59 Intake Total 950 240 Balance 950 240 Weight (lbs) 175 lb Intake: Oral 950 240 Other: # Voids 4 4 # Bowel Movements 1 0 Active Medications: Current Medications Acetaminophen (Tylenol) 650 mg PO Q4HR PRN PRN Reason: Mild Pain / Temp above 100 Stop: 12/07/17 21:09 Al Hydrox/Mg Hydrox/Simethicone (Maalox) 30 ml PO Q4HR PRN PRN Reason: GI DISTRESS Stop: 12/07/17 21:09 Amlodipine Besylate (Norvasc) 2.5 mg PO DAILY [facility] Stop: 12/09/17 08:59 Last Admin: 10/26/17 10:00 Dose: Not Given Bupropion HCl (Wellbutrin Xl) 300 mg PO DAILY [facility] PRN Reason: Protocol Stop: 12/24/17 11:43 Last Admin: 10/26/17 09:50 Dose: 300 mg Docusate Sodium (Colace) 100 mg PO BID [facility] Stop: 12/08/17 16:59 Last Admin: 10/26/17 09:51 Dose: 100 mg Escitalopram Oxalate (Lexapro) 20 mg PO DAILY [facility] PRN Reason: Protocol Stop: 12/18/17 12:08 Last Admin: 10/26/17 09:50 Dose: 20 mg Lorazepam (Ativan) 0.5 mg PO Q4HR PRN; Protocol PRN Reason: Anxiety Stop: 11/07/17 21:09 Last Admin: 10/23/17 21:15 Dose: 0.5 mg Magnesium Hydroxide (Milk Of Magnesia) 30 ml PO DAILY PRN PRN Reason: Constipation Stop: 12/08/17 13:01 Quetiapine Fumarate (Seroquel) 100 mg PO HS SHERRY PRN Reason: Protocol Stop: 12/19/17 08:12 Last Admin: 10/25/17 20:25 Dose: 100 mg Zolpidem Tartrate (Ambien) 5 mg PO HS PRN PRN Reason: Insomnia Stop: 12/07/17 21:09 Last Admin: 10/25/17 20:25 Dose: 5 mg General: demented HEENT: NC/AT, PERRLA Neck: Supple, No JVD Lungs: CTAB Cardiovascular: RRR, Normal S1, Normal S2 Abdomen: soft, non-tender, globular, non-distended, positive bowel sound Extremities: excoriation Neurological: no change, disorganized - Procedures Procedures: Procedures Procedure Code Date EMERGENCY DEPT VISIT 04289 10/29/11 GROUP PSYCHOTHERAPY 85119 11/22/15 GROUP PSYCHOTHERAPY GZHZZZZ 11/22/15 GROUP PSYCHOTHERAPY 28304 08/21/15 GROUP PSYCHOTHERAPY GZHZZZZ 08/21/15 OTHER GROUP THERAPY 94.44 02/19/15 Internal Medicine Assmt/Plan - Assessment Assessment: Hypertension, asthma, benign prostatic hypertrophy, legal blindness, leukopenia, schizoaffective disorder, mild protein-calorie - Plan Plan: monitor blood pressure safety precautions continue current orders Nutritional Asmnt/Malnutr-PDOC - Dietary Evaluation Malnutrition Findings (Please click <Entered> for more info): Nutritional Asmnt/Malnutrition Start: 10/13/17 13: 15 Text: Status: Complete Freq: Document 10/13/17 13:15 [email or web address] (Rec: 10/13/17 13:18 [email or web address]) Nutritional Asmnt/Malnutrition Patient General Information Nutritional Screening Moderate Risk Diagnosis psychosis Pertinent Medical Hx/Surgical Hx HTN, asthma, BPH Subjective Information Pt very drowsy and confused. PO intake: 50-100%. Current Diet Order/ Nutrition Support TRICIA, Boost Plus TID Pertinent Medications colace, MOM Pertinent Labs 10/08 AST: 11, ALT: 5 Nutritional Hx/Data Height 5 ft 11 in Height (Calculated Centimeters) 180.3 Current Weight (lbs) 175 lb Weight (Calculated Kilograms) 79.4 Weight (Calculated Grams) 39629.7 [place] Body Weight 172 % [place] Body Weight 102 Body Mass Index (BMI) 24.4 Weight Status Approriate GI Symptoms GI Symptoms None Last BM 10/13 Difficult in: None Skin Integrity/Comment: intact, no edema Current %PO Fair (50-74%) Estimated Nutritional Goals BEE in Kcals: Using Current wt Calories/Kcals/Kg 25-30 Kcals Calculated 4938-0663 kcals Protein: Using Current wt Protein g/k Protein Calculated 80 g Fluid: ml 6570-7545 mL (1 mL/kcal) Nutritional Problem 1. Problem Problem n/a Etiology n/a Signs/Symptoms: n/a Malnutrition Alert Is there a minimum of two criteria No selected? Query Text:Check all the applicable criteria. A minimum of two criteria are recommended for diagnosis of either severe or non-severe malnutrition. Malnutrition Related to Morbid Obesity Malnutrition related to morbid obesity No Intervention/Recommendation Comments 1. Continue diet as ordered Expected Outcomes/Goals Expected Outcomes/Goals PO intake >50% monitor wt, labs, skin, PO intake
== END 2017-10-26 18:20 | disposition home or self-care (01) | DRG 885 ==
LOC: ER 16:39 → GERO 20:00
PROVIDERS: ADMIT Psychiatry & Neurology Psychiatry; ATTEND Psychiatry & Neurology Psychiatry
DX: F25.9 Schizoaffective disorder, unspecified (principal); F33.2 Major depressive disorder, recurrent severe without psychotic features; E44.1 Mild protein-calorie malnutrition; I10 Essential (primary) hypertension; J45.909 Unspecified asthma, uncomplicated; N40.0 Benign prostatic hyperplasia without lower urinary tract symptoms; H54.8 Legal blindness, as defined in USA; D72.819 Decreased white blood cell count, unspecified; Z88.8 Allergy status to other drugs, medicaments and biological substances; Z82.49 Family history of ischemic heart disease and other diseases of the circulatory system; Z68.24 Body mass index [BMI] 24.0-24.9, adult
CPT/HCPCS: 36415-UA; 71045-TC; 80053-TC; 81001-TC; 84443-TC; 85025-TC; 93005; G0410; Z7610

== ENCOUNTER 2018-02-07 16:53 | Inpatient (IN) | payer MEDICARE, MEDICAID ==
--- NOTE | 2018-02-07 17:12 | ED Physician Chart ---
ED Chief Complaint/HPI - Patient Information Date Seen:: 02/07/18 Time Seen:: 17:00 Chief Complaint:: Agitation History of Present Illness:: onset x 3 days of agitation and aggressive behavior; no report of trauma, H/as, neck pain, cough, C/P, SOB, Abd. Pain, A/N/V/D/C, fever, chills, or urinary s/s Allergies:: Allergies Allergy/AdvReac Type Severity Reaction Status Date / Time fluphenazine Allergy Verified 02/07/18 17:00 prolixin Allergy Uncoded 11/22/15 16:40 Historian:: Patient, EMS Review:: Nurse's Note Reviewed, Old Chart Reviewed, EMS run form Reviewed ED Review of Systems - Review of Systems General/Constitutional: No fever, No chills, No weight loss, No weakness, No diaphoresis, No edema, No loss of appetite Skin: No skin lesions, No rash, No bruising Head: No headache, No light-headedness Eyes: No loss of vision, No pain, No diplopia ENT: No earache, No nasal drainage, No sore throat, No tinnitus Neck: No neck pain, No swelling, No thyromegaly, No stiffness, No mass noted Cardio Vascular: No chest pain, No palpitations, No PND, No orthopnea, No edema Pulmonary: SOB, Cough, No sputum, Wheezing GI: No nausea, No vomiting, No diarrhea, No pain, No melena, No hematochezia, No constipation, No hematemesis G/U: No dysuria, No frequency, No hematuria, No nacturia Musculoskeletal: No bone or joint pain, No back pain, No muscle pain Endocrine: No polyuria, No polydipsia Psychiatric: No prior psych history, No depression, No anxiety, No suicidal ideation, No homicidal ideation, No auditory hallucination, No visual hallucination Hematopoietic: No bruising, No lymphadenopathy Allergic/Immuno: No urticaria, No angioedema Neurological: No syncope, No focal symptoms, No weakness, No paresthesia, No headache, No seizure, No dizziness, No confusion, No vertigo ED Past Medical History - Past Medical History Obtainable: Yes Past Medical History: HTN, Asthma/COPD, Dyslipidemia, Arthritis, Dementia Family History: HTN Social History: Non Smoker, No Alcohol, No Drug Use, Single, Care Facility Surgical History: None Psychiatricy History: Schizophrenia, Bipolar, Dementia Medication: Reviewed Family Medical History - Family Member Mother History Unknown: Yes Ethnicity: Unknown Living Status: Unknown Hx Family Cancer: (Unknown) Hx Family Coronary Artery Disease: (Unknown) Hx Family Congestive Heart Failure: (Unknown) Hx Family Hypertension: (Unknown) Hx Family Stroke: (Unknown) Hx Family Diabetes: (Unknown) Hx Family Seizures: (Unknown) Hx Family Dementia: (Unknown) Hx Family AIDS: (Unknown) Hx Family HIV: No Hx Family COPD: (Unknown) Hx Family Hepatitis: (Unknown) Hx Family Psychiatric Problems: (Unknown) Hx Family Tuberculosis: (Unknown) Father History Unknown: Yes Ethnicity: Unknown Living Status: Unknown Hx Family Hypertension: Yes Hx Family Psychiatric Problems: Yes ED Physical Exam - Physical Examination General/Constitutional: Awake, Well-developed, well-nourished, Alert, No distress, GCS 15, Non-toxic appearing, Ambulatory Head: Atraumatic Eyes: Lids, conjuctiva normal, PERRL, EOMI Skin: Nl inspection, No rash, No skin lesions, No ecchymosis, Well hydrated, No lymphadenopathy ENMT: External ears, nose nl, TM canals nl, Nasal exam nl, Lips, teeth, gums nl , Oropharynx nl, Tonsils nl Neck: Nontender, Full ROM w/o pain, No JVD, No nuchal rigidity, No bruit, No mass, No stridor Respiratory: Nl effort/Exclusion, Clear to Auscultation, No Wheeze/Rhonchi/Rales Cardio Vascular: RRR, No murmur, gallop, rubs, NL S1 S2, Carotid/Femoral/Distal pulses equal bilaterally GI: No tenderness/rebounding/guarding, No organomegaly, No hernia, Normal BS's, Nondistended, No mass/bruits, No McBurney tenderness : No CVA tenderness Extremities: No tenderness or effusion, Full ROM, normal strength in all extremities, No edema, Normal digits & nails Neuro/Psych: Alert/oriented, DTR's symmetric, Normal sensory exam, Normal motor strength, Judgement/insight normal, Mood normal, Normal gait, No focal deficits Other Neuro/Psych comments:: + Psychomotor Agitation; no SIs; Mood/Affect: Labile; + Tardive Dyskinesia Misc: Normal back, No paraspinal tenderness ED Labs/Radiology/EKG Results - Lab Results Comments:: unremarkable - EKG Interpretations EKG Time:: 17:09 Rate & Rhythm: 70; NSR Comments:: old IWMI; non-specific st-t changes ED Septic Shock - . Is Septic Shock (SBP<90, OR Lactate>4 mmol\L) present?: No ED Reassessment (Disposition) - Reassessment Reassessment Condition:: Improved - Diagnosis Diagnosis:: Dx: Agitation; Tardive Dyskinesia; Medical Clearance; Schizophrenia; Dementia; Schizo-Affective Disorder - Aftercare/Follow up Instructions Aftercare/Follow-Up Instructions:: Counseled pt regarding lab results/diagnosis & need follow up, Counseled pt & family regarding lab results/diagnosis & need follow up - Patient Disposition Discharge/Transfer:: Acute Care w/in this hosp Admitted to:: [facility] Condition at Disposition:: Stable, Improved
[2018-02-07 17:25] LABS: % BASOPHILS 0.3 % (0.0-2.0); % LYMPHOCYTES 18.6 % (20.0-50.0); % MONOCYTES 6.4 % (2.0-10.0); % NEUTROPHILS 72.7 % (40.0-80.0); EOSINOPHILE ABSOLUTE 0.1 Th/cmm (0.1-0.4); HEMATOCRIT 41.3 % (41.0-60); HEMOGLOBIN 13.8 gm/dL (12-16); LYMPHOCYTE ABSOLUTE 1.3 Th/cmm (1.5-3.0); MEAN CELL VOLUME 87.3 fl (80-99); MEAN CORPUSCULAR HEMOGLOBIN 29.3 pg (27.0-31.0); MEAN CORPUSCULAR HGB CONC 33.5 pg (28.0-36.0); MEAN PLATELET VOLUME 7.8 fl; MONOCYTE ABSOLUTE 0.5 Th/cmm (0.3-1.0); NEUTROPHILE ABSOLUTE 5.2 Th/cmm (1.8-8.0); PLATELET COUNT 256 Th/cmm (150-400); RED BLOOD COUNT 4.73 Mil/cmm (3.80-5.80); RED CELL DISTRIBUTION WIDTH 13.1 % (11.5-20.0); WHITE BLOOD COUNT 7.1 Th/cmm (4.8-10.8)
[2018-02-07 17:45] LABS: A1C % 4.9 % (4.0-6.0); ACETAMINOPHEN < 10.0 ug/mL (10.0-30.0); ALB/GLOB RATIO 1.5 (1.0-1.8); ALKALINE PHOSPHATASE 50 U/L (34-104); ANION GAP 11.2 (7.0-16.0); BILIRUBIN,TOTAL 0.6 mg/dL (0.3-1.0); BUN - UREA NITROGEN 16 mg/dL (7-25); CALCIUM SERUM 9.3 mg/dL (8.6-10.3); CARBON DIOXIDE 23.8 mEq/L (21.0-31.0); CHLORIDE 108 mEq/L (98-107); CHOLESTEROL 147 mg/dL (<200); CREATININE - SERUM 0.8 mg/dL (0.7-1.3); GFR AFRICAN-AMERICAN > 60.0 ml/min (>90); GFR NON AFRICAN-AMERICAN > 60.0 ml/min; GLUCOSE 102 mg/dL (70-105); HDL -HIGH DENSITY LIPOPROTEIN 48 mg/dL (23-92); SGOT 14 U/L (13-39); SGPT/ALT 9 U/L (7-52); SODIUM SERUM 139 mEq/L (136-145); TOTAL PROTEIN,SERUM 6.7 gm/dL (6.0-8.3); TRIGLYCERIDES 72 mg/dL (<150)
[2018-02-07 17:46] LABS: SALICYLATES (ASPIRIN) < 25.0 mg/L (30.0-100.0)
[2018-02-07 20:08] VITALS: BP 113/64
[2018-02-08] MEDS: buPROPion XL 150 mg T 24 H PO SCH (08:59)
[2018-02-08] MEDS ORDERED: Magnesium Hydroxide (MOM) 30 mL UDC PO PRN (09:13)
--- NOTE | 2018-02-08 10:14 | History & Physical ---
ADMIT DATE: 02/08/2018 PATIENT'S IDENTIFICATION: ___. CHIEF COMPLAINT: "Who are you." HISTORY OF PRESENT ILLNESS: The patient is a patient of mine who resides at [facility] has been followed by myself and Dr. Angulo, brought in to the Emergency Room for evaluation of increasing agitation and aggressive behavior for last 3 days. After being evaluated by Emergency Room MD, the patient is admitted to the hospital for further treatment. PAST MEDICAL HISTORY: Remarkable for: 1. Hypertension. 2. Asthma. 3. Legally blindness. 4. DJD. 5. Psychiatric disorder. MEDICATIONS: At the long term has been reviewed and reconciled appropriately. ALLERGIES: The patient is allergic to FLUPHENAZINE. SOCIAL HISTORY: The patient resides at [facility]. No history of smoking cigarette, drinking alcohol, and street drug use. FAMILY MEDICAL HISTORY: Remarkable for hypertension. REVIEW OF SYSTEMS: The patient currently denies any headache, blurred vision, double vision, dysphagia, odynophagia, runny nose, stuffy nose, fever, chills, cough, chest pain, shortness of breath, palpitation, dizziness, nausea, vomiting, diarrhea, dysuria, hematuria, hematochezia, melena. No seizure or syncopal episode. PHYSICAL EXAMINATION: GENERAL: The patient is alert, awake, oriented, lying in the bed without any acute distress. VITAL SIGNS: Temperature 98, pulse is 64, respiratory rate 18, blood pressure 144/80. SKIN: Warm to touch. Adequate skin turgor. No petechia, no purpura. HEENT: Normocephalic, atraumatic. Extraocular muscles are intact. Tongue was pink and coated, legally blindness in the right eye noted. No facial asymmetry noted. NECK: Supple, no JVD. No hepatojugular reflux. No lymphadenopathy, thyromegaly, or carotid bruit. HEART: Both heart sounds are regular. No S3, no S4, no murmur. CHEST: Lung equal in expansion, no wheezing, no crackles. ABDOMEN: Soft. No guarding, no rigidity. Liver and spleen not palpable. No palpable mass. EXTREMITIES: No edema, no cyanosis, no clubbing. Pulses are +2. No calf tenderness noted. NEUROLOGIC: Alert, awake, oriented, moving upper and lower extremities without any difficulty. No neuro deficit noted, otherwise. AVAILABLE DIAGNOSTIC DATA: Which remarkable for white count of 7.1, hemoglobin 13.8, platelet count 256. BUN and creatinine 16 and 0.8. Electrolytes are within normal limit. Albumin of 4. TSH of 0.9. The patient's other labs are not available for my review. CLINICAL IMPRESSIONS: 1. Hypertension. 2. Bronchial asthma. 3. Degenerative joint disease. 4. 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 5. Psychotic disorder exacerbation. 6. High risk for fall. PLAN: Continue amlodipine for hypertension. Continue Cogentin for prevention of a tardive dyskinesia. Continue his other p.r.n. medications along with inhalers as well. Psychotic evaluation and management deferred to psychiatrist. The patient is medically stable to participate in the activity provided by the [facility]. The patient will be followed by us during his stay in the hospital. I sincerely, thank you, Dr. Angulo, for giving me the opportunity to participate in mutual patient of ours. JOB# [id number]
--- NOTE | 2018-02-08 12:05 | Psychosocial Evaluation ---
DATE OF SERVICE: 02/07/2018 IDENTIFYING INFORMATION: The patient is a 63-year-old male. CHIEF COMPLAINT: No answer. HISTORY OF PRESENT ILLNESS: The patient was referred from [place] because of increased agitation, resisting care, disorganized, confused, disruptive behavior, not eating much, and being weak. The patient himself was a poor historian. He was unable to tell me the date, where he is, why he is here. He was internally preoccupied. He is a well-known patient, I have seen him many times and has been seeing him for the past years with a history of hallucination, psychosis, and at times suicidal. PAST PSYCHIATRIC HISTORY: Multiple prior admissions to this facility and other facility because of psychosis. MEDICATIONS: The patient has been on Seroquel 100 mg at bedtime, Lexapro 10 mg daily, Wellbutrin 150 mg daily, and Cogentin 2 mg twice a day. MEDICAL HISTORY: The patient is legally blind. The patient also has been having side effects to the medications as well as tardive dyskinesia. ALLERGIES: THE PATIENT IS ALLERGIC TO PROLIXIN. FAMILY AND SOCIAL HISTORY: Refer to old records. MENTAL STATUS EXAMINATION: The patient is appropriately dressed, not well groomed. He was in bed. He was agitated, irritable, unable to participate in meaningful conversation or make safe plan for self-care. He used to be at times to be responding to internal stimuli, but he denies that he is having any command hallucination. He gets easily agitated. He has not been sleeping or eating well. He is unable to cooperate with memory testing. His insight and judgment is impaired. IMPRESSION: AXIS I: Schizoaffective disorder. MEDICAL DIAGNOSES: Deferred to the medical doctor. His assets, he is accepting treatment. Negative poor coping skills. INITIAL TREATMENT PLAN: The patient will continue medication, adjust medication as needed. ESTIMATED LENGTH OF STAY: 3-7 days. DISCHARGE CRITERIA: Decrease agitation, psychosis, eating better, sleeping better. After discharge outpatient treatment. [facility]# [id number]
[2018-02-08] MEDS: Benztropine 1 MG TAB PO SCH (16:40)
[2018-02-08] MEDS ORDERED: Non-Formulary Item 1 EA (Melatonin [Melatonin] 3 MG) PO SCH (21:00)
[2018-02-09] MEDS: Multivitamin w/ Minerals Tab PO SCH (08:21)
[2018-02-09] MEDS: Benztropine 1 MG TAB PO SCH ×2 (08:24→16:53)
[2018-02-09] MEDS: buPROPion XL 150 mg T 24 H PO SCH (08:24)
--- NOTE | 2018-02-09 08:38 | Diagnostic Imaging Report ---
CHEST X-RAY: AP view INDICATION: Aspiration COMPARISON: 10/08/2017 FINDINGS: Skinfolds are noted. Low lung volumes are seen with mild increased interstitial lung markings. There is elevation of the right hemidiaphragm. Heart size is normal. Degenerative changes are noted with scoliosis. Gas distends of bowel the upper abdomen are noted. IMPRESSION: Low lung volumes and increased interstitial lung markings. Faint infiltrate of the right upper lung zone cannot be excluded.
--- NOTE | 2018-02-09 12:22 | Progress Notes ---
DATE: 02/09/2018 SUBJECTIVE: Case was discussed with staff of the patient, reviewed records. The patient today was alert. He was feeding himself. He was cooperative. He looked like he lost weight. He has been weak. He is on because of the fact that he is legally blind and cannot see very well and medications that could make him sedated. His current medication includes amlodipine 2.5 mg daily, Cogentin 2 mg twice a day, Lexapro, start with Wellbutrin 150 mg daily and Lexapro 10 mg daily, Ativan 0.5 mg; however, needed, multivitamin 1 tablet daily, He is only on Seroquel 100 mg at bedtime, Ambien 5 mg tablets and for lack of sleep and so far no side effects with the medication other than he may have tardive dyskinesia from long-term exposure to antipsychotic We will continue to work with the patient in group therapy, milieu therapy, adjust the medication as needed. JOB# [id number]
--- NOTE | 2018-02-09 14:29 | Diagnostic Imaging Report ---
CT Chest without IV contrast HISTORY: Shortness of breath COMPARISON: Chest x-ray on 02/08/2018. Technique: Axial images were obtained from the base of the neck to the upper abdomen without IV contrast. Reconstructions were made. Total DLP 248 CTD I 5 Findings: There is elevation of the right hemidiaphragm. Evaluation of solid organs is limited due to lack of IV contrast. The ascending aorta is ectatic measuring up to 4.8 cm. Mild atherosclerotic vascular disease noted. No evidence of pericardial effusion. The heart size normal. Calcified left hilar lymph nodes are noted. Evaluation lung mack demonstrate hypoventilatory atelectatic changes of the lungs. There is a 5 mm nodule of the superior posterior aspect of the right upper lobe (image 62, series 4). Additional few 2 to 3 mm subpleural nodules are noted.. There is elevation of the right hemidiaphragm. Mild right basal atelectatic changes are noted. No focal consolidation or pleural effusions. The upper abdomen demonstrates copious amount of stool with distended stomach containing food contents. Calcifications of the upper abdomen are noted, appear to be separate from the pancreas. Splenic calcifications are noted. Advanced degenerative changes of the spine are noted with spinal scoliosis. IMPRESSION: Ectatic aorta measuring up to 4.8 cm. Mild atherosclerosis is also noted. Note exam is limited due to lack of IV contrast per Elevation of the right hemidiaphragm. Bibasal atelectatic changes are noted with no focal consolidation or effusions. Mild chronic lung changes are noted. 5 mm right lower lobe nodule, nonspecific, and may be due to infectious/inflammatory or less likely neoplastic process. Additional 2 to 3 mm subpleural nodules are also noted again nonspecific but probably due to prior infectious or inflammatory process. Correlation with old exams would be helpful for comparison. Alternatively, short-term follow-up CT chest examination in 6 months is recommended. Evidence of prior granulomatous disease. There are probable calcified granulomas of the upper abdomen. Copious stool noted with distended food -filled stomach.
--- NOTE | 2018-02-10 05:01 | Progress Notes ---
DATE: 02/09/2018 IDENTIFICATION: A 63-year-old male. The patient seen and examined. The patient is lying in the bed. The patient has no chest pain, shortness of breath, palpitation, cough, congestion. Chest x-ray done, remarkable for increased interstitial marking and infiltrate on the right upper lung zone. The patient has no pulmonary symptoms. PHYSICAL EXAMINATION: VITAL SIGNS: Temperature 97.4, pulse 72, respiratory is 18, blood pressure 105/57. HEENT: No facial asymmetry. NECK: Supple, no JVD. HEART: Regular. CHEST: Lung equal in expansion. No wheezing, no crackles. ABDOMEN: Soft. EXTREMITIES: No edema. IMPRESSION: 1. Abnormal chest x-ray. 2. Hypertension. 3. Asthma. 4. Degenerative joint disease. PLAN: Proceed with CT scan of the chest, noncontrast for evaluation of abnormal chest x-ray. Continue antihypertensive medication as well. Provide fall precautions and general nursing care. Further recommendation based on CT scan of the chest. JOB# [id number]
[2018-02-10] MEDS: Benztropine 1 MG TAB PO SCH ×2 (09:38→16:30)
[2018-02-10] MEDS: Multivitamin w/ Minerals Tab PO SCH (09:38)
[2018-02-10] MEDS: buPROPion XL 150 mg T 24 H PO SCH (09:39)
--- NOTE | 2018-02-10 14:13 | Internal Medicine Prog Note ---
Internal Medicine Subjective - Subjective Patient seen and examined:: with staff, chart reviewed Patient is:: awake, verbal, interactive, in bed Per staff patient has:: no adverse event, no episodes of fall, eating well, poor appetite Internal Medicine Objective - Results Result Diagrams: 02/07/18 17:15 02/07/18 17:15 Recent Labs: Laboratory Last Values WBC 7.1 Th/cmm (4.8-10.8) 02/07/18 17:15 RBC 4.73 Mil/cmm (3.80-5.80) 02/07/18 17:15 Hgb 13.8 gm/dL (12-16) 02/07/18 17:15 Hct 41.3 % (41.0-60) 02/07/18 17:15 MCV 87.3 fl (80-99) 02/07/18 17:15 MCH 29.3 pg (27.0-31.0) 02/07/18 17:15 MCHC Differential 33.5 pg (28.0-36.0) 02/07/18 17:15 RDW 13.1 % (11.5-20.0) 02/07/18 17:15 Plt Count 256 Th/cmm (150-400) 02/07/18 17:15 MPV 7.8 fl 02/07/18 17:15 Neutrophils % 72.7 % (40.0-80.0) 02/07/18 17:15 Lymphocytes % 18.6 % (20.0-50.0) L 02/07/18 17:15 Monocytes % 6.4 % (2.0-10.0) 02/07/18 17:15 Eosinophils % 2.0 % (0.0-5.0) 02/07/18 17:15 Basophils % 0.3 % (0.0-2.0) 02/07/18 17:15 Sodium 139 mEq/L (136-145) 02/07/18 17:15 Potassium 4.0 mEq/L (3.5-5.1) 02/07/18 17:15 Chloride 108 mEq/L (98-107) H 02/07/18 17:15 Carbon Dioxide 23.8 mEq/L (21.0-31.0) 02/07/18 17:15 Anion Gap 11.2 (7.0-16.0) 02/07/18 17:15 BUN 16 mg/dL (7-25) 02/07/18 17:15 Creatinine 0.8 mg/dL (0.7-1.3) 02/07/18 17:15 Est GFR ( Amer) > 60.0 ml/min (>90) 02/07/18 17:15 Est GFR (Non-Af Amer) > 60.0 ml/min 02/07/18 17:15 BUN/Creatinine Ratio 20.0 02/07/18 17:15 Glucose 102 mg/dL (70-105) 02/07/18 17:15 Hemoglobin A1c % 4.9 % (4.0-6.0) 02/07/18 17:15 Calcium 9.3 mg/dL (8.6-10.3) 02/07/18 17:15 Total Bilirubin 0.6 mg/dL (0.3-1.0) 02/07/18 17:15 AST 14 U/L (13-39) 02/07/18 17:15 ALT 9 U/L (7-52) 02/07/18 17:15 Alkaline Phosphatase 50 U/L (34-104) 02/07/18 17:15 Total Protein 6.7 gm/dL (6.0-8.3) 02/07/18 17:15 Albumin 4.0 gm/dL (4.2-5.5) L 02/07/18 17:15 Globulin 2.7 gm/dL 02/07/18 17:15 Albumin/Globulin Ratio 1.5 (1.0-1.8) 02/07/18 17:15 Triglycerides 72 mg/dL (<150) 02/07/18 17:15 Cholesterol 147 mg/dL (<200) 02/07/18 17:15 LDL Cholesterol Direct 89 mg/dL (75-193) 02/07/18 17:15 HDL Cholesterol 48 mg/dL (23-92) 02/07/18 17:15 TSH 0.99 uIU/ml (0.34-5.60) 02/07/18 17:15 Salicylates < 25.0 mg/L (30.0-100.0) L 02/07/18 17:15 Acetaminophen < 10.0 ug/mL (10.0-30.0) L 02/07/18 17:15 Ethyl Alcohol < 10 mg/dL (0-10) 02/07/18 17:15 RPR NONREACTIVE (NONREACTIVE) 02/07/18 17:15 - Physical Exam Vitals and I&O: Vital Signs Temp 97.1 F 02/10/18 06:33 Pulse 64 02/10/18 09:38 Resp 20 02/10/18 06:33 BP 105/60 02/10/18 09:38 Pulse Ox 97 02/10/18 06:33 Intake & Output 02/09/18 02/10/18 02/10/18 18:59 06:59 18:59 Intake Total 1200 120 Balance 1200 120 Intake: Oral 1200 120 Other: # Voids 3 3 # Bowel Movements 1 Active Medications: Current Medications Acetaminophen (Tylenol) 650 mg PO Q4HR PRN PRN Reason: Mild Pain / Temp above 100 Stop: 04/08/18 19:59 Amlodipine Besylate (Norvasc) 2.5 mg PO DAILY [facility] Stop: 04/09/18 09:59 Last Admin: 02/10/18 09:38 Dose: Not Given Benztropine Mesylate (Cogentin) 2 mg PO BID [facility] Stop: 04/09/18 16:59 Last Admin: 02/10/18 09:38 Dose: 2 mg Bupropion HCl (Wellbutrin Xl) 150 mg PO DAILY [facility]; Protocol Stop: 04/09/18 08:59 Last Admin: 02/10/18 09:39 Dose: 150 mg Docusate Sodium (Colace) 100 mg PO BID [facility] Stop: 04/09/18 16:59 Last Admin: 02/10/18 09:38 Dose: 100 mg Escitalopram Oxalate (Lexapro) 10 mg PO DAILY [facility]; Protocol Stop: 04/09/18 08:59 Last Admin: 02/10/18 09:39 Dose: 10 mg Lorazepam (Ativan) 0.5 mg PO Q4HR PRN; Protocol PRN Reason: Anxiety Stop: 03/09/18 19:59 Last Admin: 02/09/18 20:35 Dose: 0.5 mg Magnesium Hydroxide (Milk Of Magnesia) 30 ml PO DAILY PRN PRN Reason: Constipation Stop: 04/09/18 09:12 Mirtazapine (Remeron) 7.5 mg PO HS [facility]; Protocol Stop: 04/11/18 20:59 Quetiapine Fumarate (Seroquel) 100 mg PO HS [facility]; Protocol Stop: 04/09/18 20:59 Last Admin: 02/09/18 20:35 Dose: 100 mg Zolpidem Tartrate (Ambien) 5 mg PO HS PRN PRN Reason: Insomnia Stop: 04/08/18 19:59 Last Admin: 02/09/18 20:35 Dose: 5 mg General: alert, thin, appears older HEENT: NC/AT, EOMI, anicteric sclerae, other (legally blind on right eye.) Neck: Supple, No JVD, No LAD Lungs: CTAB Cardiovascular: RRR, Normal S1, Normal S2 Abdomen: soft, non-tender, non-distended Extremities: clear Neurological: no change - Procedures Procedures: Procedures Procedure Code Date EMERGENCY DEPT VISIT 81295 10/29/11 GROUP PSYCHOTHERAPY 82346 11/22/15 GROUP PSYCHOTHERAPY GZHZZZZ 11/22/15 GROUP PSYCHOTHERAPY 74524 08/21/15 GROUP PSYCHOTHERAPY [id number] 08/21/15 OTHER GROUP THERAPY 94.44 02/19/15 Internal Medicine Assmt/Plan - Assessment Assessment: Bronchial Asthma. Hypertension. Psych disorder. DJD Fall risk. - Plan Plan: Monitor vitals and lab. Psych meds and follow up. General nursing care. Continue current care. Discussed with staff.
--- NOTE | 2018-02-10 21:33 | Progress Notes ---
DATE: 02/10/2018 Case was discussed with staff of the patient, reviewed records. The patient continues to be internally preoccupied, staying in his room, does not participate much. He continues to appear to be depressed. He continues to not eat much, so I will be adding Remeron to his medication to help with his poor appetite, avoiding increasing the Seroquel since he is not hearing voices. I will not increase the chance of him having EPS or tardive dyskinesia. I ordered already medication for him to be given. He is still unable to formulate a safe plan for self-care. He is generally unpredictable, impulsive, with good insight. I will continue to work with the patient in group therapy, milieu therapy, and adjust the medications as needed. JOB# [id number]
[2018-02-11] MEDS: buPROPion XL 150 mg T 24 H PO SCH (09:12)
[2018-02-11] MEDS: Benztropine 1 MG TAB PO SCH ×2 (09:13→16:31)
[2018-02-11] MEDS: Multivitamin w/ Minerals Tab PO SCH (09:14)
--- NOTE | 2018-02-11 21:04 | Progress Notes ---
DATE: 02/11/2018 Case was discussed with staff of the patient, reviewed records. The patient continues to isolate himself, internally preoccupied, appears to be responding to internal stimuli. Continues to be unpredictable, impulsive, needing redirection. He tolerated adding of the Remeron 7.5 mg at bedtime yesterday. I will be increasing the dose of Seroquel a little bit to help improve his psychotic symptoms. I will make slight adjustment slowly because of his probably tardive dyskinesia and we will continue. He is still unable to make safe plan for self-care. I ordered for the patient medication for tardive dyskinesia 2-3 weeks ago, still pending. We will continue to work with the patient in group therapy, milieu therapy, adjust medication as needed. JOB# [id number]
[2018-02-12] MEDS: Multivitamin w/ Minerals Tab PO SCH (08:37)
[2018-02-12] MEDS: Benztropine 1 MG TAB PO SCH ×2 (08:37→16:30)
[2018-02-12] MEDS: buPROPion XL 150 mg T 24 H PO SCH (08:40)
--- NOTE | 2018-02-13 06:50 | Progress Notes ---
DATE: SUBJECTIVE: The patient was seen and evaluated. The patient's chart reviewed. Covering for Dr. Angulo. IDENTIFYING DATA: A 63-year-old male referred by Gaetano Gibson for increased agitation, resisting care, disorganized, confused, and disruptive behavior. HOSPITAL COURSE AND CURRENT MEDICATION: The patient has been on benztropine 2 mg p.o. b.i.d., Wellbutrin 150 mg a day, Lexapro 10 mg a day, mirtazapine 7.5 mg and Seroquel 150 mg at night time. Nursing staff reporting that the patient at times withdrawn, isolative, and disengaged. Today on [id number] evaluation, the patient continues with liquid diet. Denies any side effects to medications. He is observed to be mildly disorganized, extremely poor historian, unable to elaborate what exactly brought him here, observed to be internally preoccupied and responding. MENTAL STATUS EXAMINATION: Internally preoccupied. ASSESSMENT AND PLAN: The patient continues to respond to internally, tolerate the recent increase of Seroquel and recently augmented medication regimen was to target the patient's severe insomnia. Due to the patient's still active symptoms, he was unable to formulate a plan outside the structured environment. We will continue with the current adjustment per primary medical doctor to target the patient residual disorganized psychotic symptoms. JOB# [id number]
[2018-02-13] MEDS: buPROPion XL 150 mg T 24 H PO SCH (09:03)
[2018-02-13] MEDS: Benztropine 1 MG TAB PO SCH ×2 (09:05→17:41)
[2018-02-13] MEDS: Multivitamin w/ Minerals Tab PO SCH (09:06)
--- NOTE | 2018-02-13 21:01 | Progress Notes ---
DATE: 02/13/2018 The patient was seen and evaluated. The patient's chart reviewed. Overnight nursing staff reported the patient mostly internally preoccupied, disengaged in his room. Today on [id number] evaluation, the patient is isolative, get his sheet over his head, does not want to be interviewed paranoid. MENTAL STATUS EXAMINATION: Paranoid, suspicious. ASSESSMENT AND PLAN: The patient with a history of schizophrenia, tolerating the recent increase of Seroquel, to continue to target the patient residual suspicious behavior. We will continue monitoring. We will continue with primary psychiatrist's treatment plan and goals. JOB# [id number]
[2018-02-14] MEDS: Benztropine 1 MG TAB PO SCH ×2 (09:52→17:49)
[2018-02-14] MEDS: buPROPion XL 150 mg T 24 H PO SCH (09:52)
[2018-02-14] MEDS: Multivitamin w/ Minerals Tab PO SCH (09:53)
--- NOTE | 2018-02-14 22:33 | Progress Notes ---
DATE: 02/14/2018 SUBJECTIVE: Case was discussed with staff of the patient, reviewed records. The patient continues to isolate himself. Continues to have poor insight, unpredictable, impulsive, needing redirection. He does have a history of being paranoid, suspicious. He tolerated the increase in Seroquel with no side effects, no sedation, no nausea, no extrapyramidal symptoms. We are trying to be increasing the dose further to 200 mg at bedtime to help him feel better and so far, he does have some sort of tardive dyskinesia, and no other side effects. We will continue to work with the patient in group therapy, milieu therapy, and adjust the medications as needed. [facility]# [id number]
--- NOTE | 2018-02-15 09:30 | Internal Medicine Prog Note ---
Internal Medicine Subjective - Subjective Patient is:: awake, verbal, interactive, in bed Per staff patient has:: no adverse event, no episodes of fall, eating well, poor appetite Internal Medicine Objective - Results Result Diagrams: 02/07/18 17:15 02/07/18 17:15 Recent Labs: Laboratory Last Values WBC 7.1 Th/cmm (4.8-10.8) 02/07/18 17:15 RBC 4.73 Mil/cmm (3.80-5.80) 02/07/18 17:15 Hgb 13.8 gm/dL (12-16) 02/07/18 17:15 Hct 41.3 % (41.0-60) 02/07/18 17:15 MCV 87.3 fl (80-99) 02/07/18 17:15 MCH 29.3 pg (27.0-31.0) 02/07/18 17:15 MCHC Differential 33.5 pg (28.0-36.0) 02/07/18 17:15 RDW 13.1 % (11.5-20.0) 02/07/18 17:15 Plt Count 256 Th/cmm (150-400) 02/07/18 17:15 MPV 7.8 fl 02/07/18 17:15 Neutrophils % 72.7 % (40.0-80.0) 02/07/18 17:15 Lymphocytes % 18.6 % (20.0-50.0) L 02/07/18 17:15 Monocytes % 6.4 % (2.0-10.0) 02/07/18 17:15 Eosinophils % 2.0 % (0.0-5.0) 02/07/18 17:15 Basophils % 0.3 % (0.0-2.0) 02/07/18 17:15 Sodium 139 mEq/L (136-145) 02/07/18 17:15 Potassium 4.0 mEq/L (3.5-5.1) 02/07/18 17:15 Chloride 108 mEq/L (98-107) H 02/07/18 17:15 Carbon Dioxide 23.8 mEq/L (21.0-31.0) 02/07/18 17:15 Anion Gap 11.2 (7.0-16.0) 02/07/18 17:15 BUN 16 mg/dL (7-25) 02/07/18 17:15 Creatinine 0.8 mg/dL (0.7-1.3) 02/07/18 17:15 Est GFR ( Amer) > 60.0 ml/min (>90) 02/07/18 17:15 Est GFR (Non-Af Amer) > 60.0 ml/min 02/07/18 17:15 BUN/Creatinine Ratio 20.0 02/07/18 17:15 Glucose 102 mg/dL (70-105) 02/07/18 17:15 Hemoglobin A1c % 4.9 % (4.0-6.0) 02/07/18 17:15 Calcium 9.3 mg/dL (8.6-10.3) 02/07/18 17:15 Total Bilirubin 0.6 mg/dL (0.3-1.0) 02/07/18 17:15 AST 14 U/L (13-39) 02/07/18 17:15 ALT 9 U/L (7-52) 02/07/18 17:15 Alkaline Phosphatase 50 U/L (34-104) 02/07/18 17:15 Total Protein 6.7 gm/dL (6.0-8.3) 02/07/18 17:15 Albumin 4.0 gm/dL (4.2-5.5) L 02/07/18 17:15 Globulin 2.7 gm/dL 02/07/18 17:15 Albumin/Globulin Ratio 1.5 (1.0-1.8) 02/07/18 17:15 Triglycerides 72 mg/dL (<150) 02/07/18 17:15 Cholesterol 147 mg/dL (<200) 02/07/18 17:15 LDL Cholesterol Direct 89 mg/dL (75-193) 02/07/18 17:15 HDL Cholesterol 48 mg/dL (23-92) 02/07/18 17:15 TSH 0.99 uIU/ml (0.34-5.60) 02/07/18 17:15 Salicylates < 25.0 mg/L (30.0-100.0) L 02/07/18 17:15 Acetaminophen < 10.0 ug/mL (10.0-30.0) L 02/07/18 17:15 Ethyl Alcohol < 10 mg/dL (0-10) 02/07/18 17:15 RPR NONREACTIVE (NONREACTIVE) 02/07/18 17:15 - Physical Exam Vitals and I&O: Vital Signs Temp 98.2 F 02/15/18 06:55 Pulse 65 02/15/18 06:55 Resp 19 02/15/18 06:55 BP 108/67 02/15/18 06:55 Pulse Ox 96 02/15/18 06:55 Intake & Output 02/14/18 02/15/18 02/15/18 18:59 06:59 18:59 Intake Total 1500 180 Output Total 1 Balance 1500 179 Intake: Oral 1500 180 Output: Urine/Stool Mix 1 Other: # Voids 4 1 # Bowel Movements 0 Active Medications: Current Medications Acetaminophen (Tylenol) 650 mg PO Q4HR PRN PRN Reason: Mild Pain / Temp above 100 Stop: 04/08/18 19:59 Amlodipine Besylate (Norvasc) 2.5 mg PO DAILY [facility] Stop: 04/09/18 09:59 Last Admin: 02/14/18 09:53 Dose: 2.5 mg Benztropine Mesylate (Cogentin) 2 mg PO BID SHERRY Stop: 04/09/18 16:59 Last Admin: 02/14/18 17:49 Dose: 2 mg Bupropion HCl (Wellbutrin Xl) 150 mg PO DAILY [facility]; Protocol Stop: 04/09/18 08:59 Last Admin: 02/14/18 09:52 Dose: 150 mg Docusate Sodium (Colace) 100 mg PO BID SHERRY Stop: 04/09/18 16:59 Last Admin: 02/14/18 17:48 Dose: 100 mg Escitalopram Oxalate (Lexapro) 10 mg PO DAILY [facility]; Protocol Stop: 04/09/18 08:59 Last Admin: 02/14/18 09:52 Dose: 10 mg Lorazepam (Ativan) 0.5 mg PO Q4HR PRN; Protocol PRN Reason: Anxiety Stop: 03/09/18 19:59 Last Admin: 02/14/18 20:45 Dose: 0.5 mg Magnesium Hydroxide (Milk Of Magnesia) 30 ml PO DAILY PRN PRN Reason: Constipation Stop: 04/09/18 09:12 Mirtazapine (Remeron) 7.5 mg PO HS [facility]; Protocol Stop: 04/11/18 20:59 Last Admin: 02/14/18 20:44 Dose: 7.5 mg Quetiapine Fumarate (Seroquel) 200 mg PO HS [facility]; Protocol Stop: 04/15/18 20:59 Last Admin: 02/14/18 20:44 Dose: 200 mg Senna (Senna) 8.6 mg PO BID SHERRY Stop: 04/15/18 11:29 Last Admin: 02/14/18 17:49 Dose: 8.6 mg Zolpidem Tartrate (Ambien) 5 mg PO HS PRN PRN Reason: Insomnia Stop: 04/08/18 19:59 Last Admin: 02/14/18 20:45 Dose: 5 mg General: alert, thin, appears older HEENT: NC/AT, EOMI, anicteric sclerae, other (legally blind on right eye.) Neck: Supple, No JVD, No LAD Lungs: CTAB Cardiovascular: RRR, Normal S1, Normal S2 Abdomen: soft, non-tender, non-distended Extremities: clear Neurological: no change - Procedures Procedures: Procedures Procedure Code Date EMERGENCY DEPT VISIT 16446 10/29/11 GROUP PSYCHOTHERAPY 03771 11/22/15 GROUP PSYCHOTHERAPY GZHZZZZ 11/22/15 GROUP PSYCHOTHERAPY 37597 08/21/15 GROUP PSYCHOTHERAPY GZHZZZZ 08/21/15 OTHER GROUP THERAPY 94.44 02/19/15 Internal Medicine Assmt/Plan - Assessment Assessment: Bronchial Asthma. Hypertension. Psych disorder. DJD Fall risk. - Plan Plan: Monitor vitals and lab. Psych meds and follow up. General nursing care. Continue current care. Discussed with staff. Nutritional Asmnt/Malnutr-PDOC - Dietary Evaluation Malnutrition Findings (Please click <Entered> for more info): Nutritional Asmnt/Malnutrition Start: 02/10/18 15: 30 Text: Status: Complete Freq: Protocol: Document 02/10/18 15:30 LCHENG (Rec: 02/10/18 16:05 [id number] [email or web address]) Nutritional Asmnt/Malnutrition Patient General Information Nutritional Screening Low Risk Diagnosis mayor depression Pertinent Medical Hx/Surgical Hx HTN, asthma, DJD, legally blindness, psychiatric disorder Subjective Information Pt seen lying in bed at time of visit. Pt passed swallow eval with pureed thin liquid on 6/13. Per nurse, pt is blind, need assistance with feeding. Pt is tolerating pureed diet, eats slowly. Per EMR, PO intake 75-100%. Current Diet Order/ Nutrition Support pureed Pertinent Medications colace, remeron, seroquel Pertinent Labs 02/07 Cl 108, glucose 102, A1c 4.9, Alb 4.0 Nutritional Hx/Data Height 1.8 m Height (Calculated Centimeters) 180.3 Current Weight (lbs) 77.111 kg Weight (Calculated Kilograms) 77.1 Weight (Calculated Grams) 80410.7 Stuart Body Weight 172 Body Mass Index (BMI) 23.7 Weight Status Approriate GI Symptoms GI Symptoms None Last BM 02/09 Difficult in: None Skin Integrity/Comment: intact Current %PO Good (75-100%) Estimated Nutritional Goals BEE in Kcals: Using Current wt Calories/Kcals/Kg 25-30 Kcals Calculated 4307-8896 Protein g/k.8 Protein Calculated 62 Fluid: ml 1925-2310ml (1ml/kcal) Nutritional Problem No current Nutrition Prob Problem N/A Malnutrition Alert Is there a minimum of two criteria No selected? Query Text:Check all the applicable criteria. A minimum of two criteria are recommended for diagnosis of either severe or non-severe malnutrition. Malnutrition Related to Morbid Obesity Malnutrition related to morbid obesity No Intervention/Recommendation Comments 1. Continue with pureed diet as ordered. 2. Monitor PO intake, wt, labs and skin integrity 3. F/U as low risk in 7 days, 02/17 Expected Outcomes/Goals Expected Outcomes/Goals 1. PO intake to meet at least 75% of nutritional needs. 2. Wt stability, skin to remain intact, labs to approach WNL.
[2018-02-15] MEDS: buPROPion XL 150 mg T 24 H PO SCH (12:31)
[2018-02-15] MEDS: Benztropine 1 MG TAB PO SCH ×2 (12:31→17:32)
[2018-02-15] MEDS: Multivitamin w/ Minerals Tab PO SCH (12:34)
--- NOTE | 2018-02-15 21:44 | Progress Notes ---
DATE: 02/15/2018 SUBJECTIVE: Case was discussed with staff of the patient, reviewed records. The patient continues to isolate himself, staying in his room. Continues to be internally preoccupied. Continues to be unable to make safe plan for self-care. Continues to be unpredictable and impulsive. Continues to be depressed at times. He is sleeping well and eating well. No side effects to the medication, no sedation, and no nausea. However, does have tardive dyskinesia, we are trying to get a medication for it. We will continue to work with the patient in group therapy, milieu therapy, and adjust medications as needed. JOB# [id number]
--- NOTE | 2018-02-16 05:19 | Progress Notes ---
DATE: PATIENT'S IDENTIFYING DATA: A 63-year-old male. SUBJECTIVE: The patient is seen and examined. The patient is lying in the bed. The patient denies any chest pain, shortness of breath, palpitation, dizziness, nausea, vomiting. OBJECTIVE: VITAL SIGNS: See nurse's note. 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 NECK: Supple, no JVD. HEART: Regular. CHEST AND LUNG: Equal in expansion. No wheezing, no crackles. ABDOMEN: Soft. No guarding, no rigidity. Bowel sounds present. No palpable mass. EXTREMITIES: No edema. NEUROLOGIC: Decreased power throughout of the upper and lower extremities. CLINICAL IMPRESSION: 1. Bronchial asthma. 2. Hypertension. 3. Psychotic disorder. 4. DJD. 5. Fecal impaction. 6. Old granuloma . 7. Fall risk. PLAN: 1. Continue anti-constipation medication. 2. Antihypertensive medicine. 3. Psych medication. 4. Psych followup. 5. . 6. General nursing care. 7. We will continue to follow this patient during the stay in the hospital. JOB# [id number]
[2018-02-16] MEDS: buPROPion XL 150 mg T 24 H PO SCH (08:17)
[2018-02-16] MEDS: Multivitamin w/ Minerals Tab PO SCH (08:17)
[2018-02-16] MEDS: Benztropine 1 MG TAB PO SCH ×2 (08:17→18:00)
--- NOTE | 2018-02-16 16:36 | Progress Notes ---
DATE: 02/16/2018 Case was discussed with staff of the patient, reviewed records. The patient continues to do the same. He is in his room, isolating himself. He is legally blind. He continues to be internally preoccupied; however, he was feeding himself today, so there is some progress in his feeding. He continues to at times hear voices, but he denies having any command hallucination. He is sleeping better, continues to have episodes of agitation, irritability, besides tardive dyskinesia. No other side effects. I did increase Seroquel dose yesterday to 200 mg at bedtime. No sedation, no nausea and we will continue outpatient group therapy, milieu therapy, adjust medication as needed. JOB# [id number]
--- NOTE | 2018-02-16 16:37 | Progress Notes ---
DATE: 02/14/2018 PATIENT'S IDENTIFICATION: A 63-year-old male. SUBJECTIVE: The patient was seen and examined. The patient is lying in the bed. The patient denies any chest pain, increasing shortness of breath, palpitation, dizziness, nausea or vomiting. OBJECTIVE: On exam: VITAL SIGNS: See nurse's note. HEENT: Poor dentition. NECK: Supple. ____ ASSESSMENT: ____ 5. Psychotic disorder. 6. General nursing care. PLAN: 1. Anticonstipation medications. 2. Follow up nodules as an outpatient. 3. Monitor blood pressure. 4. Psych medication. 5. Psych followup ____. JOB# [id number]
[2018-02-17] MEDS: buPROPion XL 150 mg T 24 H PO SCH (09:55)
[2018-02-17] MEDS: Benztropine 1 MG TAB PO SCH ×2 (09:55→17:10)
[2018-02-17] MEDS: Multivitamin w/ Minerals Tab PO SCH (09:55)
--- NOTE | 2018-02-17 21:55 | Progress Notes ---
DATE: 02/17/2018 SUBJECTIVE: Case was discussed with staff of the patient, reviewed records. The patient continues to be isolating himself. The patient continues to be unpredictable, impulsive, needing redirection, continues to have poor insight. He was staying to himself mostly. He is sleeping well. He is feeding himself. No side effects with the medication, no sedation, no nausea, no extrapyramidal symptoms. We will continue the patient in group therapy, milieu therapy, adjust medication as needed. JOB# [id number]
--- NOTE | 2018-02-18 03:31 | Progress Notes ---
DATE: 02/17/2018 IDENTIFICATION: A 63-year-old male. SUBJECTIVE: The patient is seen and examined. The patient is lying in the bed. The patient has no new complaints. Nurse's note has been reviewed. Discussed with them about the patient's care as well. PHYSICAL EXAMINATION: VITAL SIGNS: Temperature 98.6, pulse 74, respiratory rate 18, and blood pressure 130/80. HEENT: No facial asymmetry. NECK: Supple, no JVD. HEART: Regular. CHEST: Lungs are equal in expansion. LUNGS: No wheezing and no crackles. ABDOMEN: Soft. No guarding and no rigidity. Bowel sounds are present. No palpable mass. EXTREMITIES: No edema. CLINICAL IMPRESSION: 1. Hypertension. 2. Fecal impaction. 3. Psychotic disorder. 4. Bronchial asthma. 5. Degenerative joint disease. 6. Old granuloma by chest x-ray. 7. Fall risk. PLAN: 1. PRN inhaler. 2. Antihypertensive medicine. 3. Psych followup. 4. Anticonstipation medication. 5. General nursing care. 6. Fall precautions. 7. Follow up on lab. 8. We will continue to follow this patient during the stay in the hospital. JOB# [id number]
[2018-02-18] MEDS: Benztropine 1 MG TAB PO SCH ×2 (08:25→16:17)
[2018-02-18] MEDS: Multivitamin w/ Minerals Tab PO SCH (08:35)
[2018-02-18] MEDS: buPROPion XL 150 mg T 24 H PO SCH (08:35)
--- NOTE | 2018-02-18 16:12 | Progress Notes ---
DATE: 02/18/2018 SUBJECTIVE: Case was discussed with staff, reviewed records. The patient continues to stay in bed, continues to have poor insight, continuous to be unpredictable, impulsive. The patient ____, mostly. No side effects with the medication, no sedation, no nausea, no extrapyramidal symptoms and will continue to work with the patient in group therapy, milieu therapy, and adjust the medication as needed. JOB# [id number]
[2018-02-19] MEDS: Benztropine 1 MG TAB PO SCH ×2 (08:21→16:26)
[2018-02-19] MEDS: Multivitamin w/ Minerals Tab PO SCH (08:21)
[2018-02-19] MEDS: buPROPion XL 150 mg T 24 H PO SCH (08:22)
--- NOTE | 2018-02-19 17:47 | Progress Notes ---
DATE: 02/19/2018 IDENTIFICATION: This is a 63-year-old male. DATE OF EVALUATION: 02/19/2018 SUBJECTIVE: The patient seen and examined. The patient is lying in the bed. The patient has no new complaint. Discussed with nursing staff about their concerns as well. The patient is able to eat well. VITAL SIGNS: Temperature 97.4, pulse is 80, respiratory rate is 18, blood pressure 120/74. HEENT: Absent upper and lower dentition. NECK: Supple, no JVD. HEART: Regular. CHEST: Lungs equal in expansion, no wheezing, no crackles. ABDOMEN: Soft. No guarding or rigidity. Bowel sounds present. No palpable mass. EXTREMITIES: No edema. CLINICAL IMPRESSION: 1. Hypertension. 2. Fecal impaction. 3. Psychotic disorder. 4. Degenerative disc disease. 5. History of bronchial asthma. 6. High risk for fall. PLAN: 1. Fall precautions. 2. Antihypertensive medicine. 3. Psych medication. 4. General nursing care. 5. Symptoms management. 6. Avoid constipation. 7. Continue to provide nutritional support. 8. Care plan reviewed and discussed. JOB# [id number]
--- NOTE | 2018-02-19 19:56 | Progress Notes ---
DATE: Dr. Starkey is covering for Dr. Angulo. SUBJECTIVE: Chart reviewed and the patient interviewed. Also discussed the patient's condition with the staff and reviewed records and labs. The patient is legally blind. The patient also is still actively hallucinating. When I went to talk to him in his room, the patient was talking to himself and talking to imaginary objects and was holding and pointing with his hand to imaginary objects. The patient also is still agitated, but decreased aggressive behavior. ASSESSMENT: The patient is still depressed and psychotic. TREATMENT PLAN: We will continue to monitor his behavior. Also, continue Lexapro, Remeron and Seroquel same dose and will continue to follow up. [facility]# [id number]
[2018-02-20] MEDS: Multivitamin w/ Minerals Tab PO SCH (09:09)
[2018-02-20] MEDS: buPROPion XL 150 mg T 24 H PO SCH (09:09)
[2018-02-20] MEDS: Benztropine 1 MG TAB PO SCH ×2 (09:12→16:39)
[2018-02-21] MEDS: Benztropine 1 MG TAB PO SCH ×2 (09:43→17:41)
[2018-02-21] MEDS: Multivitamin w/ Minerals Tab PO SCH (09:43)
[2018-02-21] MEDS: buPROPion XL 150 mg T 24 H PO SCH (09:43)
--- NOTE | 2018-02-21 23:13 | Progress Notes ---
DATE: 02/20/2018 SUBJECTIVE: Chart reviewed and the patient interviewed. Also discussed the patient's condition with the staff and reviewed records and labs. The patient is still easily agitated and he is still actively hallucinating and talking to himself in his room. The patient also is still depressed and he had been talking to imaginary objects and responding to stimuli. The patient also is making noise while he is alone in his room. The patient is preoccupied and restless. On the other hand, the patient seems to be slightly less agitated. ASSESSMENT: The patient is still depressed and psychotic. TREATMENT PLAN: We will continue on Lexapro, Seroquel, Wellbutrin, and Remeron. Also, continue to work on his psychosis and adjust the psychotropic medications. Also, work on behavioral modification. JOB# [id number]
--- NOTE | 2018-02-21 23:28 | Progress Notes ---
DATE: 02/21/2018 SUBJECTIVE: The patient seen and examined. The patient is lying in the bed with no new event noted. The patient is eating okay. No new complaints. OBJECTIVE: VITAL SIGNS: Temperature 97.6, pulse 60, respiratory rate 18, blood pressure 114/78. HEENT: No facial asymmetry. Multiple absent teeth noted. NECK: Supple. No JVD. HEART: Regular. CHEST AND LUNG: Equal in expansion, no wheezing, no crackles. ABDOMEN: Soft. No guarding, no rigidity. Bowel sounds present. No palpable mass. EXTREMITIES: No edema. CLINICAL IMPRESSION: 1. Bronchial asthma. 2. Hypertension. 3. Degenerative joint disease. 4. Fecal impaction. 5. Psychotic disorder. 6. High risk for fall. PLAN: 1. Antihypertensive medicine. 2. Anticonstipation medication. 3. Psych medication. 4. Psych followup. 5. P.r.n. inhalation therapy. 6. General nursing care. 7. Fall precautions. 8. We will follow this patient during the stay in the hospital. JOB# [id number]
--- NOTE | 2018-02-22 02:47 | Progress Notes ---
DATE: 02/21/2018 Case was discussed with staff of the patient, reviewed records. The patient continues to be talking to himself. He reports hearing voices today, they are not command hallucination. Continues to have poor insight, continues to be unable to make safe plan for self-care, unpredictable, impulsive, needing redirection. He continues to look disheveled. He is incontinent of urine. He does have no so we can start him on medication for tardive dyskinesia. He has been compliant with the medication with no side effects, no sedation, no nausea, no extrapyramidal symptoms. I will be increasing his Seroquel to 250 mg at bedtime to help improve his psychotic symptoms. The patient is legally blind with a high fall risk. No side effects with the medication, no sedation, no nausea, no extrapyramidal symptoms. We will continue outpatient group therapy, milieu therapy, and adjust medications as needed. JOB# [id number]
[2018-02-22] MEDS: Multivitamin w/ Minerals Tab PO SCH (09:21)
[2018-02-22] MEDS: buPROPion XL 150 mg T 24 H PO SCH (09:21)
[2018-02-22] MEDS: Benztropine 1 MG TAB PO SCH ×2 (09:21→17:23)
--- NOTE | 2018-02-23 00:17 | Progress Notes ---
DATE: 02/22/2018 Case was discussed with staff of the patient, reviewed records. The patient continues to be internally preoccupied, depressed, unpredictable, impulsive, needing redirection. He is not eating very well. He can feed himself. He still appears to be depressed. He reported the hallucinations are not as prominent. He does have abnormal movements of upper part of the body. He will be started on medication for that soon when he goes back to the nursing facility as I do not have it here at the hospital formulary. His lab work showed CBC with low lymphocyte, the rest within normal range. Chemistry panel with high chloride and low albumin, the rest within normal range. TSH within normal range and RPR nonreactive. No side effects, and we will continue to work with the patient in group therapy, milieu therapy, and adjust the medications as needed. JOB# [id number]
--- NOTE | 2018-02-23 07:06 | Progress Notes ---
DATE: 02/22/2018 PATIENT'S IDENTIFICATION: A 63-year-old. SUBJECTIVE: The patient seen and examined. The patient is lying in the bed, no new event. Discussed with nursing staff about their treatment plan and concern. OBJECTIVE: On exam, VITAL SIGNS: Temperature 97.8, pulse is 66, respiratory rate is 18, blood pressure 140/70. HEENT: No facial asymmetry. NECK: Supple, no JVD, no lymphadenopathy or thyromegaly. HEART: Regular. CHEST AND LUNG: Equal in expansion, no wheezing. ABDOMEN: Soft. No guarding, no rigidity. Bowel sounds are present. No palpable mass. EXTREMITIES: No edema. NEUROLOGIC: Alert, awake, follows command. Low sodium diet. Continue antihypertensive medicine. Avoid anti-constipation medication. CLINICAL IMPRESSION: 1. Hypertension. 2. Fecal impaction. 3. Bronchial asthma. 4. Degenerative joint disease. 5. Fall risk. 6. Psychotic disorder. 7. Old granuloma by chest x-ray. PLAN: 1. Monitor blood pressure. 2. Antihypertensive medicine. 3. Anticonstipation medication. 4. General nursing care. 5. Symptoms management. 6. Medication management. 7. Fall precaution. 8. Care plan reviewed and discussed with staff. JOB# [id number]
[2018-02-23] MEDS: buPROPion XL 150 mg T 24 H PO SCH (09:45)
[2018-02-23] MEDS: Benztropine 1 MG TAB PO SCH ×2 (09:46→17:37)
[2018-02-23] MEDS: Multivitamin w/ Minerals Tab PO SCH (09:46)
--- NOTE | 2018-02-23 10:35 | Progress Notes ---
DATE: 02/23/2018 Case was discussed with staff of the patient, reviewed records. The patient continues to isolate himself here. The staff report, they watched him talking to himself all day. He continues to be unpredictable, impulsive, needing redirection. He sleeps well. He is feeding himself more. He continues to be internally preoccupied. He is legally blind. Unable to participate. Unable to make safe plan for self-care. However, he is compliant with the medication with no side effects, no sedation, no nausea. He does have tardive dyskinesia that is probably because of long-term exposure to antipsychotic and has been on it for years and he will be started on Risperdal when he leaves this facility. I will be increasing his Seroquel dose to 300 mg at bedtime and we will continue to work with the patient in group therapy, milieu therapy, and adjust the medication as needed. JOB# [id number]
[2018-02-24] MEDS: Benztropine 1 MG TAB PO SCH ×2 (09:35→17:15)
[2018-02-24] MEDS: Multivitamin w/ Minerals Tab PO SCH (09:35)
[2018-02-24] MEDS: buPROPion XL 150 mg T 24 H PO SCH (09:37)
--- NOTE | 2018-02-24 21:37 | Progress Notes ---
DATE: 02/24/2018 Case was discussed with staff of the patient, reviewed records. The patient tolerated the increase in his Seroquel to 300 mg at bedtime. He is sleeping better. He is eating better. He sits isolating himself, talking to himself at times, depressed, unpredictable, impulsive; however, I am not sure this could be his basic level of functioning and do plan to discharge him tomorrow unless he starts acting in anyway dangerous and he does have tardive dyskinesia and will be treated when he goes to this facility. We will continue outpatient group therapy, milieu therapy, and adjust medications as needed. JOB# [id number]
[2018-02-25] MEDS: buPROPion XL 150 mg T 24 H PO SCH (08:43)
[2018-02-25] MEDS: Multivitamin w/ Minerals Tab PO SCH (08:43)
[2018-02-25] MEDS: Benztropine 1 MG TAB PO SCH ×2 (08:44→16:10)
--- NOTE | 2018-02-26 03:08 | Discharge Summary ---
DATE OF DISCHARGE: 02/25/2018 IDENTIFYING INFORMATION: The patient is a 63-year-old male. CHIEF COMPLAINT: No answer. HISTORY OF PRESENT ILLNESS: The patient was referred from [place] because of increased agitation, resisting care, disorganized, confused, disruptive, not eating much, and weak. The patient himself is a poor historian, unable to tell me the date, where he is, why he is here, internally preoccupied. He is a well-known patient, I have seen him for years at [place] and multiple prior admissions to this facility and other facility because of psychosis. COURSE IN THE HOSPITAL: The patient was continued with the Seroquel and increased the dose over the course of his stay to 300 mg at bedtime. The patient also was kept on the Lexapro 10 mg a day, was kept on amlodipine 2.5 mg daily and Cogentin 2 mg twice a day, bupropion 150 mg daily and the patient also was added Remeron 7.5 mg at bedtime and increased ____ to help with his lack of appetite, multivitamins, ____ twice a day at bedtime. The patient progressively got better. He does have tardive dyskinesia and tried to get a medication ready for him when [facility] to a [facility]. It not available on the floor here. The patient improved. He was no longer acting. He was feeding himself. He was sleeping well, eating well. He was not acting anyway dangerous to himself. We felt he could be managed at a lower level of care. FINAL DIAGNOSIS: AXIS I: Schizoaffective disorder. MEDICAL DIAGNOSES: The patient is legally blind. The patient has tardive dyskinesia. We will deferred to the medical doctor. The patient will follow up with the psychiatrist and primary care physician. EXPECTED OUTCOME: Stable if the patient complies with the above. [facility]# [id number]
== END 2018-02-25 19:00 | DRG 885 ==
LOC: ER 16:53 → GERO 19:43 → GERO2 02-08 09:36 → GERO 02-08 09:54
PROVIDERS: ADMIT Psychiatry & Neurology Psychiatry; ATTEND Psychiatry & Neurology Psychiatry
DX: F25.9 Schizoaffective disorder, unspecified (principal); F29 Unspecified psychosis not due to a substance or known physiological condition; I10 Essential (primary) hypertension; M19.90 Unspecified osteoarthritis, unspecified site; H54.61 Unqualified visual loss, right eye, normal vision left eye; J44.9 Chronic obstructive pulmonary disease, unspecified; E78.5 Hyperlipidemia, unspecified; F03.90 Unspecified dementia, unspecified severity, without behavioral disturbance, psychotic disturbance, mood disturbance, and anxiety; G24.01 Drug induced subacute dyskinesia; T50.905A Adverse effect of unspecified drugs, medicaments and biological substances, initial encounter; Y92.89 Other specified places as the place of occurrence of the external cause; K56.41 Fecal impaction; Z88.8 Allergy status to other drugs, medicaments and biological substances; Z82.49 Family history of ischemic heart disease and other diseases of the circulatory system; Z91.81 History of falling
CPT/HCPCS: 36415-UA; 71045-TC; 71250-TC; 80053-TC; 80061-TC; 80320-TC; 80329-TC; 83036-90; 84443-TC; 85025-TC; 86592-TC; 93005; X3401; X4304; Z7610

== ENCOUNTER 2018-05-03 15:21 | Emergency (ER) | payer MEDICARE, MEDICAID ==
--- NOTE | 2018-05-03 16:18 | ED Physician Chart ---
ED Chief Complaint/HPI - Patient Information Date Seen:: 05/03/18 Time Seen:: 16:15 Chief Complaint:: failure to thrive History of Present Illness:: bipolar paranoid schizophrenia psychosis anxiety Allergies:: Allergies Allergy/AdvReac Type Severity Reaction Status Date / Time fluphenazine Allergy Verified 02/07/18 17:00 prolixin Allergy Uncoded 11/22/15 16:40 Vitals:: Vital Signs - 8 hr 05/03/18 15:52 Temp 98.9 F HR 74 RR 16 BP 124/74 O2 Sat % 96 ED Review of Systems - Review of Systems General/Constitutional: No fever, No chills, No weight loss, No weakness, No diaphoresis, No edema, No loss of appetite Skin: No skin lesions, No rash, No bruising Head: No headache, No light-headedness Eyes: No loss of vision, No pain, No diplopia ENT: No earache, No nasal drainage, No sore throat, No tinnitus Neck: No neck pain, No swelling, No thyromegaly, No stiffness, No mass noted Cardio Vascular: No chest pain, No palpitations, No PND, No orthopnea, No edema Pulmonary: No SOB, No cough, No sputum, No wheezing GI: No nausea, No vomiting, No diarrhea, No pain, No melena, No hematochezia, No constipation, No hematemesis G/U: No dysuria, No frequency, No hematuria Musculoskeletal: No bone or joint pain, No back pain, No muscle pain Endocrine: No polyuria, No polydipsia Psychiatric: No prior psych history, No depression, No anxiety, No suicidal ideation Hematopoietic: No bruising, No lymphadenopathy Allergic/Immuno: No urticaria, No angioedema Neurological: No syncope, No focal symptoms, No weakness, No paresthesia, No headache, No seizure, No dizziness, No confusion, No vertigo ED Past Medical History - Past Medical History Past Medical History: Other (bipolar paranoid schizophrenia anxiety psychosis) Family Medical History - Family Member Mother History Unknown: Yes Ethnicity: Unknown Living Status: Unknown Hx Family Cancer: (Unknown) Hx Family Coronary Artery Disease: (Unknown) Hx Family Congestive Heart Failure: (Unknown) Hx Family Hypertension: (Unknown) Hx Family Stroke: (Unknown) Hx Family Diabetes: (Unknown) Hx Family Seizures: (Unknown) Hx Family Dementia: (Unknown) Hx Family AIDS: (Unknown) Hx Family HIV: No Hx Family COPD: (Unknown) Hx Family Hepatitis: (Unknown) Hx Family Psychiatric Problems: (Unknown) Hx Family Tuberculosis: (Unknown) Father History Unknown: Yes Ethnicity: Unknown Living Status: Unknown Hx Family Hypertension: Yes Hx Family Psychiatric Problems: Yes ED Physical Exam - Physical Examination General/Constitutional: Awake, Well-developed, well-nourished, Alert, No distress, GCS 15, Non-toxic appearing, Ambulatory Head: Atraumatic Eyes: Lids, conjuctiva normal, PERRL, EOMI Skin: Nl inspection, No rash, No skin lesions, No ecchymosis, Well hydrated, No lymphadenopathy ENMT: External ears, nose nl, Nasal exam nl, Lips, teeth, gums nl Neck: Nontender, Full ROM w/o pain, No JVD, No nuchal rigidity, No bruit, No mass, No stridor Respiratory: Nl effort/Exclusion, Clear to Auscultation, No Wheeze/Rhonchi/Rales Cardio Vascular: RRR, No murmur, gallop, rubs, NL S1 S2 GI: No tenderness/rebounding/guarding, No organomegaly, No hernia, Normal BS's, Nondistended, No mass/bruits, No McBurney tenderness : No CVA tenderness Extremities: No tenderness or effusion, Full ROM, normal strength in all extremities, No edema, Normal digits & nails Neuro/Psych: Alert/oriented, DTR's symmetric, Normal sensory exam, Normal motor strength, Judgement/insight normal, Mood normal, Normal gait, No focal deficits Misc: Normal back, No paraspinal tenderness ED Assessment - Assessment General Assessment: failure to thrive ED Septic Shock - . Is Septic Shock (SBP<90, OR Lactate>4 mmol\L) present?: No - <6hrs of presentation: Vital Signs: Vital Signs - 8 hr 05/03/18 15:52 Temp 98.9 F HR 74 RR 16 BP 124/74 O2 Sat % 96 ED Reassessment (Disposition) - Diagnosis Diagnosis:: failure to thrive - Patient Disposition Discharge/Transfer:: Acute Care w/in this hosp Condition at Disposition:: Unchanged
[2018-05-03 16:35] LABS: % BASOPHILS 0.1 % (0.0-2.0); % EOSINOPHILS 1.7 % (0.0-5.0); % LYMPHOCYTES 21.5 % (20.0-50.0); % MONOCYTES 7.1 % (2.0-10.0); % NEUTROPHILS 69.6 % (40.0-80.0); EOSINOPHILE ABSOLUTE 0.1 Th/cmm (0.1-0.4); HEMATOCRIT 41.9 % (41.0-60); HEMOGLOBIN 14.1 gm/dL (12-16); LYMPHOCYTE ABSOLUTE 1.4 Th/cmm (1.5-3.0); MEAN CELL VOLUME 86.1 fl (80-99); MEAN CORPUSCULAR HGB CONC 33.7 pg (28.0-36.0); MEAN PLATELET VOLUME 8.2 fl; MONOCYTE ABSOLUTE 0.5 Th/cmm (0.3-1.0); NEUTROPHILE ABSOLUTE 4.4 Th/cmm (1.8-8.0); PLATELET COUNT 243 Th/cmm (150-400); RED BLOOD COUNT 4.86 Mil/cmm (3.80-5.80); RED CELL DISTRIBUTION WIDTH 13.5 % (11.5-20.0); WHITE BLOOD COUNT 6.4 Th/cmm (4.8-10.8)
[2018-05-03 17:10] LABS: TROP I < 0.01 ng/mL (0.01-0.05)
[2018-05-03 17:16] LABS: ALB/GLOB RATIO 1.3 (1.0-1.8); ALBUMIN 3.9 gm/dL (4.2-5.5); ALKALINE PHOSPHATASE 77 U/L (34-104); ANION GAP 11.8 (7.0-16.0); BILIRUBIN,TOTAL 0.5 mg/dL (0.3-1.0); BUN - UREA NITROGEN 19 mg/dL (7-25); CALCIUM SERUM 9.5 mg/dL (8.6-10.3); CARBON DIOXIDE 27.1 mEq/L (21.0-31.0); CHLORIDE 113 mEq/L (98-107); CREATININE - SERUM 0.8 mg/dL (0.7-1.3); GFR AFRICAN-AMERICAN > 60.0 ml/min (>90); GFR NON AFRICAN-AMERICAN > 60.0 ml/min; GLUCOSE 89 mg/dL (70-105); POTASSIUM SERUM 3.9 mEq/L (3.5-5.1); SGOT 12 U/L (13-39); SGPT/ALT 10 U/L (7-52); SODIUM SERUM 148 mEq/L (136-145); TOTAL PROTEIN,SERUM 6.8 gm/dL (6.0-8.3)
== END 2018-05-03 19:00 ==
LOC: ER 15:21
DX: R62.7 Adult failure to thrive (principal); F20.0 Paranoid schizophrenia; F41.9 Anxiety disorder, unspecified; F29 Unspecified psychosis not due to a substance or known physiological condition; Z88.8 Allergy status to other drugs, medicaments and biological substances
CPT/HCPCS: 36415-UA; 80053-TC; 83605; 84484-TC; 85025-TC; 93005

== ENCOUNTER 2018-05-05 13:00 | Inpatient (IN) | payer MEDICARE, MEDICAID ==
--- NOTE | 2018-05-05 13:18 | ED Physician Chart ---
ED Chief Complaint/HPI - Patient Information Date Seen:: 05/05/18 Time Seen:: 13:00 Chief Complaint:: agitation History of Present Illness:: Patient has been exhibiting increased agitation at his nursing home facility. Patient was sent here night before last for medical clearance to be admitted to [facility]. Laboratory abnormalities at that time were sodium 148 and and a chloride of 113. He was medically cleared at that time but there were no beds in [facility]. Because of the abnormalities in the electrolytes a basic metabolic panel will be done and an EKG will also be done. Allergies:: Allergies Allergy/AdvReac Type Severity Reaction Status Date / Time fluphenazine Allergy Verified 02/07/18 17:00 prolixin Allergy Uncoded 11/22/15 16:40 Historian:: Patient, EMS Review:: Transfer documents Reviewed ED Review of Systems - Review of Systems General/Constitutional: No fever, No chills, No weight loss, No weakness, No diaphoresis, No edema, No loss of appetite Skin: No skin lesions, No rash, No bruising Head: No headache, No light-headedness Eyes: No pain, No diplopia ENT: No earache, No nasal drainage, No sore throat, No tinnitus Neck: No neck pain, No swelling, No thyromegaly, No stiffness, No mass noted Cardio Vascular: No chest pain, No palpitations, No PND, No orthopnea, No edema Pulmonary: No SOB, No cough, No sputum, No wheezing GI: No nausea, No vomiting, No diarrhea, No pain, No melena, No hematochezia, No constipation, No hematemesis G/U: No dysuria, No frequency, No hematuria Musculoskeletal: No bone or joint pain, No back pain, No muscle pain Endocrine: No polyuria, No polydipsia Psychiatric: Prior psych history, Depression, Anxiety, No suicidal ideation, Other (schizophrenia) Hematopoietic: No bruising, No lymphadenopathy Allergic/Immuno: No urticaria, No angioedema Neurological: No syncope, No focal symptoms, No weakness, No paresthesia, No headache, No seizure, No dizziness, No confusion, No vertigo ED Past Medical History - Past Medical History Past Medical History: HTN, Other (schizophrenia; blind) Family History: Heart disease Social History: Non Smoker, No Alcohol, Other (stop smoking and drinking alcohol 30-40 years ago) Surgical History: other (retinal surgery) Psychiatricy History: Depression, Schizophrenia Medication: Reviewed Family Medical History - Family Member Mother History Unknown: Yes Ethnicity: Unknown Living Status: Unknown Hx Family Cancer: (Unknown) Hx Family Coronary Artery Disease: (Unknown) Hx Family Congestive Heart Failure: (Unknown) Hx Family Hypertension: (Unknown) Hx Family Stroke: (Unknown) Hx Family Diabetes: (Unknown) Hx Family Seizures: (Unknown) Hx Family Dementia: (Unknown) Hx Family AIDS: (Unknown) Hx Family HIV: No Hx Family COPD: (Unknown) Hx Family Hepatitis: (Unknown) Hx Family Psychiatric Problems: (Unknown) Hx Family Tuberculosis: (Unknown) Father History Unknown: Yes Ethnicity: Unknown Living Status: Unknown Hx Family Hypertension: Yes Hx Family Psychiatric Problems: Yes ED Physical Exam - Physical Examination General/Constitutional: Awake, Well-developed, well-nourished, Alert, No distress, GCS 15, Non-toxic appearing Other Gen/Cons comments:: Patient is alert and oriented to the exact date Head: Atraumatic Eyes: Lids, conjuctiva normal, PERRL, EOMI Skin: Nl inspection, No rash, No skin lesions, No ecchymosis, Well hydrated, No lymphadenopathy ENMT: External ears, nose nl, Nasal exam nl Other ENMT comments:: Edentulous Neck: Nontender, Full ROM w/o pain, No JVD, No nuchal rigidity, No bruit, No mass, No stridor Respiratory: Nl effort/Exclusion, Clear to Auscultation, No Wheeze/Rhonchi/Rales Cardio Vascular: RRR, No murmur, gallop, rubs, NL S1 S2 GI: No tenderness/rebounding/guarding, No organomegaly, No hernia, Normal BS's, Nondistended, No mass/bruits, No McBurney tenderness : No CVA tenderness Extremities: No tenderness or effusion, Full ROM, normal strength in all extremities, No edema, Normal digits & nails Neuro/Psych: Alert/oriented, DTR's symmetric, Normal sensory exam, Normal motor strength, Judgement/insight normal, Mood normal, Normal gait, No focal deficits Misc: Normal back, No paraspinal tenderness ED Labs/Radiology/EKG Results - Lab Results Results: Laboratory Results - last 24 hr 05/05/18 13:26 Sodium 141 Potassium 3.7 Chloride 108 H Carbon Dioxide 27.3 Anion Gap 9.4 BUN 15 Creatinine 0.7 Est GFR ( Amer) > 60.0 Est GFR (Non-Af Amer) > 60.0 BUN/Creatinine Ratio 21.4 Glucose 100 Calcium 9.4 - EKG Interpretations Rate & Rhythm: normal sinus rhythm with a rate of 88 Cresco: normal axis Comments:: Short CO interval ED Septic Shock - . Is Septic Shock (SBP<90, OR Lactate>4 mmol\L) present?: No ED Reassessment (Disposition) - Reassessment Reassessment Condition:: Unchanged - Diagnosis Diagnosis:: Increased agitation; schizophrenia; depression - Patient Disposition Admitting Medical Physician:: Isael Castillo Admitting Psych Physician:: Daya Angulo Condition at Disposition:: Stable, Unchanged
[2018-05-05 13:55] LABS: ANION GAP 9.4 (7.0-16.0); BUN - UREA NITROGEN 15 mg/dL (7-25); CALCIUM SERUM 9.4 mg/dL (8.6-10.3); CARBON DIOXIDE 27.3 mEq/L (21.0-31.0); CHLORIDE 108 mEq/L (98-107); CREATININE - SERUM 0.7 mg/dL (0.7-1.3); GFR AFRICAN-AMERICAN > 60.0 ml/min (>90); GFR NON AFRICAN-AMERICAN > 60.0 ml/min; GLUCOSE 100 mg/dL (70-105); POTASSIUM SERUM 3.7 mEq/L (3.5-5.1); SODIUM SERUM 141 mEq/L (136-145)
[2018-05-05 15:14] VITALS: BP 121/75
[2018-05-05] MEDS ORDERED: Magnesium Hydroxide (MOM) 30 mL UDC PO PRN (16:05)
[2018-05-05] MEDS: Benztropine 1 MG TAB PO SCH (16:59)
[2018-05-05] MEDS ORDERED: MELATONIN PO SCH (21:00)
[2018-05-06] MEDS: Benztropine 1 MG TAB PO SCH (09:10)
[2018-05-06 10:25] LABS: CHOLESTEROL 132 mg/dL (<200); HDL -HIGH DENSITY LIPOPROTEIN 52 mg/dL (23-92); TRIGLYCERIDES 44 mg/dL (<150)
--- NOTE | 2018-05-06 11:44 | History & Physical ---
ADMIT DATE: 05/06/2018 PATIENT IDENTIFICATION: A 63-year-old male. CHIEF COMPLAINT: "I want to eat." HISTORY OF PRESENT ILLNESS: A 63-year-old resident of [facility], has been followed by myself and Dr. Angulo, brought into the Emergency Room at [facility] for evaluation of increasing agitation, aggressive behavior and significant weight loss and hitting the staff. The patient was evaluated and subsequently admitted. PAST MEDICAL HISTORY: Remarkable for: 1. Hypertension. 2. Asthma. 3. Legally blindness. 4. Degenerative joint disease. 5. Psychotic disorder. MEDICATIONS: At the nursing was reviewed and reconciled appropriately. ALLERGIES: THE PATIENT IS ALLERGIC TO FLUPHENAZINE. SOCIAL HISTORY: Resident of [facility]. No history of smoking cigarette, alcohol, or drug use. FAMILY MEDICAL HISTORY: Remarkable for hypertension. REVIEW OF SYSTEMS: The patient denies any headache, denies any chest pain, shortness of breath, palpitation, dizziness, nausea, vomiting, diarrhea, dysuria, hematuria, hematochezia, melena. No seizure or syncopal episode. PHYSICAL EXAMINATION: GENERAL: Alert, awake, lying in the bed without any acute distress. VITAL SIGNS: Temperature 98, pulse is 66, respiratory rate is 20, blood pressure is 132/70. HEENT: Normocephalic, atraumatic, legally blindness on the right eye noted. No facial asymmetry. Tongue was pink and coated. No lesion noted. Absent upper and lower dentition noted. NECK: Supple, no JVD, no hepatojugular reflex. No lymphadenopathy, thyromegaly or carotid bruit. HEART: Both heart sounds are regular. No S3, no S4, no murmur. CHEST AND LUNG: Equal in expansion, no expiratory wheezing. ABDOMEN: Soft, no guarding, no rigidity. Liver and spleen palpable. No palpable mass. EXTREMITIES: No edema. No cyanosis, no clubbing. Peripheral pulses are +1. No calf tenderness noted. NEUROLOGIC: Alert, awake, follows command, moving upper and lower extremities without any difficulty. Known this is a significant neuro deficit noted. AVAILABLE DIAGNOSTIC DATA: Has been reviewed. Total time reviewing the records approximately 1 minute. CLINICAL IMPRESSION: 1. Hypertension. 2. Asthma. 3. Degenerative joint disease. 4. Legally blindness. 5. Psychotic disorder. 6. High risk for fall. PLAN: 1. Low sodium diet. 2. Antihypertensive medicine. 3. P.r.n. inhalation therapy. 4. Fall precaution. 5. General nursing care. 6. Psych medication. 7. Psych followup. 8. Appropriate home medicine reconciliation. 9. Care plan reviewed and discussed with staff. JOB# [id number]
--- NOTE | 2018-05-06 12:01 | Psychiatric Evaluation ---
DATE OF SERVICE: 05/05/2018 IDENTIFYING INFORMATION: The patient is a 63-year-old male. CHIEF COMPLAINT: "I don't know why I am here." HISTORY OF PRESENT ILLNESS: The patient was sent from [facility] because of agitation and has not been eating much, lost a lot of weight. The patient has no clue about why he is here. He is a well-known case to me. He admits to hearing voices, but they are mumbling voices. They are not command hallucination. The patient is unpredictable, impulsive with long history of psychosis and multiple prior admissions to this facility and other facility. The patient denies any current intent to harm himself or anybody, but he is internally preoccupied. PAST PSYCHIATRIC HISTORY: Multiple prior admissions, because for similar reasons with long history of psychosis. MEDICAL HISTORY: THE PATIENT IS ALLERGIC TO PROLIXIN. The patient is blind in his right eye. The patient also has tardive dyskinesia and hypertension. MEDICATIONS: The patient was started back on his medication, which is amlodipine. FAMILY AND SOCIAL HISTORY: The patient apparently has been staying at [facility] for a long period of time. At this point, the patient denies family history of psychotic disorder. He has been on disability for a long period of time because of his psychosis. MENTAL STATUS EXAMINATION: The patient is appropriately dressed, not very well groomed. He was alert, unable to tell me the date, he knew he was at [facility], he was talking about the voices, mumbling at times, unable to participate in a meaningful conversation or tell me why he is here. He denies any intent to harm himself or anybody, has been sleeping well, but not eating well, lost a lot of weight, specifically maybe 12 pounds that he says. His long-term memory is good to age, date of . Recent memory is poor, cannot remember the events that led to coming here, what he ate for breakfast. Immediate memory is poor, cannot concentrate enough to remember things. His insight about his illness is poor. He does not know what problems he has, judgment is poor because of his psychosis. IMPRESSION: AXIS I: Schizoaffective disorder, bipolar type. MEDICAL DIAGNOSES: Tardive dyskinesia and hypertension. His assets, he wants to get help. Negative poor coping skills. INITIAL TREATMENT PLAN: We will be initiating Remeron. We will just continue the Seroquel 300 mg at bedtime, also he is taking medications for the tardive dyskinesia, but he cannot take it now ____ because it is not on the ____. We will do group therapy, milieu therapy, and individual therapy. ESTIMATED LENGTH OF STAY: 3-7 days. DISCHARGE CRITERIA: Decreasing psychosis, agitation. After discharge, outpatient treatment. JOB# [id number]
[2018-05-07] MEDS ORDERED: Albuterol/Ipratropium Neb 3 ML AERS HHN PRN (14:51)
--- NOTE | 2018-05-08 00:14 | Progress Notes ---
DATE: 05/07/2018 SUBJECTIVE: The patient is seen and examined. OBJECTIVE: GENERAL: The patient is lying in the bed. No new event. VITAL SIGNS: Temperature 98.7, pulse is 80, respiratory rate 18, blood pressure 114/66. HEENT: Legally blindness on the right eye noted. Tongue more pink and coated. Absent upper and lower dentition noted. NECK: Supple, no JVD. HEART: Regular. CHEST AND LUNGS: Equal in expansion, no expiratory wheezing. ABDOMEN: Soft. EXTREMITIES: No edema. AVAILABLE DIAGNOSTIC DATA: Cholesterol 132, LDL of 71, HDL 52, triglyceride 44. MRSA screening is currently pending. CLINICAL IMPRESSION: 1. Hypertension. 2. Asthma. 3. Psychotic disorder. 4. Degenerative joint disease. 5. 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 6. High risk for fall. PLAN: 1. Norvasc. 2. Monitor blood pressure. 3. Antidepression. 4. P.r.n. inhalation therapy. 5. General nursing care. 6. Fall precautions. 7. Nutritional support. 8. Care plan reviewed and discussed with staff. JOB# [id number]
--- NOTE | 2018-05-08 09:35 | Progress Notes ---
DATE: 05/07/[address] Angulo. SUBJECTIVE: The patient was seen and evaluated. The patient's chart reviewed. Nursing staff reported that the patient has been isolative, withdrawn and disengaged. Medications were reviewed, currently on mirtazapine 7.5 mg p.o. at bedtime, Seroquel 300 mg p.o. at bedtime and Ambien as needed. Today on [id number] evaluation, the patient was disengaging, denies any side effects of the medications, he continues to be persevering that there is someone in his residential and he does not want him there. MENTAL STATUS EXAMINATION: Withdrawn, disengaged, suspicious. ASSESSMENT AND PLAN: Due to the patient's still suspicious behavior, withdrawn disengaged state and unable to formulate a safe plan, we will continue monitoring and evaluate with the current medication regimen as Remeron was recently initiated and continue with Seroquel at 300 mg p.o. at bedtime. [facility]# [id number]
--- NOTE | 2018-05-08 20:00 | Progress Notes ---
DATE: 05/08/2018 SUBJECTIVE: Nursing staff reported the patient has been disengaged, withdrawing to his room. Today on [id number] evaluation, the patient is minimally participating in interview. At times waving with his arm, does not want to be interviewed. When attempted to validate his emotions, he becomes more irritable. MENTAL STATUS EXAMINATION: Disengaged, distraught, overwhelmed, disorganized. PLAN: We will continue with Seroquel and Remeron which was recently initiated to that he takes. We will continue with primary psychiatrist's treatment plan and goals. JOB# [id number]
[2018-05-09] MEDS ORDERED: Haloperidol Lactate 5 mg/mL 1mL Vial IM ONE (12:49)
[2018-05-09] MEDS ORDERED: Haloperidol Lactate 5 mg/mL 1mL Vial ONE (12:55)
--- NOTE | 2018-05-09 22:12 | Progress Notes ---
DATE: 05/09/2018 Case was discussed with staff of the patient, reviewed records. The patient continues to look very faint, continues to be unpredictable and impulsive. Continues to have poor insight. He does have tardive dyskinesia as well. He is unable to eat. He is on Remeron 7.5 mg at bedtime as well as Seroquel that was increased to 300 mg at bedtime with no current side effects of tardive dyskinesia some long-term exposure to antipsychotic and we will continue to work with the patient in group therapy, milieu therapy, adjust medication as needed. JOB# [id number]
--- NOTE | 2018-05-10 09:47 | Progress Notes ---
DATE: 05/10/2018 SUBJECTIVE: The patient is seen and examined. The patient is lying in bed. No new event. OBJECTIVE: VITAL SIGNS: Temperature 98.2, pulse 72, respiratory rate 18, blood pressure 113/67. HEENT: Remarkable legally blindness. Tongue was pink and coated. NECK: Supple, no JVD. HEART: Regular. CHEST AND LUNG: Equal in expansion, no expiratory wheezing. ABDOMEN: Soft. EXTREMITIES: No edema. CLINICAL IMPRESSION: 1. Hypertension. 2. Asthma. 3. Degenerative joint disease. 4. Psychotic disorder. 5. Weight loss. 6. Legally blindness. PLAN: 1. Nutritional support. 2. Antihypertensive medicine. 3. Asthma, p.r.n. muscle therapy. 4. Psych medication. 5. Psych followup. 6. General nursing care. 7. We will continue to follow this patient during the stay in the hospital. JOB# [id number]
--- NOTE | 2018-05-10 20:43 | Progress Notes ---
DATE: 05/10/2018 SUBJECTIVE: Case was discussed with staff of the patient, reviewed records. The patient yesterday, got very agitated, had to be medicated, continues to be overwhelmed. He reports hearing voices ____. He continues to have poor insight. He reports he is sleeping better, eating better. I will be increasing his Seroquel dose to 350 mg at bedtime and so far no side effects, no sedation, no nausea, no extrapyramidal symptoms. We will continue the patient in group therapy, milieu therapy and adjust medications. JOB# [id number]
--- NOTE | 2018-05-11 23:54 | Progress Notes ---
DATE: 05/11/2018 Case was discussed with staff of the patient, reviewed records. The patient is being rambling today, continues to be internally preoccupied, unpredictable and impulsive. He tolerated the increase in his Seroquel dose with no side effects. He does have tardive dyskinesia, which is long-term side effects of taking antipsychotic for a long period of time for which he is on Ingrezza for that. However, he does not have his medication here, is not in the ____ I will continue with the patient in group therapy, milieu therapy, adjust the medication as needed. JOB# [id number]
--- NOTE | 2018-05-12 16:38 | Progress Notes ---
DATE: 05/12/2018 Case was discussed with staff of the patient, reviewed records. The patient continues to be easily agitated. Continues to have poor insight. Continues to be unable to make safe plan for self-care. He continues to be responding to internal stimuli; however, he has been a little bit easier to redirect and the patient has tardive dyskinesia, but no other side effects with the medication. I will be increasing Seroquel to 400 mg at bedtime to help with his psychotic symptoms. We will continue outpatient group therapy, milieu therapy, and adjust medication as needed. JOB# [id number]
--- NOTE | 2018-05-13 21:01 | Progress Notes ---
DATE: 05/13/2018 Case was discussed with staff of the patient, reviewed records. The patient looked disheveled, disorganized, internally preoccupied, responding to internal stimuli. Continues to be unpredictable, impulsive, needing redirection. Sleeping better. Eating better. No side effects with the medication, no sedation, no nausea, no extrapyramidal symptoms; however, does have tardive dyskinesia, which is because of long-term exposure to antipsychotic and I did increase the Seroquel yesterday to 400 mg a day. I will continue outpatient group therapy, milieu therapy, and adjust the medications as needed. JOB# [id number]
--- NOTE | 2018-05-15 18:59 | Progress Notes ---
DATE: 05/14/2018 SUBJECTIVE: The patient was seen and evaluated. The patient's chart reviewed. Covering for Dr. Angulo. Overnight, the patient still observed to be disorganized, disheveled and internally preoccupied. Today on [id number]-[id number] evaluation, upon approach, the patient becomes very irritable, impulsive and unpredictable, needing redirection for linear conversation, although he is noted to be sleeping and eating better by nursing staff. MENTAL STATUS EXAMINATION: ____ agitated, unpredictable. ASSESSMENT AND PLAN: At this time, the patient has still residual disorganized thought process, but the patient has been tolerating excess Seroquel without complication. We will continue monitoring and evaluating and continue with group therapy, milieu and adjusting medications as needed. JOB# [id number]
--- NOTE | 2018-05-16 10:27 | Progress Notes ---
DATE: IDENTIFICATION: A 63-year-old male. SUBJECTIVE: The patient is seen and examined. The patient is lying in the bed. No new event. PHYSICAL EXAMINATION: VITAL SIGNS: Temperature 97.3, pulse 70, respiratory rate is 18, blood pressure 108/60. HEENT: No facial asymmetry. NECK: Supple, no JVD. HEART: Regular. LUNGS: Clear. ABDOMEN: Soft. EXTREMITIES: No edema. CLINICAL IMPRESSION: 1. Hypertension. 2. Asthma. 3. Degenerative joint disease. 4. Dementia. 5. Psychotic disorder. 6. Legally blindness. PLAN: 1. Antihypertensive medicine. 2. Low sodium diet. 3. P.r.n. inhalation therapy. 4. Psychiatric medication. 5. General nursing care. 6. Fall precaution. 7. Nutritional support. 8. Care plan reviewed and discussed. JOB# [id number]
--- NOTE | 2018-05-16 11:05 | Progress Notes ---
DATE: 05/15/2018 The patient was seen and evaluated. The patient's chart reviewed. The patient is in his room, easily agitated upon interview and minimally engages. MENTAL STATUS EXAMINATION: Disengaged, distraught, disorganized. ASSESSMENT AND PLAN: We will continue with Seroquel and Remeron to continue to target the patient's disorganized state. JOB# [id number]
--- NOTE | 2018-05-17 01:58 | Progress Notes ---
DATE: 05/16/2018 Case was discussed with staff of the patient, reviewed records. The patient is alert, oriented to place, person, and time, and situation. Continues to look disheveled, disorganized, internally preoccupied. Continues to have poor insight about the whole process. No current side effects besides tardive dyskinesia. He is able to sit in groups and he is able to express himself and tell me the date and his lab work showed chemistry panel within normal range. Lipid panel with low LDL cholesterol and we will continue to work with the patient in group therapy, milieu therapy, and adjust medication as needed. JOB# [id number]
--- NOTE | 2018-05-17 15:46 | Progress Notes ---
DATE: 05/17/2018 Case was discussed with staff of the patient, reviewed records. The patient continues to be internally preoccupied, looking disheveled, disorganized. Continues to have poor insight. He is sleeping better, eating better. No side effects of the medication, no sedation, no nausea, no extrapyramidal symptoms. We will continue the patient in group therapy, milieu therapy, and adjust medications as needed. [facility]# [id number]
--- NOTE | 2018-05-18 14:11 | Progress Notes ---
DATE: 05/18/2018 SUBJECTIVE: Case was discussed with staff of the patient, reviewed records. The patient continues to ____ somewhat paranoid today, reports that some people of here has not been nice to him. Continues to be unpredictable, impulsive, needing redirection. He is eating better, sleeping better. He denies any current intent to harm himself or anybody, but still acting psychotic, paranoid. I will be increasing Seroquel to 450 mg at bedtime. We will continue to work with the patient in group therapy, milieu therapy, and adjust the medication as needed. JOB# [id number]
--- NOTE | 2018-05-18 18:32 | Progress Notes ---
DATE: 05/18/2018 SUBJECTIVE: The patient seen and examined. The patient is lying in the bed. The patient denies any chest pain, increasing shortness of breath, cough or congestion. The nursing staff does not report anything unusual event. OBJECTIVE: VITAL SIGNS: Temperature 98.4, pulse 87, respiratory rate 18, blood pressure 106/73. HEENT: No facial asymmetry, legally blindness noted. Tongue was pink and coated. Absent upper and lower dentition noted. NECK: Supple, no JVD. HEART: Regular. CHEST AND LUNGS: Equal in expansion, no expiratory wheezing. ABDOMEN: Soft. No guarding, no rigidity. Bowel sounds present. No palpable mass. EXTREMITIES: No edema, no cyanosis. CLINICAL IMPRESSION: 1. Psychotic disorder exacerbation. 2. Hypertension. 3. Asthma. 4. Degenerative joint disease. 5. Psychotic disorder. 6. 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 7. High risk for fall. PLAN: 1. Monitor blood pressure. 2. Antihypertensive medicine. 3. P.r.n. inhalation therapy. 4. Psych medication. 5. Psych followup. 6. Nutritional support. 7. Fall precaution. 8. General nursing care. 9. Care plan reviewed and discussed with staff. JOB# [id number]
[2018-05-18] MEDS: QUEtiapine Fumarate 400 MG, QUEtiapine Fumarate 50 MG PO SCH (21:11)
--- NOTE | 2018-05-19 14:51 | Progress Notes ---
DATE: 05/19/2018 Case was discussed with staff of the patient, reviewed records. The patient is eating 100% of his food. He is sleeping better. Continues to look very thin, emaciated. He denies any current intent to harm himself or anybody. He continues to be internally preoccupied. When asked, he denies any additional visual hallucination. No current side effects with the medication besides tardive dyskinesia. I will continue outpatient group therapy, milieu therapy and adjust medication as needed. JOB# [id number]
[2018-05-19] MEDS: QUEtiapine Fumarate 400 MG, QUEtiapine Fumarate 50 MG PO SCH (20:38)
--- NOTE | 2018-05-20 12:42 | Progress Notes ---
DATE: 05/20/2018 Case was discussed with staff of the patient, reviewed records. The patient continues to be talking to himself. Continues to be unpredictable, impulsive, continues to have poor insight. He is sleeping better, eating better. At this point, he is eating 100% of his food, so he is working on discharge plan. No side effects with the medication, no sedation or nausea, but he does have tardive dyskinesia. We will continue the patient in group therapy, milieu therapy, and adjust medication as needed. JOB# [id number]
--- NOTE | 2018-05-20 19:29 | Progress Notes ---
DATE: 05/20/2018 SUBJECTIVE: The patient seen and examined. The patient is possibly going to be discharged to halfway. The patient remained hemodynamically stable. The patient denies any new complaint. OBJECTIVE: VITAL SIGNS: Temperature 97, pulse is 74, respiratory rate 18, blood pressure 111/69. HEENT: Legally blindness. NECK: Supple, no JVD. HEART: Regular. CHEST AND LUNGS: Equal in expansion, no expiratory wheezing. ABDOMEN: Soft. EXTREMITIES: No edema. CLINICAL IMPRESSION: 1. Hypertension. 2. Psychotic disorder. 3. History of asthma. 4. DJD. 5. High risk for fall. 6. Legally blindness. 7. Protein calorie malnutrition. PLAN: 1. Monitor blood pressure. 2. Antihypertensive medicine. 3. Psych medication. 4. Psych followup. 5. Nutritional support 6. Fall precaution. 7. General nursing care. 8. The patient can be downgraded to lower level of care from medical standpoint. JOB# [id number]
[2018-05-20] MEDS: QUEtiapine Fumarate 400 MG, QUEtiapine Fumarate 50 MG PO SCH (20:44)
--- NOTE | 2018-05-21 06:45 | Progress Notes ---
DATE: 05/21/2018 SUBJECTIVE: The patient coming in from [place] with agitation, not eating much, losing weight, very confused, disoriented. On [id number], the patient refusing to talk to me, refusing interview, the patient is still talking to self, unpredictable, impulse, poor insight with apparently approaching his baseline, per documentation safe discharge plan is trying to be arranged. ASSESSMENT: The patient refusing to speak with me, but seems to be approaching his baseline. I did review Dr. Angulo notes. Per staff, he has been calm, but confused, suspicious, at times paranoid, unpredictable, disorganized in his thought processes. Medications were reviewed. We will monitor and follow up. JOB# [id number]
[2018-05-21] MEDS: QUEtiapine Fumarate 400 MG, QUEtiapine Fumarate 50 MG PO SCH (21:17)
--- NOTE | 2018-05-22 08:06 | Progress Notes ---
DATE: 05/22/2018 SUBJECTIVE: The patient coming in from [place], agitation, not been eating much, lost weight. On [id number], the patient remains disoriented, slept for about 5-1/2 hours, blind, using the urinal for voiding, needs assistance to the urinal, confused, AO to name, noted to be unpredictable, disorganized, withdrawn, somewhat depressed, mostly isolative. ASSESSMENT: The patient is confused, needing a higher level of redirection, remains unpredictable, unable to care for basic needs, needs help with this position planning on high doses of Seroquel. PLAN: We will continue to monitor, adjust and titrate medications. The patient is to follow up with Dr. Angulo in the morning. JOB# [id number]
[2018-05-22] MEDS: QUEtiapine Fumarate 400 MG, QUEtiapine Fumarate 50 MG PO SCH (19:59)
[2018-05-23] MEDS: QUEtiapine Fumarate 400 MG, QUEtiapine Fumarate 50 MG PO SCH (21:17)
--- NOTE | 2018-05-23 22:36 | Progress Notes ---
DATE: 05/23/2018 Case was discussed with staff of the patient, reviewed records. The patient continues to be internally preoccupied. Continues to have poor insight. Continues to look disheveled, but he is sleeping better. He is eating better. He is compliant with the medication with no side effects, beside tardive dyskinesia. No sedation, no nausea, no extrapyramidal symptoms and we will continue to work with the patient in group therapy, milieu therapy, and adjust medication as needed. JOB# [id number]
--- NOTE | 2018-05-24 17:52 | Progress Notes ---
DATE: 05/24/2018 Case was discussed with staff of the patient, reviewed records. The patient continues to in general have poor insight; however, he is able to carry on a conversation better, is sleeping better, eating better. No side effects from the medication, no sedation, no nausea, no extrapyramidal symptoms, working on discharge plan. The patient seems to be showing progress and progressively getting better and I am not sure maybe this is the best he can do so, working on discharge plan. We will continue to work with the patient in group therapy, milieu therapy, and adjust medications as needed. JOB# [id number]
[2018-05-24] MEDS: QUEtiapine Fumarate 400 MG, QUEtiapine Fumarate 50 MG PO SCH (20:51)
--- NOTE | 2018-05-25 09:12 | Progress Notes ---
DATE: 05/25/2018 Case was discussed with staff of the patient, reviewed records. The patient continues to isolate himself, internally preoccupied, but in general, staff reports that he is eating better. I asked to have him wait to see if he gained any weight. He tolerated the increase in Seroquel with no side effects, no sedation or nausea, no extrapyramidal symptoms. He has also on Remeron 7.5 mg at bedtime to help with depression and poor appetite and work with the patient in group therapy, milieu therapy, and adjust medications as needed. JOB# [id number]
--- NOTE | 2018-05-25 18:29 | Progress Notes ---
DATE: 05/25/2018 SUBJECTIVE: The patient seen and examined. The patient is sitting in the chair. No new event, eating 100% of his meal, weight has pretty much remained the same. PHYSICAL EXAMINATION: Today's exam; VITAL SIGNS: Temperature 98.1, pulse is 65, respiratory rate 18, and blood pressure 124/73. HEENT: No facial asymmetry. Multiple absent teeth noted. Legally blindness in the right eye noted. Tongue was pink and coated. NECK: Supple, no JVD. HEART: Regular. CHEST AND LUNGS: Equal in expansion, no expiratory wheezing. ABDOMEN: Soft. EXTREMITIES: No edema. CLINICAL IMPRESSION: 1. Hypertension. 2. Degenerative joint disease. 3. Psychotic disorder. 4. Weight loss, stable. 5. History of asthma. 6. Vitamin D deficiency. 7. Degenerative joint disease. 8. Fall risk. PLAN: 1. Psychotic evaluation and management deferred to psychiatrist. 2. Antihypertensive medicine. 3. P.r.n. inhalation therapy. 4. Vitamin D3 supplement. 5. General nursing care. 6. Fall precaution. 7. Nutritional support. 8. The patient is medically stable to be discharged to lower level of care. 9. Care plan reviewed and discussed with psychiatrist. JOB# [id number]
[2018-05-25] MEDS: QUEtiapine Fumarate 400 MG, QUEtiapine Fumarate 50 MG PO SCH (20:57)
--- NOTE | 2018-05-26 13:35 | Progress Notes ---
DATE: 05/26/2018 Case was discussed with Dr. Turk who is his medical doctor and I discussed with him the fact the patient has not gained any weights and he said he did everything he could. He does not believe he will add any more medication to him. I have him on Seroquel and Remeron that both could make him gain weight. Also the Seroquel would help with his psychotic symptoms. No side effects with the medication. No sedation, no nausea, no extrapyramidal symptoms. At this point, if he continues to show progress, we will plan to discharge him tomorrow and we will continue outpatient group therapy, milieu therapy, adjust the medications as needed. JOB# [id number]
[2018-05-26] MEDS: QUEtiapine Fumarate 400 MG, QUEtiapine Fumarate 50 MG PO SCH (20:57)
--- NOTE | 2018-05-27 13:16 | Discharge Summary ---
DATE OF DISCHARGE: 05/27/2018 IDENTIFYING INFORMATION: The patient is a 63-year-old male. CHIEF COMPLAINT: "I don't know why I am here." HISTORY OF PRESENT ILLNESS: The patient was [facility] because of agitation and has been eating much less, lost a lot of weight. The patient does not know why he was in this facility. He is a well-known case to me. I have been seeing for the past few years, hearing voices, but they are mumbling voices. They are not command hallucination. The patient unpredictable, impulsive long history of psychosis, multiple prior admissions to this facility and other facility. No intent to harm self or anybody, internally preoccupied. The patient is allergic to Prolixin. The patient is blind in his right eye, he has tardive dyskinesia and has been on Ingrezza for tardive dyskinesia. Also have hypertension. COURSE IN THE HOSPITAL: The patient was diagnosed with schizoaffective disorder, bipolar type, who was continued medication Seroquel and the dose was increased over the course of his stay to 450 mg at bedtime, also added Remeron to help with his appetite 7.5 mg at bedtime. He was continued also with amlodipine for blood pressure, albuterol inhaler, and Ambien as needed. became more animated. He was eating this according to staff, 100% of his food. I talked to Dr. Turk 2 days prior to discharge and I have told him about the situation as the staff told me he has been gaining weight. However, Dr. Turk said that he did everything he could and he cannot add any more medication. So as patient was at his basic level of functioning and he was eating 100% of his food according to the staff. He was sleeping well. No acting out behavior. No suicidal ideation. No homicidal ideation. He could be discharged to a lesser level of care. FINAL DIAGNOSES: AXIS I: Schizoaffective disorder, bipolar type. MEDICAL DIAGNOSES: Hypertension, asthma. The patient is blind in his right eye. The patient has tardive dyskinesia. The patient will be discharged back to [facility]. I will follow up with the patient there as well as Dr. Turk. EXPECTED OUTCOME: Stable, if the patient complies with the above. [facility]# [id number]
== END 2018-05-27 19:02 | DRG 885 ==
LOC: ER 13:00 → GERO 14:20
PROVIDERS: ADMIT Psychiatry & Neurology Psychiatry; ATTEND Psychiatry & Neurology Psychiatry
DX: F25.0 Schizoaffective disorder, bipolar type (principal); F23 Brief psychotic disorder; G24.01 Drug induced subacute dyskinesia; I10 Essential (primary) hypertension; J45.909 Unspecified asthma, uncomplicated; M19.90 Unspecified osteoarthritis, unspecified site; Z66 Do not resuscitate; H54.8 Legal blindness, as defined in USA; F29 Unspecified psychosis not due to a substance or known physiological condition; R63.4 Abnormal weight loss; T50.905A Adverse effect of unspecified drugs, medicaments and biological substances, initial encounter; Y92.89 Other specified places as the place of occurrence of the external cause; E55.9 Vitamin D deficiency, unspecified; Z88.8 Allergy status to other drugs, medicaments and biological substances; Z68.20 Body mass index [BMI] 20.0-20.9, adult; Z91.81 History of falling; Z82.49 Family history of ischemic heart disease and other diseases of the circulatory system
CPT/HCPCS: 36415-UA; 80048-TC; 80053-TC; 80061-TC; 82948-90; 83036-90; 83605; 84484-TC; 85025-TC; 90899; 93005; 94760; G0410; J1200; J1630; J2060; Z7610

== ENCOUNTER 2019-10-09 | Inpatient (IN) | payer MEDICARE, MEDICAID ==
[2019-10-10] MEDS ORDERED: Magnesium Hydroxide (MOM) 30 mL UDC PO PRN (00:48)
[2019-10-10] MEDS ORDERED: Maalox 30 mL Cup PO PRN (00:48)
[2019-10-10 00:56] VITALS: BP 123/67
--- NOTE | 2019-10-10 12:22 | History & Physical ---
ADMIT DATE: 10/09/2019 IDENTIFYING INFORMATION: The patient is a 64-year-old male. HISTORY OF PRESENT ILLNESS: The patient referred from [facility] after being medically cleared from [place]. The patient has been agitated, delusional, hallucinating, and not willing to take his medication, acting aggressive, screaming, playing with his bowel movements. When I tried to talk to him, the patient was rambling, unable to participate in a meaningful conversation ,unable to make safe plan for self-care, which is unlike him. He usually does not really ramble that much, he just talk to himself. I asked about suicide and homicide, he would not answer. He is a well-known case, seeing him for a few years with schizoaffective disorder, bipolar 2 type. PAST PSYCHIATRIC HISTORY: Multiple prior admissions to this facility for similar reasons. MEDICAL HISTORY: Hypertension, COPD, bronchial asthma, and tardive dyskinesia. Deferred to the medical doctor. ALLERGIES: THE PATIENT IS ALLERGIC TO PROLIXIN AND FLUPHENAZINE. MEDICATIONS: The patient has been on Seroquel 75 mg daily. SOCIAL HISTORY: The patient is single, never , no children, has been at [facility] for the past few years. No family involvement. Unable to tell me how long he went in school. Denies substance abuse. MENTAL STATUS EXAMINATION: The patient is appropriately dressed, not well groomed, he is very thin, who was rambling to himself, unable to talk coherently to me, internally preoccupied, unable to make safe plan for self-care, unable to participate in a meaningful conversation. Long or short term memory is poor because of his psychosis. Insight and judgment is impaired and internally preoccupied, responding to some. IMPRESSION: Schizoaffective disorder, bipolar type, with psychosis and tardive dyskinesia. His assets, he is accepting treatment. Negative poor coping skills. INITIAL TREATMENT PLAN: The patient will continue his medication. We will do group therapy, milieu therapy, and individual therapy. ESTIMATED LENGTH OF STAY: 3-7 days. DISCHARGE CRITERIA: Decreasing psychosis, agitation. After discharge, outpatient treatment. JOB# [id number] [facility]
--- NOTE | 2019-10-11 19:30 | Progress Notes ---
DATE: 10/11/2019 Case was discussed with staff of the patient, reviewed records. The patient continues to be psychotic and not making sense. Continues to be responding to internal stimuli, delusional, nonsensical statements, unable to make safe plan for self-care. No side effects of the medication, no sedation, no nausea, no extrapyramidal symptoms. I will continue with the Seroquel 75 mg daily. We will adjust the medication as needed. We will continue the patient in group therapy, milieu therapy, and adjust medications as needed. JOB# [id number]
[2019-10-12] MEDS: Multivitamin w/ Minerals Tab PO SCH (08:21)
--- NOTE | 2019-10-12 09:36 | History & Physical ---
ADMIT DATE: 10/12/2019 Please note that this patient was admitted on 10/10/2019. I was notified by staff that the patient was admitted on 10/11/2019. CHIEF COMPLAINT: "I am fine." HISTORY OF PRESENT ILLNESS: A 64-year-old resident of [facility] has been followed by myself as well as Dr. Angulo at facility, brought into the Emergency Room on 10/10/2019 for aggressive behavior. The patient was evaluated initially at [facility] Emergency Room and subsequently admitted to [facility]. PAST MEDICAL HISTORY: Remarkable for: 1. Hypertension. 2. Asthma. 3. Degenerative joint disease. 4. Psychiatric disorder. 5. 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 MEDICATIONS: At the time of transfer from longterm has been reviewed and reconciled appropriately. ALLERGIES: THE PATIENT IS ALLERGIC TO FLUPHENAZINE. SOCIAL HISTORY: He is a resident of longterm. No history of smoking cigarette, alcohol, or drug use. FAMILY HISTORY: Remarkable for hypertension. REVIEW OF SYSTEMS: The patient denies any headache. Denies any chest pain, shortness of breath, palpitation, dizziness, nausea, vomiting, diarrhea, dysuria, hematuria, hematochezia, melena. No history of any seizure or syncopal episode. No history of any cough, no history of any skin rash. No history of any fever or chills. PHYSICAL EXAMINATION: GENERAL: A 64-year-old, alert, awake, lying in the bed, ill appearing without any acute distress. VITAL SIGNS: Temperature 98.6, pulse is 74, respiratory rate 18, blood pressure 144/66. HEENT: Normocephalic, atraumatic. Extraocular muscles are intact. Legally blindness from right eye noted. Multiple absent teeth noted. No facial asymmetry. Tongue was pink and coated. No oral lesions noted. No exudate. No sinus tenderness. NECK: Supple. No JVD, no hepatojugular reflux, no lymphadenopathy, thyromegaly or carotid bruit. HEART: Both heart sounds are regular. No S3, no S4, no murmur. CHEST AND LUNGS: Equal in expansion, no expiratory wheezing. ABDOMEN: Soft, no guarding, no rigidity. Liver, spleen palpable. No palpable mass. Bowel sounds are present. EXTREMITIES: No edema, no cyanosis or clubbing. Peripheral pulses +1. No calf tenderness noted. NEUROLOGIC: Alert, awake, follows command, moving upper and lower extremities without any difficulty. No gross neuro deficit noted. AVAILABLE DIAGNOSTIC DATA: Performed at [facility] Emergency Room has been reviewed. CLINICAL IMPRESSION: 1. Psychiatric disorder exacerbation requiring inpatient hospitalization. 2. Hypertension. 3. Bronchial asthma. 4. Degenerative joint disease. 5. 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 6. Fall risk. 7. Debility. PLAN: 1. Psychiatric evaluation and management has been deferred to psychiatrist. 2. Monitor blood pressure. 3. Low sodium diet. 4. Antihypertensive medicine. 5. Appropriate home medication reconciliation. 6. P.r.n. inhalation therapy. 7. General nursing care. 8. Fall precaution. 9. Nutritional support. 10. Symptoms management. 11. Medication management. 12. Care plan reviewed and discussed with staff. JOB# [id number]
--- NOTE | 2019-10-12 16:19 | Progress Notes ---
DATE: 10/12/2019 SUBJECTIVE: A 64-year-old male coming in from [place], delusional, agitated. The patient rambling on exam, covered in a blanket, not making any eye contact, not really answering questions in any way that I can understand. Slept for about 7 hours. Apparently legally blind, withdrawn, talk to self. Poor orientation. Medications were reviewed. Ongoing symptoms. Continue dose titration of Seroquel. JOB# [id number]
[2019-10-13] MEDS: Multivitamin w/ Minerals Tab PO SCH (08:22)
--- NOTE | 2019-10-13 16:37 | Progress Notes ---
DATE: 10/13/2019 A 64-year-old male covered with a blanket, mumbling on exam, disorganized, really hard to understand what he is saying. Per staff, slept for about 3 hours, but sleeps most of the daytime, withdrawn, poor orientation, disheveled, unkempt. Medications were noted. Ongoing psychosis, disorganization, difficult to understand what he is saying. I will be titrating his dosing of medications. We will switch his Seroquel to in fact at bedtime dosing. JOB# [id number]
--- NOTE | 2019-10-14 08:06 | Progress Notes ---
DATE: 10/14/2019 SUBJECTIVE: A 64-year-old male, currently covered with a blanket, still mumbling, not really making much sense, hard to understand what he is saying. Slept for about 7 hours, withdrawn, isolative, guarded, cannot really ambulate needs some help, unkempt, still depressed. We will continue to monitor. Does not say much to me this morning. Recent dose increase of the dose changes of Seroquel. JOB# [id number]
[2019-10-14] MEDS: Multivitamin w/ Minerals Tab PO SCH (09:10)
--- NOTE | 2019-10-15 07:27 | Progress Notes ---
DATE: 10/15/2019 SUBJECTIVE: A 64-year-old male referred from [facility] from [place], agitated, delusional, hallucinating, aggressive, screaming. Patient on [id number] generally calm, mumbling to self, seems to be talking to self, having conversations, blind, mostly keeps to self, withdrawn, anxious. ASSESSMENT: The patient remains symptomatic, mumbling incoherently at times, coming in from [place]. PLAN: We will continue to monitor ongoing concerns about his ability to really stay safe at a lower level. JOB# [id number]
[2019-10-15] MEDS: Multivitamin w/ Minerals Tab PO SCH (08:59)
[2019-10-16] MEDS: Multivitamin w/ Minerals Tab PO SCH (08:31)
--- NOTE | 2019-10-16 15:21 | Progress Notes ---
DATE: 10/16/2019 Case was discussed with staff of the patient, reviewed records. The patient has been isolating himself. Continues to be delusional, internally preoccupied. He is able to feed himself. He isolates himself. No side effects with the medication, no sedation, no nausea, no extrapyramidal symptoms. I will be increasing his Seroquel dose to 125 mg at bedtime. No side effects with the medication, no sedation, no nausea, no extrapyramidal symptoms. We will continue to work with the patient in group therapy, milieu therapy, adjust the medication as needed. JOB# [id number]
[2019-10-17] MEDS: Multivitamin w/ Minerals Tab PO SCH (08:12)
--- NOTE | 2019-10-17 22:44 | Progress Notes ---
DATE: 10/17/2019 Case was discussed with staff of the patient, reviewed records. The patient continues to be internally preoccupied, stays to himself. Continues to have poor insight, unable to make safe plan for self-care. He tolerated increase in Seroquel with no side effects. No sedation, no nausea, no extrapyramidal symptoms. I will be increasing his Seroquel to 150 mg at bedtime to help improve his psychotic symptoms. No side effects with the medication, no sedation, no nausea, no extrapyramidal symptoms and we will continue to work with the patient in group therapy, milieu therapy, and adjust medications as needed. JOB# [id number]
[2019-10-18] MEDS: Multivitamin w/ Minerals Tab PO SCH (09:10)
--- NOTE | 2019-10-18 18:43 | Progress Notes ---
DATE: 10/18/2019 SUBJECTIVE: The patient seen and examined. The patient is lying in the bed, no new event. Discussed with staff about the concerns. PHYSICAL EXAMINATION: VITAL SIGNS: Temperature 97.9, pulse is 52, respiratory rate 18, blood pressure 124/74. HEENT: Remarkable for absent upper and lower dentition noted. NECK: Supple, no JVD. HEART: Both heart sounds are regular. CHEST AND LUNGS: Equal in expansion, no expiratory wheezing. ABDOMEN: Soft. Bowel sounds present. No palpable mass. EXTREMITIES: No edema. CLINICAL IMPRESSION: 1. Hypertension. 2. Vitamin D deficiency. 3. Degenerative joint disease. 4. Asthma. 5. Psychotic disorder. PLAN: 1. Continue Norvasc. 2. Vitamin D3. 3. Monitor blood pressure. 4. Psych followup. 5. Symptoms management. 6. Medication management. 7. General nursing care. 8. We will continue to follow this patient during the stay in the hospital. JOB# [id number]
--- NOTE | 2019-10-18 23:25 | Progress Notes ---
DATE: 10/18/2019 Case was discussed with staff of the patient, reviewed records. The patient continues to be rambling, has poor insight, has no clue why he is here. He continues to be responding to internal stimuli. Continues to be easily agitated. I will be increasing the Seroquel today to 150 mg at bedtime. We will continue outpatient group therapy, milieu therapy, adjust the medication as needed. JOB# [id number]
[2019-10-19] MEDS: Multivitamin w/ Minerals Tab PO SCH (08:35)
--- NOTE | 2019-10-19 10:27 | Progress Notes ---
DATE: 10/19/2019 SUBJECTIVE: The patient is seen and examined. The patient is lying in the bed. The patient currently denies any new complaint. OBJECTIVE: VITAL SIGNS: Temperature 97.7, pulse is 66, respiratory rate 18, blood pressure 124/68. HEENT: Legally blindness on the right eye. Tongue more pink and coated. Absent upper and lower dentition noted. NECK: Supple, no JVD, lymphadenopathy, or thyromegaly. HEART: Both heart sounds are regular. CHEST AND LUNGS: Equal in expansion, no expiratory wheezing. ABDOMEN: Soft. Bowel sounds present. No palpable mass. EXTREMITIES: No edema. CLINICAL IMPRESSION: 1. Hypertension. 2. Degenerative joint disease. 3. Psychiatric disorder. 4. History of bronchial asthma. 5. Fall risk. PLAN: 1. Antihypertensive medicine. 2. Monitor blood pressure. 3. Psych medication. 4. Psych followup. 5. Nutritional support. 6. General nursing care. 7. Continue current treatment plan as prescribed. 8. Care plan reviewed and discussed with staff. JOB# [id number]
--- NOTE | 2019-10-19 12:16 | Progress Notes ---
DATE: 10/19/2019 Case was discussed with staff of the patient, reviewed records. The patient continues to be isolating himself, responding to internal stimuli. He continues to be impulsive and unpredictable. He tolerated increase in Seroquel yesterday to 150 mg at bedtime with no side effects, no sedation, no nausea, and no extrapyramidal symptoms. I will continue the patient in group therapy, milieu therapy, adjust the medication as needed. JOB# [id number] MTDD
[2019-10-20] MEDS: Multivitamin w/ Minerals Tab PO SCH (08:13)
--- NOTE | 2019-10-20 14:00 | Progress Notes ---
DATE: 10/20/2019 Case was discussed with staff of the patient reviewed records. The patient continues to talk to himself, internally preoccupied. Continues to be unable to make safe plan for self-care. Looking disheveled and isolating. Unable to carry on a conversation, rambling speech. No side effects with the medication, no sedation, no nausea, no extrapyramidal symptoms and we will continue to work with the patient in group therapy, milieu therapy and adjust medications as needed. JOB# [id number]
[2019-10-21] MEDS: Multivitamin w/ Minerals Tab PO SCH (08:40)
--- NOTE | 2019-10-21 19:27 | Progress Notes ---
DATE: 10/21/2019 Case was discussed with staff of the patient, reviewed records. The patient continues to isolate himself. Continues to be unable to make safe plan for self-care, unpredictable, responding to internal stimuli. No side effects with the medication, no sedation, no nausea, no extrapyramidal symptoms. We will continue outpatient group therapy, milieu therapy, adjust medication as needed. JOB# [id number]
[2019-10-22] MEDS: Multivitamin w/ Minerals Tab PO SCH (08:25)
--- NOTE | 2019-10-22 16:06 | Progress Notes ---
DATE: 10/22/2019 SUBJECTIVE: The patient seen and examined. The patient is lying in the bed, no new event. PHYSICAL EXAMINATION: VITAL SIGNS: Temperature 97.5, pulse is 86, respiratory rate 18, blood pressure 107/59. HEENT: No facial asymmetry. NECK: Supple, no JVD. No lymphadenopathy, thyromegaly or carotid bruit. HEART: Both heart sounds are regular. CHEST AND LUNGS: Equal in expansion, no expiratory wheezing. ABDOMEN: Soft. Bowel sounds are present. No palpable mass. EXTREMITIES: No edema. NEUROLOGIC: Nonfocal. CLINICAL IMPRESSION: 1. Hypertension. 2. History of asthma. 3. Degenerative joint disease. 4. Legally blindness. 5. Fall risk. 6. Required senior living care. PLAN: 1. Monitor blood pressure. 2. Fall precaution. 3. General nursing care. 4. Nutritional support. 5. Follow lab. 6. We will continue to follow this patient during the stay in the hospital. JOB# [id number]
--- NOTE | 2019-10-22 20:16 | Progress Notes ---
DATE: 10/22/2019 Case was discussed with staff of the patient, reviewed records. The patient continues to isolate himself. Continues to be unpredictable, impulsive, needing redirection. Sleeping well, eating well. No side effects with the medication, no sedation, no nausea, no extrapyramidal symptoms. We will continue outpatient group therapy, milieu therapy, adjust medication as needed. JOB# [id number]
[2019-10-23] MEDS: Multivitamin w/ Minerals Tab PO SCH (08:05)
--- NOTE | 2019-10-23 14:14 | Progress Notes ---
DATE: 10/23/2019 Case was discussed with staff of the patient, reviewed records. The patient continues to be talking to himself, though he did show some episodes where he was doing better, but now he is talking to himself again. He is able to feed himself. He is sleeping well and eating better. No side effects with the medication, no sedation, no nausea. I will be increasing his Seroquel to 200 mg at bedtime. No side effects with the medication, no sedation, no nausea, no extrapyramidal symptoms. We will continue to work with the patient in group therapy, milieu therapy, and adjust the medications as needed. JOB# [id number]
--- NOTE | 2019-10-23 17:08 | Progress Notes ---
DATE: 10/23/2019 SUBJECTIVE: The patient is seen and examined. The patient is lying in the bed, no new event. PHYSICAL EXAMINATION: VITAL SIGNS: Temperature 98.1, pulse 62, respiratory rate 18, blood pressure 120/70. HEENT: No facial asymmetry. Legally blindness noted. NECK: Supple, no JVD. HEART: Regular. LUNGS: Clear. ABDOMEN: Soft. EXTREMITIES: No edema. CLINICAL IMPRESSION: 1. Hypertension. 2. Psychotic disorder. 3. Degenerative joint disease. 4. History of asthma. 5. 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 6. Debility. PLAN: 1. Psychotic evaluation and management deferred to psychiatrist. 2. Monitor blood pressure. 3. Antihypertensive medicine. 4. General nursing care. 5. Vitamin D supplement. 6. P.r.n. inhalation therapy. 7. Continue current treatment plan as prescribed. 8. Care plan reviewed and discussed with staff. JOB# [id number]
[2019-10-24] MEDS: Multivitamin w/ Minerals Tab PO SCH (08:07)
--- NOTE | 2019-10-24 12:56 | Discharge Summary ---
DATE OF DISCHARGE: 10/24/2019 HISTORY OF PRESENT ILLNESS: The patient is a 64-year-old male. The patient at [facility] after medically at [place], agitated, delusional, hallucinating, not willing to take his medication, acting aggressive, screaming, playing with his feces. When I tried talk to him, the patient was rambling, unable to pass a meaningful conversation or make safe plan for self-care, which is unlike him. Usually, he does not really ramble that much. He does talk to himself. I asked about suicide and homicide, he would not answer me. . The patient also has a history of bipolar disorder type 2 and source of schizoaffective disorder. MEDICAL DIAGNOSES: Hypertension, bronchial asthma and tardive dyskinesia. COURSE IN THE HOSPITAL: Start Seroquel, increase the dose of Seroquel 200 mg at bedtime. The patient also was continued with amlodipine and multivitamins. The patient progressively got better. He was no longer acting in dangerous manner or psychotic, so we felt he could be discharged to a lesser level of care. FINAL DIAGNOSIS: Schizoaffective disorder, depressed. MEDICAL DIAGNOSES: Deferred to the medical doctor. The patient will follow up with the psychiatrist, primary care physician at [facility]. EXPECTED OUTCOME: Stable if the patient complies above. JOB# [id number] FRANK
== END 2019-10-24 18:00 | DRG 885 ==
LOC: GERO
PROVIDERS: ADMIT Psychiatry & Neurology Psychiatry; ATTEND Psychiatry & Neurology Psychiatry
DX: F25.0 Schizoaffective disorder, bipolar type (principal); G24.01 Drug induced subacute dyskinesia; F29 Unspecified psychosis not due to a substance or known physiological condition; I10 Essential (primary) hypertension; J45.909 Unspecified asthma, uncomplicated; M19.90 Unspecified osteoarthritis, unspecified site; H54.8 Legal blindness, as defined in USA; R53.81 Other malaise; Z88.8 Allergy status to other drugs, medicaments and biological substances
CPT/HCPCS: 83036-90; G0410; Z7610